=== PATIENT | male | born 1960 | race Caucasian/White ===

== ENCOUNTER 2016-10-30 10:12 | Inpatient (IN) | payer BC ==
[~2016-10-30] VITALS: Ht 182.9 cm; Wt 86.4 kg
[~2016-10-30 10:12] MED LIST: LVT/20 PO; OMEP20CA9 PO; ONDA4TAB10 SL; ONDA4TAB54 PO; OXYC-57 PO
[2016-10-30] MEDS ORDERED: DICY20TA10 PO (10:36)
[2016-10-30] MEDS ORDERED: ONDANSETRON 8 MG/54 ML D5W IV STA (10:50)
[2016-10-30] MEDS ORDERED: SODIUM CHLORIDE 0.9% 1000ML 1,000 ML IV STA ×2 (10:52)
[2016-10-30 10:59] LABS: ALT/SGPT 24 U/L (12-78); BLOOD UREA NITROGEN 25 mg/dl (7-18); BUN/CREATININE RATIO 16.5 (10-20); CALCIUM 9.6 mg/dl (8.5-10.1); CARBON DIOXIDE 23 mmol/L (21-32); CHLORIDE 103 mmol/L (98-107); GLUCOSE 126 mg/dl (70-99); POTASSIUM 4.4 mmol/L (3.5-5.1); SODIUM 138 mmol/L (136-145)
[2016-10-30] MEDS ORDERED: HYDROmorphone INJ 1 MG/ML SYR IV PRN (11:00)
[2016-10-30] MEDS ORDERED: OPTIRAY 320 IV PRN (11:00)
[2016-10-30 11:02] LABS: ALKALINE PHOSPHATASE 97 U/L (45-117); AST/SGOT 18 U/L (15-37)
[2016-10-30 11:03] LABS: BASO % 0.1 %; BASO ABS # 0.01 K/uL (0-0.2); COMPLETE YES; EOS % 0.2 %; HEMATOCRIT 50.9 % (42-52); IG% 0.2 %; LYMPH % 6.9 %; LYMPH ABS # 0.84 K/uL (1.2-3.4); MEAN CELL VOLUME 88.5 fL (80-100); MEAN CORPUSCULAR HGB CONC 36.1 g/dl (32-36); MEAN PLATELET VOLUME 10.9 fL (7.4-10.4); MONO % 8.9 %; NEUT % 83.7 %; PLATELET COUNT 287 K/uL (130-400); RED BLOOD COUNT 5.75 M/uL (4.7-6.1); WHITE BLOOD COUNT 12.12 K/uL (4.8-10.8)
[2016-10-30] MEDS ORDERED: METOCLOPRAMIDE HCL INJ 5 MG/ML 2 ML VIAL IV STA (12:12)
[2016-10-30] MEDS ORDERED: DiphenhydrAMINE HCL 50 MG/ML VIAL IV STA (12:12)
--- NOTE | 2016-10-30 14:17 | DIAGNOSTIC IMAGING REPORT ---
CT ABD/PELVIS IV AND ORAL CONT CLINICAL HISTORY: Upper abdominal pain. History of prior cholecystectomy. COMPARISON STUDY: 05/12/2016 TECHNIQUE: Following the IV administration of 93 mL of Optiray-320, CT scan of the abdomen and pelvis was performed from the lung bases to the proximal femurs. Images are reviewed in the axial, sagittal, and coronal planes. IV contrast was administered without complication. CT DOSE: 562.48 mGy.cm FINDINGS: Lower chest: There are increased bibasilar markings with areas of tree in bud opacities. The findings are likely inflammatory/postinflammatory. There is a moderate hiatal hernia Liver: The contrast-enhanced liver is normal in size, contour, and attenuation. There is no intrahepatic biliary ductal dilatation. The hepatic veins and portal veins are patent. Gallbladder: Surgically absent Spleen: Normal in size and attenuation. Pancreas: Unremarkable. Adrenal glands: Unremarkable. Kidneys: There is symmetric renal cortical enhancement. The kidneys are normal in size without hydronephrosis. Bowel: There are multiple dilated fluid-filled small bowel loops with multiple air-fluid levels. The distal ileum is of normal caliber. The findings are consistent with a distal small bowel obstruction. The transition is located within 5 cm of the ileocecal valve. Peritoneum: No free air is visualized. There is a small amount of free pelvic fluid present. Vasculature: The abdominal aorta is normal in course and caliber. Adenopathy: None. Pelvic viscera: The bladder, and pelvic viscera are unremarkable. Skeletal structures: No destructive osseous lesions are seen. IMPRESSION: 1. Interval development of a distal small bowel obstruction. There is a small amount of free pelvic fluid. There is no pneumatosis. There is no portal venous gas. 2. Hiatal hernia 3. No evidence of pathologic adenopathy 4. Tree-in-bud airspace opacities the lung bases. Electronically signed by: Adiel Jones M.D. 10/30/2016 2:15 PM Dictated Date/Time: 10/30/2016 2:08 PM
--- NOTE | 2016-10-30 15:43 | Medical Consult ---
Consultation Date of Consultation: Oct 30, 2016. Attending Physician: Reason for Consultation: SBO History of Present Illness to ER with 3 days of N/V, now some abd pain- h/o prior episodes- "not as bad" h/o lap donald and hiatal hernia repair CT shows distal sbo- sm bowel 4.4 cm Past Medical/Surgical History Medical Problems: (1) Abdominal pain Status: Acute (2) Abnormal abdominal CT scan Status: Acute (3) Hiatal hernia Status: Acute (4) Incarcerated hiatal hernia Status: Acute (5) Intractable abdominal pain Status: Acute (6) Nausea and vomiting Status: Acute (7) Postoperative complication Status: Acute Family History Patient reports no known family medical history. Social History Smoking Status: Never Smoker Drug Use: none Marital Status: Housing Status: lives with family Occupation Status: employed Allergies Coded Allergies: No Known Allergies (Unverified , 05/12/16) Current Inpatient Medications Current Inpatient Medications Medications (Trade) Dose Ordered Sig/Blayne Route Start Time Stop Time Status Last Admin Dose Admin Hydromorphone HCl 1 mg 1 mg Q15M PRN IV 10/30/16 11:00 11/13/16 10:59 10/30/16 11:03 1 MG Sodium Chloride (Nss 1000ml) 1,000 ml @ 125 mls/hr Q8H STAT IV 10/30/16 10:52 10/30/16 18:51 10/30/16 12:14 125 MLS/HR Ioversol (Optiray 320) 111 ml UD PRN IV 10/30/16 11:00 11/03/16 10:59 Review of Systems Constitutional: No chills, No fever Respiratory: No cough, No sputum, No wheezing Cardiovascular: No chest pain Abdomen: + nausea, + pain, + vomiting Musculoskeletal: No joint pain Genitourinary - Male: No dysuria Neurologic: + weakness Endocrine: No fatigue Integumentary: No rash Physical Exam Date Time Temp Pulse Resp B/P Pulse Ox O2 Delivery O2 Flow Rate FiO2 10/30/16 13:48 88 18 148/93 96 Room Air 10/30/16 12:15 93 16 135/89 95 Room Air 10/30/16 12:05 88 10/30/16 10:15 36.3 97 18 124/85 97 Room Air General Appearance: + mild distress (from nausea) Head: normocephalic Eyes: sclerae normal Neck: supple Respiratory/Chest: normal breath sounds Cardiovascular: regular rate, rhythm Abdomen/GI: + distended (mild tenderness, decreased bowel sounds) Extremities/Musculoskelatal: no pedal edema Neurologic/Psych: alert Skin: no rash Laboratory Results Last 24 Hours Test 10/30/16 10:30 10/30/16 10:50 10/30/16 15:14 Sodium Level 138 mmol/L Potassium Level 4.4 mmol/L Chloride Level 103 mmol/L Carbon Dioxide Level 23 mmol/L Anion Gap 12.0 mmol/L Blood Urea Nitrogen 25 mg/dl Creatinine 1.50 mg/dl Est Creatinine Clear Calc Drug Dose 60.4 ml/min Estimated GFR () 59.5 Estimated GFR (Non- 51.3 BUN/Creatinine Ratio 16.5 Random Glucose 126 mg/dl Calcium Level 9.6 mg/dl Total Bilirubin 1.5 mg/dl Direct Bilirubin 0.4 mg/dl Aspartate Amino Transf (AST/SGOT) 18 U/L Alanine Aminotransferase (ALT/SGPT) 24 U/L Alkaline Phosphatase 97 U/L Troponin I < 0.015 ng/ml Total Protein 8.6 gm/dl Albumin 4.4 gm/dl Lipase 82 U/L White Blood Count 12.12 K/uL Red Blood Count 5.75 M/uL Hemoglobin 18.4 g/dL Hematocrit 50.9 % Mean Corpuscular Volume 88.5 fL Mean Corpuscular Hemoglobin 32.0 pg Mean Corpuscular Hemoglobin Concent 36.1 g/dl Platelet Count 287 K/uL Mean Platelet Volume 10.9 fL Neutrophils (%) (Auto) 83.7 % Lymphocytes (%) (Auto) 6.9 % Monocytes (%) (Auto) 8.9 % Eosinophils (%) (Auto) 0.2 % Basophils (%) (Auto) 0.1 % Neutrophils # (Auto) 10.15 K/uL Lymphocytes # (Auto) 0.84 K/uL Monocytes # (Auto) 1.08 K/uL Eosinophils # (Auto) 0.02 K/uL Basophils # (Auto) 0.01 K/uL RDW Standard Deviation 42.2 fL RDW Coefficient of Variation 13.0 % Immature Granulocyte % (Auto) 0.2 % Immature Granulocyte # (Auto) 0.02 K/uL Assessment & Plan 10/30/16- adm with sbo, N/V, severe dehydration and likely abnl electrolytes NG to low/ intermittent suction, check Mg, Phos, IV fluids film in am- monitor progress- if worsens- OR
[2016-10-30] MEDS ORDERED: PROMETHAZINE HCL INJ 12.5 MG in SODIUM CHLORIDE 0.9% 50ML 50 ML IV PRN (16:00)
[2016-10-30] MEDS ORDERED: PROMETHAZINE HCL INJ 25 MG/ML 1 ML VIAL ONE (16:06)
[2016-10-30 16:13] LABS: MAGNESIUM 2.2 mg/dl (1.8-2.4); PHOSPHORUS 1.8 mg/dl (2.5-4.9)
[2016-10-30] MEDS ORDERED: MoRPHine SULFATE 4 MG/ML 1 ML CARP\\VIAL IV PRN (16:15)
[2016-10-30 16:45] VITALS: BP 140/90; PULSE 75; TEMP 36.6; O2SAT 92; Ht 182.9 cm; Wt 86.4 kg
--- NOTE | 2016-10-30 16:45 | EMERGENCY ROOM VISIT NOTE ---
History Report prepared by Bernarda: Shravan Barney Under the Supervision of: Dr. Lauri Martines M.D. First contact with patient: 10:45 Chief Complaint: ABDOMINAL PAIN Stated Complaint: ABD. PAIN Nursing Triage Summary: pt c/o bilat abd pain feels sob and has not eaten or drank in 3 days. sx started 3 days ago History of Present Illness The patient is a 55 year old male who presents to the Emergency Room with complaints of bilateral upper abdominal pain starting 3 days ago. The patient has a history of similar pain occurring prior to having hernia repair and cholecystectomy. He has been having similar pain intermittently for the past year. He also has a history of colonoscopy and endoscopy with normal results. 3 days ago, the patient's pain became constant. He describes it to be waxing and waning. He has intermittent pain radiation through the back. He currently rates a pain intensity of 5/10. He has worsening pain with eating and palpation. The patient also has a bloated abdomen. He also complains of nausea and vomiting. He notes diaphoresis after vomiting episodes. He also has some shortness of breath. He denies any worsening pain with breathing. Pt denies LOC, headache, fevers, chills, visual changes, neck pain, chest pain, melena, hematochezia, urinary symptoms, numbness, weakness, lymphadenopathy, rash, or other complaints. Source of History: patient Onset: 3 days ago Position: abdomen (bilateral upper) Timing: waxes/wanes Modifying Factors (Worsening): eating, other (palpation) Associated Symptoms: + SOB, + diaphoresis, + nausea, + vomiting Review of Systems See HPI for pertinent positives and negatives. A total of ten systems were reviewed and were otherwise negative. Past Medical & Surgical Medical Problems: (1) Hiatal hernia (2) SBO (small bowel obstruction) (3) Unilateral inguinal hernia Surgical Problems: (1) S/P cholecystectomy Family History Patient reports no known family medical history. Social History Smoking Status: Never Smoker Alcohol Use: none Drug Use: none Marital Status: Housing Status: lives with family Occupation Status: employed Current/Historical Medications Scheduled Vardenafil (Levitra), 20 MG PO DIRECTED Scheduled PRN Dicyclomine Hcl (Dicyclomine Hcl), 40 MG PO QID PRN for Pain Omeprazole (Prilosec), 20 MG PO DAILY PRN for pt Oxycodone/Acetaminophen 5MG/325MG (Percocet 5MG/325MG), 1-2 TABS PO Q6 PRN for Pain Allergies Coded Allergies: No Known Allergies (Unverified , 05/12/16) Physical Exam Vital Signs Date Time Temp Pulse Resp B/P Pulse Ox O2 Delivery O2 Flow Rate FiO2 10/30/16 16:32 83 16 137/88 95 Room Air 10/30/16 13:48 88 18 148/93 96 Room Air 10/30/16 12:15 93 16 135/89 95 Room Air 10/30/16 12:05 88 10/30/16 10:15 36.3 97 18 124/85 97 Room Air Physical Exam GENERAL: Awake, alert, uncomfortable-appearing, in mild distress HENT: Normocephalic, atraumatic. Oropharynx unremarkable. EYES: Normal conjunctiva. Sclera non-icteric. NECK: Supple. No nuchal rigidity. FROM. No JVD. RESPIRATORY: Clear to auscultation. CARDIAC: Regular rate, normal rhythm. Extremities warm and well perfused. Pulses equal. ABDOMEN: Soft, non-distended. Left upper quadrant and epigastric tenderness to palpation. No rebound or guarding. No masses. RECTAL: Deferred. MUSCULOSKELETAL: Chest examination reveals no tenderness. The back is symmetrical on inspection without obvious abnormality. There is no CVA tenderness to palpation. No joint edema. LOWER EXTREMITIES: Calves are equal size bilaterally and non-tender. No edema. No discoloration. NEURO: Normal sensorium. No sensory or motor deficits noted. SKIN: No rash or jaundice noted. Medical Decision & Procedures ER Provider Diagnostic Interpretation: CT: Radiology results as stated below per my review and radiologist interpretation CT ABD/PELVIS IV AND ORAL CONT CLINICAL HISTORY: Upper abdominal pain. History of prior cholecystectomy. COMPARISON STUDY: 05/12/2016 TECHNIQUE: Following the IV administration of 93 mL of Optiray-320, CT scan of the abdomen and pelvis was performed from the lung bases to the proximal femurs. Images are reviewed in the axial, sagittal, and coronal planes. IV contrast was administered without complication. CT DOSE: 562.48 mGy.cm FINDINGS: Lower chest: There are increased bibasilar markings with areas of tree in bud opacities. The findings are likely inflammatory/postinflammatory. There is a moderate hiatal hernia Liver: The contrast-enhanced liver is normal in size, contour, and attenuation. There is no intrahepatic biliary ductal dilatation. The hepatic veins and portal veins are patent. Gallbladder: Surgically absent Spleen: Normal in size and attenuation. Pancreas: Unremarkable. Adrenal glands: Unremarkable. Kidneys: There is symmetric renal cortical enhancement. The kidneys are normal in size without hydronephrosis. Bowel: There are multiple dilated fluid-filled small bowel loops with multiple air-fluid levels. The distal ileum is of normal caliber. The findings are consistent with a distal small bowel obstruction. The transition is located within 5 cm of the ileocecal valve. Peritoneum: No free air is visualized. There is a small amount of free pelvic fluid present. Vasculature: The abdominal aorta is normal in course and caliber. Adenopathy: None. Pelvic viscera: The bladder, and pelvic viscera are unremarkable. Skeletal structures: No destructive osseous lesions are seen. IMPRESSION: 1. Interval development of a distal small bowel obstruction. There is a small amount of free pelvic fluid. There is no pneumatosis. There is no portal venous gas. 2. Hiatal hernia 3. No evidence of pathologic adenopathy 4. Tree-in-bud airspace opacities the lung bases. Electronically signed by: Adiel Jones M.D. 10/30/2016 2:15 PM Dictated Date/Time: 10/30/2016 2:08 PM Laboratory Results 10/30/16 10:50 Red Blood Count 5.75, Mean Corpuscular Volume 88.5, Mean Corpuscular Hemoglobin 32.0, Mean Corpuscular Hemoglobin Concent 36.1, Mean Platelet Volume 10.9, Neutrophils (%) (Auto) 83.7, Lymphocytes (%) (Auto) 6.9, Monocytes (%) (Auto) 8.9, Eosinophils (%) (Auto) 0.2, Basophils (%) (Auto) 0.1, Neutrophils # (Auto) 10.15, Lymphocytes # (Auto) 0.84, Monocytes # (Auto) 1.08, Eosinophils # (Auto) 0.02, Basophils # (Auto) 0.01 10/30/16 10:30 Test 10/30/16 10:30 10/30/16 10:50 10/30/16 15:55 Anion Gap 12.0 mmol/L (3-11) Est Creatinine Clear Calc Drug Dose 60.4 ml/min Estimated GFR () 59.5 Estimated GFR (Non- 51.3 BUN/Creatinine Ratio 16.5 (10-20) Calcium Level 9.6 mg/dl (8.5-10.1) Phosphorus Level 1.8 mg/dl (2.5-4.9) Magnesium Level 2.2 mg/dl (1.8-2.4) Total Bilirubin 1.5 mg/dl (0.2-1) Direct Bilirubin 0.4 mg/dl (0-0.2) Aspartate Amino Transf (AST/SGOT) 18 U/L (15-37) Alanine Aminotransferase (ALT/SGPT) 24 U/L (12-78) Alkaline Phosphatase 97 U/L (45-117) Troponin I < 0.015 ng/ml (0-0.045) Total Protein 8.6 gm/dl (6.4-8.2) Albumin 4.4 gm/dl (3.4-5.0) Lipase 82 U/L (73-393) White Blood Count 12.12 K/uL (4.8-10.8) Red Blood Count 5.75 M/uL (4.7-6.1) Hemoglobin 18.4 g/dL (14.0-18.0) Hematocrit 50.9 % (42-52) Mean Corpuscular Volume 88.5 fL (80-100) Mean Corpuscular Hemoglobin 32.0 pg (25-34) Mean Corpuscular Hemoglobin Concent 36.1 g/dl (32-36) Platelet Count 287 K/uL (130-400) Mean Platelet Volume 10.9 fL (7.4-10.4) Neutrophils (%) (Auto) 83.7 % Lymphocytes (%) (Auto) 6.9 % Monocytes (%) (Auto) 8.9 % Eosinophils (%) (Auto) 0.2 % Basophils (%) (Auto) 0.1 % Neutrophils # (Auto) 10.15 K/uL (1.4-6.5) Lymphocytes # (Auto) 0.84 K/uL (1.2-3.4) Monocytes # (Auto) 1.08 K/uL (0.11-0.59) Eosinophils # (Auto) 0.02 K/uL (0-0.5) Basophils # (Auto) 0.01 K/uL (0-0.2) RDW Standard Deviation 42.2 fL (36.4-46.3) RDW Coefficient of Variation 13.0 % (11.5-14.5) Immature Granulocyte % (Auto) 0.2 % Immature Granulocyte # (Auto) 0.02 K/uL (0.00-0.02) Lactic Acid Level 1.3 mmol/L (0.4-2.0) Laboratory results reviewed by me Medications Administered Medications (Trade) Dose Ordered Sig/Blayne Route Start Time Stop Time Status Last Admin Dose Admin Hydromorphone HCl (Dilaudid Inj) 1 mg Q15M PRN IV 10/30/16 11:00 11/13/16 10:59 10/30/16 11:03 1 MG Ondansetron HCl 8 mg 8 mg NOW STAT IV 10/30/16 10:50 10/30/16 10:53 DC 10/30/16 11:02 8 MG Sodium Chloride 1,000 ml @ 125 mls/hr Q8H STAT IV 10/30/16 10:52 10/30/16 18:51 10/30/16 12:14 125 MLS/HR Sodium Chloride (Nss 1000ml) 1,000 ml @ 999 mls/hr Q1H1M STAT IV 10/30/16 10:52 10/30/16 11:52 DC 10/30/16 11:03 999 MLS/HR Metoclopramide HCl (Reglan Inj) 10 mg NOW STAT IV 10/30/16 12:12 10/30/16 12:13 DC 10/30/16 12:21 10 MG Diphenhydramine HCl (Benadryl Inj) 25 mg NOW STAT IV 10/30/16 12:12 10/30/16 12:13 DC 10/30/16 12:21 25 MG Promethazine HCl (Phenergan Inj) 25 mg STK-MED ONCE .ROUTE 10/30/16 16:06 10/30/16 16:08 DC 10/30/16 16:12 12.5 MG ECG Indication: abdominal pain Rate (beats per minute): 91 Rhythm: normal sinus Findings: nonspecific-ST abn (Lateral), no ectopy Comparison ECG Date: March 24, 2016 Change: Nonspecific ST abnormalities in the lateral leads are new when compared to March 24, 2016. ED Course 1045: The patient was evaluated in room A12B. A complete history and physical exam was performed. 1050: Ondansetron HCl 8 mg IV, Sodium Chloride 1000 ml @ 999 mls/hr IV, Sodium Chloride 1000 ml @ 125 mls/hr IV 1100: Dilaudid In 1 mg IV 1212: Benadryl Inj 25 mg IV, Reglan Inj 10 mg IV. The patient is complaining of nausea. 1409: I reevaluated the patient who is resting comfortably. 1600: Upon reexamination, the patient was resting comfortably. I discussed the test results and treatment plan with him. I spoke with EDDIE Novoa with [facility]. The patient will be evaluated for further management. Medical Decision Triage Nursing notes reviewed. The patient's presentation and history were concerning for abdominal pain. Etiologies such as appendicitis, diverticulitis, obstruction, inflammatory bowel disease, renal colic, PUD, biliary pathology, pancreatitis, mesenteric ischemia, aortic pathology, infections, genitourinary, UTI, perforated viscus, as well as others were entertained. Patient was evaluated. He was uncomfortable. He was treated with Zofran and Dilaudid. He was hydrated with normal saline. The patient was prepped for CT imaging. His blood count revealed a mild leukocytosis. Chemistry panel and LFTs were unremarkable. Patient had vomiting and was given Reglan and Benadryl. He was feeling better with this. He still had some abdominal discomfort. The patient had CT imaging and was found to have a small bowel obstruction. Consultation was made to internal medicine for further management in the hospital. Medicine did consult with general surgery. The chart was completed utilizing [employer] Speech voice recognition software. Grammatical errors, random word insertions, pronoun errors, and incomplete sentences are an occasional consequence of this system due to software limitations, ambient noise, and hardware issues. Any formal questions or concerns about the content, text, or information contained within the body of this dictation should be directly addressed to the physician for clarification. Consults Time Called: 1500 Consulting Physician: EDDIE Nvooa with [facility] Returned Call: [phone] I spoke with EDDIE Novoa with [facility]. Impression Primary Impression: SBO (small bowel obstruction) Scribe Attestation The scribe's documentation has been prepared under my direction and personally reviewed by me in its entirety. I confirm that the note above accurately reflects all work, treatment, procedures, and medical decision making performed by me. Departure Information Dispostion Being Evaluated By Hospitalist Referrals No Doctor, Assigned (PCP) Patient Instructions My [facility]
[2016-10-30] MEDS: PANTOprazole INJ 40 MG in SYRINGE 0 ML IV SCH (17:35)
[2016-10-30] MEDS: SODIUM CHLORIDE 0.9% 1000ML 1,000 ML IV SCH (17:35)
[2016-10-30] MEDS ORDERED: SODIUM PHOSPHATE 3 MMOL/1 ML INFUSION IV STA (18:24)
--- NOTE | 2016-10-30 18:32 | DIAGNOSTIC IMAGING REPORT ---
KUB CLINICAL HISTORY: Enteric tube placement. FINDINGS: An AP, portable, supine abdominal radiograph is correlated with abdominal CT performed the same day 10/30/16. An enteric tube is coiled above the diaphragm, likely contained within a hiatal hernia. Cholecystectomy clips are noted. Bowel obstruction persists. No evidence of intraperitoneal free air is seen on this supine examination. No abnormal abdominal calcifications are identified. The skeletal structures are osteopenic. Lumbosacral spondylosis is observed. IMPRESSION: 1. The enteric tube is coiled above the diaphragm, likely contained within a hiatal hernia. 2. Bowel obstruction persists. Electronically signed by: Brown Valerio M.D. 10/30/2016 6:31 PM Dictated Date/Time: 10/30/2016 6:29 PM
[2016-10-30] MEDS ORDERED: SODIUM PHOSPHATE INJ 15 MMOL in SODIUM CHLORIDE 0.9% 250ML 250 ML IV ONE (18:45)
--- NOTE | 2016-10-30 19:27 | DIAGNOSTIC IMAGING REPORT ---
KUB CLINICAL HISTORY: Enteric tube placement repositioning. FINDINGS: An AP, portable, supine abdominal radiograph is compared to KUB and abdominal CT performed the same day 10/30/16. There is unchanged position of the enteric tube, which is coiled above the diaphragm and likely contained within a hiatal hernia. Cholecystectomy clips are noted. Bowel obstruction persists. No evidence of intraperitoneal free air is seen on this supine examination. No abnormal abdominal calcifications are identified. The skeletal structures are osteopenic. Lumbosacral spondylosis is observed. IMPRESSION: 1. Unchanged position of the enteric tube which is coiled above the diaphragm, likely contained within a hiatal hernia. 2. Bowel obstruction persists. Electronically signed by: Brown Valerio M.D. 10/30/2016 7:26 PM Dictated Date/Time: 10/30/2016 7:25 PM
--- NOTE | 2016-10-30 19:43 | History and Physical ---
History & Physical Date & Time of Service: Oct 30, 2016 at 19:23 Chief Complaint: Abdominal Pain, Nausea, Vomiting Primary Care Physician: Dr. Kemp History of Present Illness 55 year old male who presents to the ER with abdominal pain, nausea, and vomiting. Patient reports he started getting sick 3 days ago. He has had persistent nausea and vomiting. He reports LLQ pain. He describes it as dull and persistent. For the past several months, he reports he has been getting episodes of LLQ pain that are sharp and will resolve after a couple of hours. He has been following with GI who started him on Bentyl. He reports he had a formed bowel movement yesterday however it was a small amount. He is unsure when his last normal bowel movement was. He reports increasing abdominal distention. He denies hematemesis or coffee ground emesis. He describes his emesis as bilious. He denies chest pain. He reports some shortness of breath when the pain is severe. No lightheadedness, dizziness, diaphoresis, or syncopal events. He denies fever and chills. No cough or sputum production. No urinary symptoms. In the ER, patient had a CT abd/pelvis that is showing SBO. WBC 12K, creat 1.5. Past Medical/Surgical History Surgical Problems: (1) H/O inguinal hernia repair Status: Chronic (2) History of repair of hiatal hernia Status: Chronic (3) S/P cholecystectomy Status: Chronic Family History Patient reports no known family medical history. Social History Smoking Status: Never Smoker Alcohol Use: none Immunizations History of Tetanus Vaccine?: Yes Tetanus Immunization Date: February 18, 2013 History of Hepatitis B Vaccine: Yes Hepatitis Immunization Date: Mar 02, 2000 Multi-Drug Resistant Organisms History of MDRO: No Allergies Coded Allergies: No Known Allergies (Unverified , 05/12/16) Home Medications Scheduled Vardenafil (Levitra), 20 MG PO DIRECTED Scheduled PRN Dicyclomine Hcl (Dicyclomine Hcl), 40 MG PO QID PRN for Pain Omeprazole (Prilosec), 20 MG PO DAILY PRN for pt Oxycodone/Acetaminophen 5MG/325MG (Percocet 5MG/325MG), 1-2 TABS PO Q6 PRN for Pain Review of Systems 10 point review of systems was completed with the pertinent positives and negatives noted per the HPI Physical Exam Vital Signs Date Time Temp Pulse Resp B/P Pulse Ox O2 Delivery O2 Flow Rate FiO2 10/30/16 16:45 36.6 75 16 140/90 92 Room Air 10/30/16 16:32 83 16 137/88 95 Room Air 10/30/16 13:48 88 18 148/93 96 Room Air 10/30/16 12:15 93 16 135/89 95 Room Air 10/30/16 12:05 88 10/30/16 10:15 36.3 97 18 124/85 97 Room Air General Appearance: + mild distress (due to nausea/pain) Head: normocephalic Eyes: normal inspection ENT: hearing grossly normal Neck: supple, no JVD Respiratory/Chest: lungs clear, normal breath sounds, no respiratory distress Cardiovascular: regular rate, rhythm, no edema Abdomen/GI: soft, + tenderness (LLQ), + abnormal bowel sounds (hyperactive RUQ , RLQ; hypoactive LLQ, LUQ) Extremities/Musculoskelatal: normal inspection, no calf tenderness Neurologic/Psych: no motor/sensory deficits, alert, normal mood/affect, oriented x 3 Skin: normal color, warm/dry Diagnostics Laboratory Results Results Past 24 Hours Test 10/30/16 10:30 10/30/16 10:50 10/30/16 15:55 Range/Units Sodium Level 138 136-145 mmol/L Potassium Level 4.4 3.5-5.1 mmol/L Chloride Level 103 98-107 mmol/L Carbon Dioxide Level 23 21-32 mmol/L Anion Gap 12.0 3-11 mmol/L Blood Urea Nitrogen 25 7-18 mg/dl Creatinine 1.50 0.60-1.40 mg/dl Est Creatinine Clear Calc Drug Dose 60.4 ml/min Estimated GFR () 59.5 Estimated GFR (Non- 51.3 BUN/Creatinine Ratio 16.5 10-20 Random Glucose 126 70-99 mg/dl Calcium Level 9.6 8.5-10.1 mg/dl Phosphorus Level 1.8 2.5-4.9 mg/dl Magnesium Level 2.2 1.8-2.4 mg/dl Total Bilirubin 1.5 0.2-1 mg/dl Direct Bilirubin 0.4 0-0.2 mg/dl Aspartate Amino Transf (AST/SGOT) 18 15-37 U/L Alanine Aminotransferase (ALT/SGPT) 24 12-78 U/L Alkaline Phosphatase 97 45-117 U/L Troponin I < 0.015 0-0.045 ng/ml Total Protein 8.6 6.4-8.2 gm/dl Albumin 4.4 3.4-5.0 gm/dl Lipase 82 73-393 U/L White Blood Count 12.12 4.8-10.8 K/uL Red Blood Count 5.75 4.7-6.1 M/uL Hemoglobin 18.4 14.0-18.0 g/dL Hematocrit 50.9 42-52 % Mean Corpuscular Volume 88.5 80-100 fL Mean Corpuscular Hemoglobin 32.0 25-34 pg Mean Corpuscular Hemoglobin Concent 36.1 32-36 g/dl Platelet Count 287 130-400 K/uL Mean Platelet Volume 10.9 7.4-10.4 fL Neutrophils (%) (Auto) 83.7 % Lymphocytes (%) (Auto) 6.9 % Monocytes (%) (Auto) 8.9 % Eosinophils (%) (Auto) 0.2 % Basophils (%) (Auto) 0.1 % Neutrophils # (Auto) 10.15 1.4-6.5 K/uL Lymphocytes # (Auto) 0.84 1.2-3.4 K/uL Monocytes # (Auto) 1.08 0.11-0.59 K/uL Eosinophils # (Auto) 0.02 0-0.5 K/uL Basophils # (Auto) 0.01 0-0.2 K/uL RDW Standard Deviation 42.2 36.4-46.3 fL RDW Coefficient of Variation 13.0 11.5-14.5 % Immature Granulocyte % (Auto) 0.2 % Immature Granulocyte # (Auto) 0.02 0.00-0.02 K/uL Lactic Acid Level 1.3 0.4-2.0 mmol/L Diagnostic Radiology CT ABD/PELVIS IMPRESSION: 1. Interval development of a distal small bowel obstruction. There is a small amount of free pelvic fluid. There is no pneumatosis. There is no portal venous gas. 2. Hiatal hernia 3. No evidence of pathologic adenopathy 4. Tree-in-bud airspace opacities the lung bases. Impression Assessment and Plan SBO - admit to med/surg - obstruction likely due to adhesions from previous abdominal surgeries - evaluated by Dr. Piña in the ED - will place NG, keep NPO, and follow up abdominal XR in AM - lactate noted to be WNL, vitals stable - IVF, pain and nausea control ALIS - pre renal due to vomiting - IVF, follow up labs in AM HYPOPHOSPHATEMIA - due to GI loss from vomiting - replace, follow up labs in AM LEUKOCYTOSIS - likely reactionary from pain/vomiting - no abdominal source noted on CT however opacities noted at the lung bases - ? aspiration from vomiting - check U/A, urine culture, and CXR DVT PROPHYLAXIS - SCDs DISPO - In my clinical judgment this beneficiary meets acute admission criteria, established by [facility], that includes being hospitalized through two midnights. I have seen and examined the patient above and have discussed the care plan with the provider above. On exam the patient had his NGT in place and he was resting comfortably stating his pain was under control. He was afebrile and hemodynamically stable with a normal heart and lung exam and abdomen that was soft and not distended without guarding and TTP in the LLQ. He recently had a KUB to verify placement of the NGT which revealed the tube end above the diaphragm possibly coiled within his hiatal hernia. It was pulled back and re- advanced, however, a repeat KUB showed it in the same place. I had a discussion with radiology who quoted this to me. I then notified Dr. Piña who agreed that despite the possible aspiration risk we should put the tube to low, intermittent suction to see what relief we can provide. The patient and his were apprised of all this. Cont with care plan as above. Appreciate General Surgery care of this patient-plan for OR if patient worsens. SCDs for DVT prophy in preparation for this possibility. Inge Olivas DO (Hospitalist ) Level of Care Med/Surg Advanced Directives Existing Living Will: No Existing Power of Android Ui Developer: No Resuscitation Status FULL RESUSCITATION VTE Prophylaxis VTE Risk Assessment Done? Y/N: Yes Risk Level: Low Given or contraindicated: SCD's (possible procedure upcoming)
--- NOTE | 2016-10-30 20:35 | DIAGNOSTIC IMAGING REPORT ---
SINGLE VIEW CHEST CLINICAL HISTORY: Leukocytosis. FINDINGS: An AP, portable, upright chest radiograph is compared to study dated 03/24/2016. Correlation is made with abdominal CT dated 10/30/16. The examination is degraded by portable technique and patient rotation. An enteric tube has likely been placed. The cardiomediastinal silhouette is unremarkable. A hiatal hernia is noted. There is atherosclerotic calcification of the thoracic aorta. There is mild elevation of the right hemidiaphragm with bibasilar airspace opacities. The upper lobes appear clear. No pleural effusion are pneumothorax is seen. The skeletal structures are osteopenic. The bony thorax is grossly intact. IMPRESSION: 1. There are nonspecific bibasilar airspace opacities. This could represent atelectasis, developing pneumonia, and/or aspiration pneumonitis. Clinical correlation will be required. 2. An enteric tube has likely been placed. The tip is not well visualized. Electronically signed by: Brown Valerio M.D. 10/30/2016 8:34 PM Dictated Date/Time: 10/30/2016 8:30 PM
[2016-10-30] MEDS ORDERED: INFLUENZA VIRUS QUAD VACCINE 0.5 ML SYR IM. ONE (21:00)
[2016-10-30] MEDS ORDERED: INFLUENZA ADMINISTRATION CHARGE ONE (21:00)
[2016-10-30] MEDS: CHLORASEPTIC 1.4% SOLN 180 ML BTL MT PRN (22:15)
[2016-10-30 23:27] VITALS: BP 146/82; PULSE 81; TEMP 36.9; O2SAT 96
[2016-10-31] VITALS (10 sets, daily range): BP systolic 111–138; BP diastolic 67–86; PULSE 71–92; TEMP 36.2–36.7; O2SAT 91–98
[2016-10-31] MEDS: SODIUM CHLORIDE 0.9% 1000ML 1,000 ML IV SCH ×3 (04:34→10:27)
[2016-10-31] MEDS ORDERED: CEFOXITIN IV 2,000 MG in DEXTROSE 5% 50ML 50 ML IV SCH (06:00)
--- NOTE | 2016-10-31 06:15 | Surgery Progress Note ---
Surgery Progress Note Date of Service Oct 31, 2016. Subjective Lt upper abd pain continues- rec MSO4- pt appears to have minimal improvement vitals stable Objective Vital Signs: Date Time Temp Pulse Resp B/P Pulse Ox O2 Delivery O2 Flow Rate FiO2 10/30/16 23:35 Room Air 10/30/16 23:27 36.9 81 16 146/82 96 Room Air 10/30/16 19:30 Room Air 10/30/16 16:45 36.6 75 16 140/90 92 Room Air 10/30/16 16:32 83 16 137/88 95 Room Air 10/30/16 13:48 88 18 148/93 96 Room Air 10/30/16 12:15 93 16 135/89 95 Room Air 10/30/16 12:05 88 10/30/16 10:15 36.3 97 18 124/85 97 Room Air General Appearance: + mild distress (from abd pain) Respiratory/Chest: no respiratory distress Abdomen: + distended, + tenderness (tender over Lt upper abd- site of distended bowel) Laboratory Results: Results Past 24 Hours Test 10/30/16 10:30 10/30/16 10:50 10/30/16 15:55 10/31/16 04:44 Range/Units Sodium Level 138 136-145 mmol/L Potassium Level 4.4 3.5-5.1 mmol/L Chloride Level 103 98-107 mmol/L Carbon Dioxide Level 23 21-32 mmol/L Anion Gap 12.0 3-11 mmol/L Blood Urea Nitrogen 25 7-18 mg/dl Creatinine 1.50 0.60-1.40 mg/dl Est Creatinine Clear Calc Drug Dose 60.4 ml/min Estimated GFR () 59.5 Estimated GFR (Non- 51.3 BUN/Creatinine Ratio 16.5 10-20 Random Glucose 126 70-99 mg/dl Calcium Level 9.6 8.5-10.1 mg/dl Phosphorus Level 1.8 2.5-4.9 mg/dl Magnesium Level 2.2 1.8-2.4 mg/dl Total Bilirubin 1.5 0.2-1 mg/dl Direct Bilirubin 0.4 0-0.2 mg/dl Aspartate Amino Transf (AST/SGOT) 18 15-37 U/L Alanine Aminotransferase (ALT/SGPT) 24 12-78 U/L Alkaline Phosphatase 97 45-117 U/L Troponin I < 0.015 0-0.045 ng/ml Total Protein 8.6 6.4-8.2 gm/dl Albumin 4.4 3.4-5.0 gm/dl Lipase 82 73-393 U/L White Blood Count 12.12 4.8-10.8 K/uL Red Blood Count 5.75 4.7-6.1 M/uL Hemoglobin 18.4 14.0-18.0 g/dL Hematocrit 50.9 42-52 % Mean Corpuscular Volume 88.5 80-100 fL Mean Corpuscular Hemoglobin 32.0 25-34 pg Mean Corpuscular Hemoglobin Concent 36.1 32-36 g/dl Platelet Count 287 130-400 K/uL Mean Platelet Volume 10.9 7.4-10.4 fL Neutrophils (%) (Auto) 83.7 % Lymphocytes (%) (Auto) 6.9 % Monocytes (%) (Auto) 8.9 % Eosinophils (%) (Auto) 0.2 % Basophils (%) (Auto) 0.1 % Neutrophils # (Auto) 10.15 1.4-6.5 K/uL Lymphocytes # (Auto) 0.84 1.2-3.4 K/uL Monocytes # (Auto) 1.08 0.11-0.59 K/uL Eosinophils # (Auto) 0.02 0-0.5 K/uL Basophils # (Auto) 0.01 0-0.2 K/uL RDW Standard Deviation 42.2 36.4-46.3 fL RDW Coefficient of Variation 13.0 11.5-14.5 % Immature Granulocyte % (Auto) 0.2 % Immature Granulocyte # (Auto) 0.02 0.00-0.02 K/uL Lactic Acid Level 1.3 0.4-2.0 mmol/L Assessment & Plan 10/31/16- I do not think he has improved much- I am concerned about his pain Will proceed to OR this am- laparotomy, lysis of adhesions possible bowel resection- discussed with pt and called - they agree
[2016-10-31] MEDS ORDERED: CEFOXITIN SOD 2 GM VIAL IV STA (06:25)
[2016-10-31] MEDS ORDERED: SUCCINYLCHOLINE CHLORIDE 20 MG/ML 10 ML VIAL IV ONE (06:29)
[2016-10-31] MEDS ORDERED: ONDANSETRON INJ 2 MG/ML 2 ML VIAL ONE (06:29)
[2016-10-31] MEDS ORDERED: FENTANYL CITRATE INJ 50 MCG/1 ML 2 ML VIAL ONE (06:29)
[2016-10-31] MEDS ORDERED: ROCURONIUM BROMIDE 10 MG/ML 5 ML VIAL ONE ×2 (06:29→07:47)
[2016-10-31] MEDS ORDERED: PROPOFOL IV EMULSION 10 MG/ML 20 ML VIAL IV ONE (06:29)
[2016-10-31] MEDS ORDERED: DEXAMETHASONE SOD INJ 4 MG/ML VIAL ONE (06:29)
[2016-10-31] MEDS ORDERED: MIDAZOLAM HCL 1 MG/ML 2ML VIAL ONE (06:29)
[2016-10-31] MEDS ORDERED: LIDOCAINE HCL 2% 2 ML VIAL (20MG/ML) ONE (06:29)
[2016-10-31 06:33] LABS: HEMATOCRIT 46.2 % (42-52); MEAN CELL VOLUME 91.3 fL (80-100); MEAN CORPUSCULAR HEMOGLOBIN 31.8 pg (25-34); MEAN CORPUSCULAR HGB CONC 34.8 g/dl (32-36); PLATELET COUNT 259 K/uL (130-400); RED BLOOD COUNT 5.06 M/uL (4.7-6.1); WHITE BLOOD COUNT 10.04 K/uL (4.8-10.8)
[2016-10-31 06:51] LABS: BUN/CREATININE RATIO 21.4 (10-20); CALCIUM 8.4 mg/dl (8.5-10.1); CREATININE 1.1 mg/dl (0.60-1.40); MAGNESIUM 2.2 mg/dl (1.8-2.4); POTASSIUM 3.9 mmol/L (3.5-5.1)
[2016-10-31 07:08] LABS: PHOSPHORUS 3.2 mg/dl (2.5-4.9)
[2016-10-31] MEDS ORDERED: CEFOXITIN SOD 2 GM VIAL ONE (07:09)
[2016-10-31] MEDS ORDERED: KETAMINE HCL INJ 50 MG/ML 10 ML VIAL ONE (07:32)
[2016-10-31] MEDS ORDERED: HYDROmorphone INJ 2 MG/ML SYR/VIAL ONE (07:43)
[2016-10-31] MEDS ORDERED: ATROPINE SULFATE 0.1 MG/ML 5ML SYR IV PRN (08:00)
[2016-10-31] MEDS ORDERED: MoRPHine SULFATE 10 MG/ML CARP/VIAL IV PRN (08:00)
[2016-10-31] MEDS ORDERED: FLUMAZENIL 0.1 MG/1 ML 10 ML VIAL IV PRN (08:00)
[2016-10-31] MEDS ORDERED: NALOXONE HCL 0.4 MG/1 ML VIAL/CARP IV PRN ×2 (08:00→08:30)
[2016-10-31] MEDS ORDERED: LABETALOL HCL IV 5 MG/ML 20ML IV PRN (08:00)
[2016-10-31] MEDS ORDERED: EpHEDrine SULFATE INJ 50 MG/ML AMP IV PRN (08:00)
[2016-10-31] MEDS ORDERED: ONDANSETRON INJ 2 MG/ML 2 ML VIAL IV PRN (08:00)
[2016-10-31] MEDS ORDERED: PHENYLEPHRINE 100MCG/ML 5ML SYR IV PRN (08:00)
[2016-10-31] MEDS ORDERED: MEPERIDINE HCL 25 MG/ML CARP IV PRN (08:00)
[2016-10-31] MEDS ORDERED: LABETALOL HCL IV 5 MG/ML 20ML ONE (08:17)
[2016-10-31] MEDS ORDERED: ONDANSETRON INJ 2 MG/ML 2 ML VIAL IV. PRN (08:30)
--- NOTE | 2016-10-31 08:30 | [facility] Operative Report ---
Operative Report Operative Date Oct 31, 2016. Pre-Operative Diagnosis Left Upper Abdominal Pain Post-Operative Diagnosis small bowel obstruction from adhesions Procedure(s) Performed laparotomy, lysis of adhesions Surgeon Dr. Narayan Piña [employer] Surgeon(s) Emmanuel Juares PA-C Estimated Blood Loss 20mL Findings omental band and small bowel adhesions Specimens None per surgeon Anesthesia gen Complication(s) None Disposition Recovery Room / PACU I attest to the content of the Intraoperative Record and any orders documented therein. Any exceptions are noted below.
[2016-10-31] MEDS: HYDROmorphone INJ 1 MG/ML SYR IV PRN ×4 (08:35→08:50)
--- NOTE | 2016-10-31 08:47 | OPERATIVE REPORT ---
DATE OF OPERATION: 10/31/2016 NAME OF OPERATION: Laparotomy, lysis of adhesions with enterolysis. PREOPERATIVE DIAGNOSIS: Small-bowel obstruction. POSTOPERATIVE DIAGNOSIS: Same with adhesions and small-bowel obstruction. STAFF SURGEON: Dr. Piña. MACHINE LOAD CLERK: John Juares PA-C. PROCEDURE: The patient was brought in the operating room and placed on the operating table in supine position. His abdomen was prepped and draped in usual fashion. Granado catheter and gastric tube were placed. Incision was made below the umbilicus, carrying dissection down into the abdomen encountering significant ascites from what we had suspected was small-bowel obstruction. I traced the bowel from the ileum proximally and found an area in the left upper quadrant with an omental band down over a loop of jejunum causing severe small-bowel obstruction and then once this was lysed there was also evidence of a small bowel adherent to the mesentery which was causing additional stenosis. These were all taken down, the bowel was completely viable. It was very well open with easy transit of material through the area of stenosis. At this point we irrigated the abdomen and then the posterior fascia and peritoneum were reapproximated using running #1 chromic catgut suture then the anterior fascia reapproximated using both running and interrupted #1 PDS suture. Subcutaneous tissue was irrigated and then partially reapproximated using 2-0 plain catgut suture then the skin reapproximated using sorin. The patient was transferred to recovery room in stable condition. I attest to the content of the Intraoperative Record and any orders documented therein. Any exceptio ns are noted below.
[2016-10-31] MEDS ORDERED: MoRPHine SULFATE 4 MG/ML 1 ML CARP\\VIAL ONE (08:53)
[2016-10-31] MEDS: HYDROmorphone HCL 0.5MG/ML 50 ML CASSETTE IV PRN ×4 (08:59→22:55)
--- NOTE | 2016-10-31 09:15 | Anesthesiology Progress Note ---
Anesthesia Post Op Note Date & Time Oct 31, 2016 at 09:16 Vital Signs Pain Intensity: 4 Vital Signs Past 12 Hours Date Time Temp Pulse Resp B/P Pulse Ox O2 Delivery O2 Flow Rate FiO2 10/31/16 09:10 76 16 111/79 95 Nasal Cannula 2 10/31/16 09:00 72 16 128/83 98 Nasal Cannula 2 10/31/16 08:50 74 16 125/88 98 Mask 10 10/31/16 08:40 70 16 138/90 98 Mask 10 10/31/16 08:30 72 16 147/94 99 Mask 10 10/31/16 08:29 36.8 70 16 150/96 99 Mask 10 10/31/16 06:32 36.2 71 20 138/86 92 Room Air 10/30/16 23:35 Room Air 10/30/16 23:27 36.9 81 16 146/82 96 Room Air Notes Mental Status: alert / awake / arousable, participated in evaluation Pt Amnestic to Procedure: Yes Nausea / Vomiting: adequately controlled Pain: adequately controlled, improving with treatment Airway Patency, RR, SpO2: stable & adequate BP & HR: stable & adequate Hydration State: stable & adequate Anesthetic Complications: no major complications apparent
[2016-10-31] MEDS: PANTOprazole INJ 40 MG in SYRINGE 0 ML IV SCH (10:30)
[2016-10-31 11:35] LABS: URINE APPEARANCE CLEAR (CLEAR); URINE BILIRUBIN NEG (NEG); URINE COLOR DK YELLOW; URINE EPITHELIAL CELL AUTO 20-30 /lpf (0-5); URINE NITRITE NEG (NEG); URINE SPECIFIC GRAVITY 1.045 (1.000-1.030); UROBILINOGEN NEG (NEG)
--- NOTE | 2016-10-31 11:36 | Progress Note ---
Internal Med Progress Note Date of Service: Oct 31, 2016. Provider Documentation: SUBJECTIVE: Patient was taken to OR today AM for SBO. Underwent Laparotomy with adhesiolysis and enterolysis. NG tube + Bit sedated due to anesthesia effect. OBJECTIVE: Vital Signs-as noted below Exam: General-Bit sedated, opens eyes on demand HEENT- NG tube + Neck-Supple, NO JVD Lungs-AEBE decreased, no wheezing, rales Heart-S1, S2 normal Abdomen-Dressing + S/P surgery Extremities-No edema Lab data as noted below. Diagnostic Radiology CT ABD/PELVIS IMPRESSION: 1. Interval development of a distal small bowel obstruction. There is a small amount of free pelvic fluid. There is no pneumatosis. There is no portal venous gas. 2. Hiatal hernia 3. No evidence of pathologic adenopathy 4. Tree-in-bud airspace opacities the lung bases. ASSESSMENT & PLAN: Assessment and Plan : SBO : S/P Laparotomy with adhesiolysis/Enterolysis today by Dr Piña, as persistent SOB with significant pain, no improvement post NG tube decompression -NG tube suctioning, NPO -IV Fluids -Work up- CT scan abd/pelvis- SBO, KUB X 2 - persistent SBO -Surgery on board. Appreciate inputs ALIS - Resolved - pre renal due to vomiting - IVF - Monitor HYPOPHOSPHATEMIA - due to GI loss from vomiting - replaced DVT PROPHYLAXIS - SCDs Post surgery DISPO - To be determined - Discussed with by bedside. Vital Signs: Date Time Temp Pulse Resp B/P Pulse Ox O2 Delivery O2 Flow Rate FiO2 10/31/16 11:00 Nasal Cannula 2.0 10/31/16 10:58 83 16 114/69 93 2.0 10/31/16 10:31 84 16 111/71 98 2.0 10/31/16 10:10 Nasal Cannula 2.0 10/31/16 10:00 36.7 85 16 116/72 94 Nasal Cannula 2.0 10/31/16 09:50 80 16 117/75 95 Nasal Cannula 2 10/31/16 09:40 74 16 127/80 95 Nasal Cannula 2 10/31/16 09:30 37.1 82 16 126/65 95 Nasal Cannula 2 10/31/16 09:20 37.1 82 16 131/81 95 Nasal Cannula 2 10/31/16 09:10 76 16 111/79 95 Nasal Cannula 2 10/31/16 09:00 72 16 128/83 98 Nasal Cannula 2 10/31/16 08:50 74 16 125/88 98 Mask 10 10/31/16 08:40 70 16 138/90 98 Mask 10 10/31/16 08:30 72 16 147/94 99 Mask 10 10/31/16 08:29 36.8 70 16 150/96 99 Mask 10 10/31/16 06:32 36.2 71 20 138/86 92 Room Air 10/30/16 23:35 Room Air 10/30/16 23:27 36.9 81 16 146/82 96 Room Air 10/30/16 19:30 Room Air 10/30/16 16:45 36.6 75 16 140/90 92 Room Air 10/30/16 16:32 83 16 137/88 95 Room Air 10/30/16 13:48 88 18 148/93 96 Room Air 10/30/16 12:15 93 16 135/89 95 Room Air 10/30/16 12:05 88 Lab Results: Results Past 24 Hours Test 10/30/16 15:55 10/31/16 05:50 10/31/16 10:40 Range/Units Lactic Acid Level 1.3 0.4-2.0 mmol/L White Blood Count 10.04 4.8-10.8 K/uL Red Blood Count 5.06 4.7-6.1 M/uL Hemoglobin 16.1 14.0-18.0 g/dL Hematocrit 46.2 42-52 % Mean Corpuscular Volume 91.3 80-100 fL Mean Corpuscular Hemoglobin 31.8 25-34 pg Mean Corpuscular Hemoglobin Concent 34.8 32-36 g/dl RDW Standard Deviation 43.9 36.4-46.3 fL RDW Coefficient of Variation 13.3 11.5-14.5 % Platelet Count 259 130-400 K/uL Mean Platelet Volume 11.0 7.4-10.4 fL Sodium Level 143 136-145 mmol/L Potassium Level 3.9 3.5-5.1 mmol/L Chloride Level 109 98-107 mmol/L Carbon Dioxide Level 26 21-32 mmol/L Anion Gap 8.0 3-11 mmol/L Blood Urea Nitrogen 24 7-18 mg/dl Creatinine 1.10 0.60-1.40 mg/dl Est Creatinine Clear Calc Drug Dose 82.3 ml/min Estimated GFR () 86.5 Estimated GFR (Non- 74.6 BUN/Creatinine Ratio 21.4 10-20 Random Glucose 114 70-99 mg/dl Calcium Level 8.4 8.5-10.1 mg/dl Phosphorus Level 3.2 2.5-4.9 mg/dl Magnesium Level 2.2 1.8-2.4 mg/dl Total Bilirubin 1.0 0.2-1 mg/dl Direct Bilirubin 0.3 0-0.2 mg/dl Aspartate Amino Transf (AST/SGOT) 11 15-37 U/L Alanine Aminotransferase (ALT/SGPT) 20 12-78 U/L Alkaline Phosphatase 74 45-117 U/L Total Protein 6.8 6.4-8.2 gm/dl Albumin 3.4 3.4-5.0 gm/dl Microbiology Results 10/31/16 Urine Culture, Received Pending
[2016-10-31 11:39] LABS: MANUAL MICROSCOPIC REQUIRED? NO; REVIEW REQ? NO
[2016-10-31] MEDS: NSS + 20MEQ KCL 1000ML 1,000 ML IV SCH ×3 (12:44→23:56)
--- NOTE | 2016-10-31 22:07 | DIAGNOSTIC IMAGING REPORT ---
ABDOMEN 2 VIEWS CLINICAL HISTORY: Small bowel obstruction status post laparotomy with lysis of adhesions on October 31, 2016. COMPARISON STUDY: CT of the abdomen and pelvis and KUB October 30, 2016. FINDINGS: There are cholecystectomy clips. The tip of the nasogastric tube projects over the proximal duodenum. Lucency under the hemidiaphragms may reflect pneumoperitoneum, an expected finding in early postoperative period. Moderate small bowel dilatation persists. IMPRESSION: 1. Persistent moderate small bowel dilatation, a nonspecific finding in the early postoperative period. 2. Possible pneumoperitoneum, an expected finding given recent laparotomy. 3. Tip of nasogastric tube projects of the proximal duodenum. Electronically signed by: Oliver Dai M.D. 10/31/2016 10:05 PM Dictated Date/Time: 10/31/2016 10:00 PM
[2016-10-31] MEDS ORDERED: HYDROmorphone INJ 2 MG/ML SYR/VIAL IV STA (22:08)
[2016-11-01] VITALS (7 sets, daily range): BP systolic 128–158; BP diastolic 76–90; PULSE 88–93; TEMP 36.4–37.1; O2SAT 92–96
[2016-11-01] MEDS: NSS + 20MEQ KCL 1000ML 1,000 ML IV SCH ×3 (06:39→19:52)
[2016-11-01] MEDS: HYDROmorphone HCL 0.5MG/ML 50 ML CASSETTE IV PRN ×3 (06:59→23:10)
--- NOTE | 2016-11-01 07:45 | Surgery Progress Note ---
Surgery Progress Note Date of Service Nov 01, 2016. Subjective Post OP Day: 1 + feeling well F/U S/P laparotomy, lysis of adhesion for SBO POD 1 pt is stable, good control the pain, no N/V, not pass gas yet. NG 500ml, Objective Vital Signs: Date Time Temp Pulse Resp B/P Pulse Ox O2 Delivery O2 Flow Rate FiO2 11/01/16 03:17 36.8 90 16 128/84 95 Nasal Cannula 2.0 10/31/16 23:45 Nasal Cannula 2.0 10/31/16 23:01 36.6 92 16 122/74 96 Nasal Cannula 2.0 10/31/16 21:56 94 Nasal Cannula 2.0 10/31/16 21:29 36.6 89 16 134/83 94 10/31/16 16:00 Nasal Cannula 2.0 10/31/16 15:10 77 16 121/74 95 Nasal Cannula 2.0 10/31/16 13:02 81 16 120/74 93 2.0 10/31/16 12:05 36.7 85 16 112/67 91 2.0 10/31/16 11:00 Nasal Cannula 2.0 10/31/16 10:58 83 16 114/69 93 2.0 10/31/16 10:31 84 16 111/71 98 2.0 10/31/16 10:10 Nasal Cannula 2.0 10/31/16 10:00 36.7 85 16 116/72 94 Nasal Cannula 2.0 10/31/16 09:50 80 16 117/75 95 Nasal Cannula 2 10/31/16 09:40 74 16 127/80 95 Nasal Cannula 2 10/31/16 09:30 37.1 82 16 126/65 95 Nasal Cannula 2 10/31/16 09:20 37.1 82 16 131/81 95 Nasal Cannula 2 10/31/16 09:10 76 16 111/79 95 Nasal Cannula 2 10/31/16 09:00 72 16 128/83 98 Nasal Cannula 2 10/31/16 08:50 74 16 125/88 98 Mask 10 10/31/16 08:40 70 16 138/90 98 Mask 10 10/31/16 08:30 72 16 147/94 99 Mask 10 10/31/16 08:29 36.8 70 16 150/96 99 Mask 10 General Appearance: WD/WN Head: normocephalic, atraumatic Neck: supple, no JVD Respiratory/Chest: chest non-tender, lungs clear Cardiovascular: regular rate, rhythm, no edema, no gallop, no JVD Abdomen: normal bowel sounds, non distended, soft, + tenderness Incision(s): clean, dry, intact Extremities: normal range of motion, non-tender, normal inspection Laboratory Results: Results Past 24 Hours Test 10/31/16 10:40 11/01/16 04:44 Range/Units Urine Color DK YELLOW Urine Appearance CLEAR CLEAR Urine pH 5.0 4.5-7.5 Urine Specific [place] 1.045 1.000-1.030 Urine Protein 1+ NEG Urine Glucose (UA) NEG NEG Urine Ketones TRACE NEG Urine Occult Blood TRACE NEG Urine Nitrite NEG NEG Urine Bilirubin NEG NEG Urine Urobilinogen NEG NEG Urine Leukocyte Esterase NEG NEG Urine WBC (Auto) 1-5 0-5 /hpf Urine RBC (Auto) 5-10 0-4 /hpf Urine Hyaline Casts (Auto) 5-10 0-5 /lpf Urine Epithelial Cells (Auto) 20-30 0-5 /lpf Urine Bacteria (Auto) NEG NEG Microbiology Results 10/31/16 Urine Culture, Received Pending Assessment & Plan IMP S/P laparotomy, lysis of adhesion for SBO POD 1 pt is stable continue treament OOB will F/U
[2016-11-01 08:15] LABS: BASO % 0.6 %; BASO ABS # 0.03 K/uL (0-0.2); COMPLETE YES; EOS % 0.6 %; HEMATOCRIT 41.2 % (42-52); IG% 0.2 %; LYMPH % 10.5 %; LYMPH ABS # 0.51 K/uL (1.2-3.4); MEAN CELL VOLUME 92.6 fL (80-100); MEAN CORPUSCULAR HEMOGLOBIN 31.2 pg (25-34); MEAN CORPUSCULAR HGB CONC 33.7 g/dl (32-36); MEAN PLATELET VOLUME 10.5 fL (7.4-10.4); MONO % 23.8 %; NEUT % 64.3 %; PLATELET COUNT 218 K/uL (130-400); RED BLOOD COUNT 4.45 M/uL (4.7-6.1); WHITE BLOOD COUNT 4.87 K/uL (4.8-10.8)
[2016-11-01] MEDS: SODIUM CHLORIDE 0.9% 1000ML 1,000 ML IV SCH (08:25)
[2016-11-01 08:35] LABS: BUN/CREATININE RATIO 16.7 (10-20); CALCIUM 8.2 mg/dl (8.5-10.1); CREATININE 1.1 mg/dl (0.60-1.40); POTASSIUM 4.1 mmol/L (3.5-5.1)
--- NOTE | 2016-11-01 10:58 | Progress Note ---
Internal Med Progress Note Date of Service: Nov 01, 2016. Provider Documentation: SUBJECTIVE: Patient is status post Laparotomy with adhesiolysis and enterolysis. Awake, oriented x 3, mild distress as a bit SOB after having a good walk in hallway. NG tube + Pain is under control, no fever, chills, chest pain, cough. OBJECTIVE: Vital Signs-as noted below Exam: General-AAOX3, no distress HEENT- NG tube + continuous suction Neck-Supple, NO JVD Lungs-AEBE decreased, no wheezing, rales Heart-S1, S2 normal Abdomen-Dressing + S/P surgery, No BS Extremities-No edema Lab data as noted below. Diagnostic Radiology CT ABD/PELVIS IMPRESSION: 1. Interval development of a distal small bowel obstruction. There is a small amount of free pelvic fluid. There is no pneumatosis. There is no portal venous gas. 2. Hiatal hernia 3. No evidence of pathologic adenopathy 4. Tree-in-bud airspace opacities the lung bases. ASSESSMENT & PLAN: Assessment and Plan : SBO : S/P Laparotomy with adhesiolysis/Enterolysis on 10/31/[address] Piña, as persistent SOB with significant pain, no improvement post NG tube decompression. -NG tube suctioning, NPO -IV Fluids, Pain management- per surgery -Work up- CT scan abd/pelvis- SBO, KUB X 2 - persistent SBO -Surgery on board. Appreciate inputs ALIS - Resolved - pre renal due to vomiting - IVF - Monitor HYPOPHOSPHATEMIA- Resolved - due to GI loss from vomiting - replaced DVT PROPHYLAXIS - SCDs Post surgery DISPO - Expected discharge home once stable. - Discussed with by bedside. Vital Signs: Date Time Temp Pulse Resp B/P Pulse Ox O2 Delivery O2 Flow Rate FiO2 11/01/16 09:22 93 Room Air 11/01/16 07:40 36.4 88 14 138/90 93 Room Air 11/01/16 03:17 36.8 90 16 128/84 95 Nasal Cannula 2.0 10/31/16 23:45 Nasal Cannula 2.0 10/31/16 23:01 36.6 92 16 122/74 96 Nasal Cannula 2.0 10/31/16 21:56 94 Nasal Cannula 2.0 10/31/16 21:29 36.6 89 16 134/83 94 10/31/16 16:00 Nasal Cannula 2.0 10/31/16 15:10 77 16 121/74 95 Nasal Cannula 2.0 10/31/16 13:02 81 16 120/74 93 2.0 10/31/16 12:05 36.7 85 16 112/67 91 2.0 10/31/16 11:00 Nasal Cannula 2.0 10/31/16 10:58 83 16 114/69 93 2.0 Lab Results: Results Past 24 Hours Test 11/01/16 07:47 Range/Units White Blood Count 4.87 4.8-10.8 K/uL Red Blood Count 4.45 4.7-6.1 M/uL Hemoglobin 13.9 14.0-18.0 g/dL Hematocrit 41.2 42-52 % Mean Corpuscular Volume 92.6 80-100 fL Mean Corpuscular Hemoglobin 31.2 25-34 pg Mean Corpuscular Hemoglobin Concent 33.7 32-36 g/dl Platelet Count 218 130-400 K/uL Mean Platelet Volume 10.5 7.4-10.4 fL Neutrophils (%) (Auto) 64.3 % Lymphocytes (%) (Auto) 10.5 % Monocytes (%) (Auto) 23.8 % Eosinophils (%) (Auto) 0.6 % Basophils (%) (Auto) 0.6 % Neutrophils # (Auto) 3.13 1.4-6.5 K/uL Lymphocytes # (Auto) 0.51 1.2-3.4 K/uL Monocytes # (Auto) 1.16 0.11-0.59 K/uL Eosinophils # (Auto) 0.03 0-0.5 K/uL Basophils # (Auto) 0.03 0-0.2 K/uL RDW Standard Deviation 45.3 36.4-46.3 fL RDW Coefficient of Variation 13.4 11.5-14.5 % Immature Granulocyte % (Auto) 0.2 % Immature Granulocyte # (Auto) 0.01 0.00-0.02 K/uL Sodium Level 145 136-145 mmol/L Potassium Level 4.1 3.5-5.1 mmol/L Chloride Level 110 98-107 mmol/L Carbon Dioxide Level 28 21-32 mmol/L Anion Gap 7.0 3-11 mmol/L Blood Urea Nitrogen 18 7-18 mg/dl Creatinine 1.10 0.60-1.40 mg/dl Est Creatinine Clear Calc Drug Dose 81.3 ml/min Estimated GFR () 85.9 Estimated GFR (Non- 74.1 BUN/Creatinine Ratio 16.7 10-20 Random Glucose 112 70-99 mg/dl Calcium Level 8.2 8.5-10.1 mg/dl
[2016-11-01] MEDS: PANTOprazole INJ 40 MG in SYRINGE 0 ML IV SCH (11:00)
[2016-11-02] MEDS: NSS + 20MEQ KCL 1000ML 1,000 ML IV SCH ×2 (02:23→08:54)
[2016-11-02] MEDS: HYDROmorphone HCL 0.5MG/ML 50 ML CASSETTE IV PRN ×3 (06:54→23:09)
[2016-11-02 07:09] VITALS: BP 145/80; PULSE 84; TEMP 36.8; O2SAT 94
[2016-11-02] MEDS: SODIUM CHLORIDE 0.9% 1000ML 1,000 ML IV SCH (08:25)
--- NOTE | 2016-11-02 09:41 | Surgery Progress Note ---
Surgery Progress Note Date of Service Nov 02, 2016. Subjective Post OP Day: 2 + feeling well pt is doing better, no N/V, NGT 100ml. not pass gas yet. Objective Vital Signs: Date Time Temp Pulse Resp B/P Pulse Ox O2 Delivery O2 Flow Rate FiO2 11/02/16 08:17 Room Air 11/02/16 07:09 36.8 84 20 145/80 94 Room Air 11/01/16 23:45 Room Air 11/01/16 23:09 36.7 93 16 158/83 96 Room Air 11/01/16 20:12 37.1 89 16 133/76 93 Room Air 11/01/16 19:10 Room Air 11/01/16 15:30 36.8 90 14 150/90 93 Room Air 11/01/16 12:00 36.9 91 16 142/80 92 Room Air General Appearance: WD/WN Head: normocephalic Neck: supple Respiratory/Chest: chest non-tender, lungs clear Cardiovascular: regular rate, rhythm, no edema, no JVD Abdomen: normal bowel sounds, non tender, non distended, soft Incision(s): clean, dry, intact Extremities: normal range of motion, non-tender, normal inspection Assessment & Plan IMP S/P laparotomy, lysis of adhesion for SBO POD 2 change IV fluid to D5+ 1/2 NS + 20 MEQ KCL/1000ml iv at 100 ml/h pt is stable continue treament OOB will F/U IMP S/P laparotomy, lysis of adhesion for SBO POD 1 pt is stable continue treament OOB will F/U
[2016-11-02] MEDS: PANTOprazole INJ 40 MG in SYRINGE 0 ML IV SCH (11:21)
[2016-11-02] MEDS: D5W AND 1/2NSS + 20MEQ KCL 1,000 ML IV SCH ×2 (11:38→19:43)
[2016-11-02 11:41] VITALS: BP 127/72; PULSE 75; TEMP 36.9; O2SAT 94
--- NOTE | 2016-11-02 12:58 | Progress Note ---
Internal Med Progress Note Date of Service: Nov 02, 2016. Provider Documentation: SUBJECTIVE: Patient is status post Laparotomy with adhesiolysis and enterolysis. Awake, oriented x 3. NG tube + Pain is under control, no fever, chills, chest pain, cough. OBJECTIVE: Vital Signs-as noted below Exam: General-AAOX3, no distress HEENT- NG tube + Neck-Supple, NO JVD Lungs-AEBE decreased, no wheezing, rales Heart-S1, S2 normal Abdomen-Dressing + S/P surgery, sluggish BS Extremities-No edema Lab data as noted below. Diagnostic Radiology CT ABD/PELVIS IMPRESSION: 1. Interval development of a distal small bowel obstruction. There is a small amount of free pelvic fluid. There is no pneumatosis. There is no portal venous gas. 2. Hiatal hernia 3. No evidence of pathologic adenopathy 4. Tree-in-bud airspace opacities the lung bases. ASSESSMENT & PLAN: Assessment and Plan : SBO : S/P Laparotomy with adhesiolysis/Enterolysis on 10/31/[address] Piña, as persistent SOB with significant pain, no improvement post NG tube decompression. -NG tube , NPO -IV Fluids, Pain management- per surgery -Work up- CT scan abd/pelvis- SBO, KUB X 2 - persistent SBO -Surgery on board. Appreciate inputs ALIS - Resolved - pre renal due to vomiting - IVF - Monitor HYPOPHOSPHATEMIA- Resolved - due to GI loss from vomiting - replaced DVT PROPHYLAXIS - SCDs Post surgery DISPO - Expected discharge home once stable. - Discussed with by bedside. Vital Signs: Date Time Temp Pulse Resp B/P Pulse Ox O2 Delivery O2 Flow Rate FiO2 11/02/16 11:41 36.9 75 18 127/72 94 Room Air 11/02/16 08:17 Room Air 11/02/16 07:09 36.8 84 20 145/80 94 Room Air 11/01/16 23:45 Room Air 11/01/16 23:09 36.7 93 16 158/83 96 Room Air 11/01/16 20:12 37.1 89 16 133/76 93 Room Air 11/01/16 19:10 Room Air 11/01/16 15:30 36.8 90 14 150/90 93 Room Air
[2016-11-02 15:18] VITALS: BP 149/85; PULSE 80; TEMP 37; O2SAT 96
[2016-11-02 15:50] VITALS: O2SAT 96
[2016-11-02 19:23] VITALS: BP 143/88; PULSE 80; TEMP 36.5; O2SAT 95
[2016-11-02 23:03] VITALS: BP 153/90; PULSE 79; TEMP 36.8; O2SAT 98
[2016-11-03] VITALS (8 sets, daily range): BP systolic 133–147; BP diastolic 81–93; PULSE 68–82; TEMP 36.6–37.4; O2SAT 94–97
[2016-11-03] MEDS ORDERED: ACETAMINOPHEN IV 650 MG in EMPTY BAG 0 ML IV PRN (01:00)
[2016-11-03] MEDS: D5W AND 1/2NSS + 20MEQ KCL 1,000 ML IV SCH (05:19)
[2016-11-03] MEDS: CHLORASEPTIC 1.4% SOLN 180 ML BTL MT PRN (06:27)
[2016-11-03] MEDS ORDERED: DEXTROSE 10% 1,000 ML IV PRN (06:34)
--- NOTE | 2016-11-03 06:40 | Surgery Progress Note ---
Surgery Progress Note Date of Service Nov 03, 2016. Subjective Post OP Day: 3 No bowel movement, No flatus, No nausea, No vomiting has NG in place- normal bilious output- good ur output Objective Vital Signs: Date Time Temp Pulse Resp B/P Pulse Ox O2 Delivery O2 Flow Rate FiO2 11/03/16 03:55 36.7 76 16 143/81 95 Room Air 11/03/16 00:10 Room Air 11/02/16 23:03 36.8 79 16 153/90 98 Room Air 11/02/16 19:23 36.5 80 16 143/88 95 Room Air 11/02/16 15:50 96 Room Air 11/02/16 15:18 37.0 80 16 149/85 96 Room Air 11/02/16 11:41 36.9 75 18 127/72 94 Room Air 11/02/16 08:17 Room Air 11/02/16 07:09 36.8 84 20 145/80 94 Room Air General Appearance: no apparent distress Respiratory/Chest: no respiratory distress Abdomen: + distended (decreased bowel sounds) Laboratory Results: Results Past 24 Hours Test 11/03/16 04:44 Range/Units Assessment & Plan 11/03/16- s/p laparotomy w/ lysis of adhesions- ileus persists- will add reglan and order ppn- may need picc line depending on progress- leave NG for now- check Mg/ phos 10/31/16- I do not think he has improved much- I am concerned about his pain Will proceed to OR this am- laparotomy, lysis of adhesions possible bowel resection- discussed with pt and called - they agree 10/31/16- I do not think he has improved much- I am concerned about his pain Will proceed to OR this am- laparotomy, lysis of adhesions possible bowel resection- discussed with pt and called - they agree
[2016-11-03] MEDS ORDERED: CUSTOM PERIPHERAL PN 1 BAG IV SCH ×2 (06:45→16:00)
[2016-11-03] MEDS ORDERED: TPN/PPN CONSULT PHARMACY PRN (06:45)
[2016-11-03] MEDS: HYDROmorphone HCL 0.5MG/ML 50 ML CASSETTE IV PRN ×3 (07:07→22:54)
[2016-11-03 07:28] LABS: HEMATOCRIT 37.4 % (42-52); MEAN CELL VOLUME 89.7 fL (80-100); MEAN CORPUSCULAR HEMOGLOBIN 32.1 pg (25-34); MEAN CORPUSCULAR HGB CONC 35.8 g/dl (32-36); MEAN PLATELET VOLUME 10.7 fL (7.4-10.4); PLATELET COUNT 225 K/uL (130-400); RED BLOOD COUNT 4.17 M/uL (4.7-6.1); WHITE BLOOD COUNT 6.89 K/uL (4.8-10.8)
[2016-11-03 07:37] LABS: PARTIAL THROMBOPLASTIN RATIO 1.1; PROTHROMBIN TIME (PATIENT) 10.2 SECONDS (9.0-12.0)
[2016-11-03 07:48] LABS: CREATININE 0.86 mg/dl (0.60-1.40)
[2016-11-03 07:49] LABS: BUN/CREATININE RATIO 11.2 (10-20); CALCIUM 8.2 mg/dl (8.5-10.1); POTASSIUM 3.4 mmol/L (3.5-5.1)
[2016-11-03 07:52] LABS: MAGNESIUM 2.2 mg/dl (1.8-2.4); PHOSPHORUS 2.1 mg/dl (2.5-4.9)
--- NOTE | 2016-11-03 07:59 | Anesthesiology Progress Note ---
Anesthesia Post Op Note Date & Time Nov 03, 2016 at 07:58 Vital Signs Pain Intensity: 0.0 Vital Signs Past 12 Hours Date Time Temp Pulse Resp B/P Pulse Ox O2 Delivery O2 Flow Rate FiO2 11/03/16 07:49 Room Air 11/03/16 03:55 36.7 76 16 143/81 95 Room Air 11/03/16 00:10 Room Air 11/02/16 23:03 36.8 79 16 153/90 98 Room Air Notes Mental Status: alert / awake / arousable, participated in evaluation Pt Amnestic to Procedure: Yes Nausea / Vomiting: adequately controlled Pain: adequately controlled Airway Patency, RR, SpO2: stable & adequate BP & HR: stable & adequate Hydration State: stable & adequate Anesthetic Complications: no major complications apparent
[2016-11-03] MEDS: SODIUM CHLORIDE 0.9% 1000ML 1,000 ML IV SCH ×2 (09:09→16:04)
[2016-11-03] MEDS ORDERED: POTASSIUM PHOS 3 MMOL/1 ML INFUSION IV STA (09:22)
[2016-11-03] MEDS ORDERED: POTASSIUM PHOSPHATE INJ 15 MMOL in SODIUM CHLORIDE 0.9% 250ML 250 ML IV ONE (10:00)
[2016-11-03] MEDS: ENOXAPARIN 40 MG/0.4 ML SYR SQ SCH (10:06)
[2016-11-03] MEDS: METOCLOPRAMIDE HCL INJ 5 MG/ML 2 ML VIAL IV SCH ×3 (10:07→22:26)
[2016-11-03] MEDS: PANTOprazole INJ 40 MG in SYRINGE 0 ML IV SCH (10:07)
--- NOTE | 2016-11-03 11:38 | Progress Note ---
Internal Med Progress Note Date of Service: Nov 03, 2016. Provider Documentation: SUBJECTIVE: Patient is status post Laparotomy with adhesiolysis and enterolysis. Awake, oriented x 3. NG tube + No flatus, BM, nausea, vomiting. Pain is under control, no fever, chills, chest pain, cough. OBJECTIVE: Vital Signs-as noted below Exam: General-AAOX3, no distress HEENT- NG tube + Neck-Supple, NO JVD Lungs-AEBE decreased, no wheezing, rales Heart-S1, S2 normal Abdomen-Dressing + S/P surgery, Abd distension + Extremities-No edema Lab data as noted below. Diagnostic Radiology CT ABD/PELVIS IMPRESSION: 1. Interval development of a distal small bowel obstruction. There is a small amount of free pelvic fluid. There is no pneumatosis. There is no portal venous gas. 2. Hiatal hernia 3. No evidence of pathologic adenopathy 4. Tree-in-bud airspace opacities the lung bases. ASSESSMENT & PLAN: Assessment and Plan : SBO : S/P Laparotomy with adhesiolysis/Enterolysis on 10/31/[address] Piña, as persistent SOB with significant pain, no improvement post NG tube decompression. -NG tube , NPO as no flatus, BM yet -IV Fluids, Pain management- per surgery. Started on IV Reglan scheduled per Dr Piña -IV PPN started today per Surgery -Work up- CT scan abd/pelvis- SBO, KUB X 2 - persistent SBO -Surgery on board. Appreciate inputs HYPOPHOSPHATEMIA/HYPOKALEMIA- - replaced - Monitor ALIS - Resolved - pre renal due to vomiting - IVF - Monitor DVT PROPHYLAXIS - SCDs Post surgery DISPO - Expected discharge home once stable and per surgery. Medical mx in progress - Discussed with by bedside. Vital Signs: Date Time Temp Pulse Resp B/P Pulse Ox O2 Delivery O2 Flow Rate FiO2 11/03/16 11:20 36.6 72 17 144/89 96 Room Air 11/03/16 10:44 96 11/03/16 08:17 36.6 68 19 135/82 96 Room Air 11/03/16 07:49 Room Air 11/03/16 03:55 36.7 76 16 143/81 95 Room Air 11/03/16 00:10 Room Air 11/02/16 23:03 36.8 79 16 153/90 98 Room Air 11/02/16 19:23 36.5 80 16 143/88 95 Room Air 11/02/16 15:50 96 Room Air 11/02/16 15:18 37.0 80 16 149/85 96 Room Air 11/02/16 11:41 36.9 75 18 127/72 94 Room Air Lab Results: Results Past 24 Hours Test 11/03/16 06:27 11/03/16 07:14 Range/Units White Blood Count 6.89 4.8-10.8 K/uL Red Blood Count 4.17 4.7-6.1 M/uL Hemoglobin 13.4 14.0-18.0 g/dL Hematocrit 37.4 42-52 % Mean Corpuscular Volume 89.7 80-100 fL Mean Corpuscular Hemoglobin 32.1 25-34 pg Mean Corpuscular Hemoglobin Concent 35.8 32-36 g/dl RDW Standard Deviation 41.9 36.4-46.3 fL RDW Coefficient of Variation 12.9 11.5-14.5 % Platelet Count 225 130-400 K/uL Mean Platelet Volume 10.7 7.4-10.4 fL Sodium Level 141 136-145 mmol/L Potassium Level 3.4 3.5-5.1 mmol/L Chloride Level 106 98-107 mmol/L Carbon Dioxide Level 27 21-32 mmol/L Anion Gap 8.0 3-11 mmol/L Blood Urea Nitrogen 10 7-18 mg/dl Creatinine 0.86 0.60-1.40 mg/dl Est Creatinine Clear Calc Drug Dose 104.0 ml/min Estimated GFR () 111.6 Estimated GFR (Non- 96.3 BUN/Creatinine Ratio 11.2 10-20 Random Glucose 104 70-99 mg/dl Calcium Level 8.2 8.5-10.1 mg/dl Prothrombin Time 10.2 9.0-12.0 SECONDS Prothromb Time International Ratio 1.0 0.9-1.1 Activated Partial Thromboplast Time 29.1 21.0-31.0 SECONDS Partial Thromboplastin Ratio 1.1 Phosphorus Level 2.1 2.5-4.9 mg/dl Magnesium Level 2.2 1.8-2.4 mg/dl
[2016-11-04] VITALS (7 sets, daily range): BP systolic 108–148; BP diastolic 54–92; PULSE 68–79; TEMP 36.3–37.3; O2SAT 92–97
[2016-11-04] MEDS: METOCLOPRAMIDE HCL INJ 5 MG/ML 2 ML VIAL IV SCH ×3 (04:14→15:44)
--- NOTE | 2016-11-04 06:40 | Surgery Progress Note ---
Surgery Progress Note Date of Service Nov 04, 2016. Subjective Post OP Day: 4 + flatus, No bowel movement, No nausea, No vomiting minimal output from NG- passed some flatus Objective Vital Signs: Date Time Temp Pulse Resp B/P Pulse Ox O2 Delivery O2 Flow Rate FiO2 11/04/16 03:09 37.3 74 18 148/91 97 Room Air 11/04/16 00:00 Room Air 11/03/16 23:08 37.2 78 14 147/89 94 Room Air 11/03/16 21:05 94 Room Air 11/03/16 19:07 37.4 76 18 143/93 94 Room Air 11/03/16 14:59 37.1 82 16 133/83 97 Room Air 11/03/16 11:20 36.6 72 17 144/89 96 Room Air 11/03/16 10:44 96 11/03/16 08:17 36.6 68 19 135/82 96 Room Air 11/03/16 07:49 Room Air General Appearance: + mild distress (NG bothering him) Respiratory/Chest: no respiratory distress (mild abd distention, positive bowel sounds) Laboratory Results: Results Past 24 Hours Test 11/03/16 07:14 11/04/16 00:02 11/04/16 04:44 11/04/16 06:12 Range/Units Prothrombin Time 10.2 9.0-12.0 SECONDS Prothromb Time International Ratio 1.0 0.9-1.1 Activated Partial Thromboplast Time 29.1 21.0-31.0 SECONDS Partial Thromboplastin Ratio 1.1 Phosphorus Level 2.1 2.5-4.9 mg/dl Magnesium Level 2.2 1.8-2.4 mg/dl Bedside Glucose 102 97 70-99 mg/dl Assessment & Plan 11/04/16- will d/c NG and cont ice only for now- cont reglan and add senna syrup. cont ppn, ambulate as tolerated 11/03/16- s/p laparotomy w/ lysis of adhesions- ileus persists- will add reglan and order ppn- may need picc line depending on progress- leave NG for now- check Mg/ phos 10/31/16- I do not think he has improved much- I am concerned about his pain Will proceed to OR this am- laparotomy, lysis of adhesions possible bowel resection- discussed with pt and called - they agree 11/03/16- s/p laparotomy w/ lysis of adhesions- ileus persists- will add reglan and order ppn- may need picc line depending on progress- leave NG for now- check Mg/ phos 10/31/16- I do not think he has improved much- I am concerned about his pain Will proceed to OR this am- laparotomy, lysis of adhesions possible bowel resection- discussed with pt and called - they agree
[2016-11-04] MEDS: HYDROmorphone HCL 0.5MG/ML 50 ML CASSETTE IV PRN ×3 (06:53→23:18)
[2016-11-04 08:15] LABS: BUN/CREATININE RATIO 10.7 (10-20); CALCIUM 8.8 mg/dl (8.5-10.1); CREATININE 0.87 mg/dl (0.60-1.40); MAGNESIUM 2.4 mg/dl (1.8-2.4); POTASSIUM 3.4 mmol/L (3.5-5.1)
[2016-11-04 08:16] LABS: PHOSPHORUS 3.3 mg/dl (2.5-4.9)
[2016-11-04] MEDS: ENOXAPARIN 40 MG/0.4 ML SYR SQ SCH (09:34)
[2016-11-04] MEDS: SENNA 8.8 MG/5 ML UDP PO SCH ×2 (09:34→20:52)
[2016-11-04] MEDS: PANTOprazole INJ 40 MG in SYRINGE 0 ML IV SCH (11:26)
--- NOTE | 2016-11-04 12:14 | Pharmacy Progress Note ---
Parenteral Nutrition Consult Date of Service Nov 04, 2016. Scope Pharmacy was consulted on 11/03/16 to manage parenteral nutrition orders for this patient. Subjective The patient is currently on day # 2 of peripheral parenteral nutrition for SBO 2 /2 adhesions from previous abdominal procedures (expected prolonged NPO status). Objective Height (Feet): 6 Height (Inches): 0.00 Weight (Kilograms): 95.000 Diet: NPO Vascular Access: Peripheral Intake & Output (Last 72 Hr): 11/02/16 11/03/16 11/04/16 07:59 07:59 07:59 Intake Total 3514 ml 2899 ml 2437 ml Output Total 1300 ml 3245 ml 3280 ml Balance 2214 ml -346 ml -843 ml Additional Fluid Losses/Gains: 385mL GI suction yesterday Laboratory Data (Last 24 Hr): Test 11/04/16 07:18 Blood Urea Nitrogen 9 mg/dl (7-18) Calcium Level 8.8 mg/dl (8.5-10.1) Carbon Dioxide Level 27 mmol/L (21-32) Chloride Level 105 mmol/L (98-107) Creatinine 0.87 mg/dl (0.60-1.40) Magnesium Level 2.4 mg/dl (1.8-2.4) Phosphorus Level 3.3 mg/dl (2.5-4.9) Potassium Level 3.4 mmol/L (3.5-5.1) Random Glucose 94 mg/dl (70-99) Sodium Level 141 mmol/L (136-145) Triglycerides Level 70 mg/dl (0-150) Recent Pertinent Medications: Protonix 40mg IV daily Nutrition Assessment Please refer to the Notes section of the EMR for the most recent resident programs assistant note. Plan For day # 2 of PN administration, the following will be ordered: Macronutrients -- limited d/t osmolarity restrictions with peripheral access Amino acids 60 grams/day Dextrose 60 grams/day Lipids 30 grams/day Micronutrients Combined electrolytes 20 mL - contains 35 mEq Na, 20 meq K, 4.5 mEq Ca, 5 mEq Mg , 35 mEq Cl, 29.5 mEq acetate per 20 mL Potassium phosphate 30 mMol Potassium chloride 60 mEq Multivitamins 10 mL Trace Elements 1 mL Additional additives: Folic Acid 1 mg Thiamine 100 mg Total volume 2000 mL to be infused over 24 hrs will provide 744 kcal/day Final osmolarity 591 mOsm/L (maximum for PPN is 600 mOsm/L) Labs, as indicated, will be ordered per protocol Pharmacy will continue to follow and adjust parenteral nutrition orders on a daily basis. Thank you for allowing us to participate in the care of this patient.
--- NOTE | 2016-11-04 14:48 | Progress Note ---
Progress Note passing flatus, small BMs, no nausea after NG removed this AM will start on clears, cont PPN
[2016-11-04] MEDS ORDERED: CUSTOM PERIPHERAL PN 1 BAG IV SCH (16:00)
--- NOTE | 2016-11-04 16:33 | Progress Note ---
Internal Med Progress Note Date of Service: Nov 04, 2016. Provider Documentation: SUBJECTIVE: Seen and examined at bedside. Had 2 small BMs today. NG tube discontinued. Tolerating liquid diet. Denies and nausea, abd pain, chest pain, SOB. OBJECTIVE: Vital Signs-as noted below Physical Exam: General Appearance:Moderately built and nourished, no apparent distress Head: normocephalic, Atraumatic Eyes: normal inspection, EOMI, PERRLA Neck: supple, no JVD, Trachea midline Respiratory/Chest: Normal breath sounds, CTA, No accessory muscle use Cardiovascular: S1, S2, No murmur Abdomen/GI:Soft, Non tender, Bowel sounds diminished, Surgical site in bandage Extremities/Musculoskelatal:normal inspection, no edema Neurologic/Psych:AAOX3, grossly no focal neurological deficits Skin: normal color, warm Lab data as noted below. ASSESSMENT & PLAN: SBO : S/P Laparotomy with adhesiolysis/Enterolysis on 10/31/[address] Piña Improving, 2 small BMs today NG tube discontinued Tolerating liquid diet IV Fluids, Pain management- per surgery Continue IV Reglan- started by Dr Piña Continue IV PPN On PPI, Senna Surgery on board Ambulate as tolerated HYPOPHOSPHATEMIA/HYPOKALEMIA replace and monitor ALIS - Resolved pre renal due to vomiting IVF Monitor DVT PROPHYLAXIS SCDs Post surgery DISPO Plan to DC home once stable and cleared by surgery Vital Signs: Date Time Temp Pulse Resp B/P Pulse Ox O2 Delivery O2 Flow Rate FiO2 11/04/16 15:10 36.8 72 18 142/92 97 Room Air 11/04/16 11:14 36.7 68 16 136/90 96 Room Air 11/04/16 07:39 Room Air 11/04/16 07:14 36.3 75 20 135/85 97 Room Air 11/04/16 03:09 37.3 74 18 148/91 97 Room Air 11/04/16 00:00 Room Air 11/03/16 23:08 37.2 78 14 147/89 94 Room Air 11/03/16 21:05 94 Room Air 11/03/16 19:07 37.4 76 18 143/93 94 Room Air Lab Results: Results Past 24 Hours Test 11/04/16 00:02 11/04/16 06:12 11/04/16 07:11/04/16 12:03 Range/Units Bedside Glucose 102 97 92 70-99 mg/dl Sodium Level 141 136-145 mmol/L Potassium Level 3.4 3.5-5.1 mmol/L Chloride Level 105 98-107 mmol/L Carbon Dioxide Level 27 21-32 mmol/L Anion Gap 9.0 3-11 mmol/L Blood Urea Nitrogen 9 7-18 mg/dl Creatinine 0.87 0.60-1.40 mg/dl Est Creatinine Clear Calc Drug Dose 112.0 ml/min Estimated GFR () 111.0 Estimated GFR (Non- 95.8 BUN/Creatinine Ratio 10.7 10-20 Random Glucose 94 70-99 mg/dl Calcium Level 8.8 8.5-10.1 mg/dl Phosphorus Level 3.3 2.5-4.9 mg/dl Magnesium Level 2.4 1.8-2.4 mg/dl Triglycerides Level 70 0-150 mg/dl
[2016-11-04] MEDS ORDERED: POTASSIUM CHLORIDE 20 MEQ/15 ML UDC PO ONE (17:45)
[2016-11-04] MEDS: METOCLOPRAMIDE HCL INJ 5 MG/ML 2 ML VIAL IV. SCH (22:31)
[2016-11-05 03:11] VITALS: BP 127/85; PULSE 71; TEMP 36.8; O2SAT 94
[2016-11-05] MEDS: METOCLOPRAMIDE HCL INJ 5 MG/ML 2 ML VIAL IV. SCH ×4 (04:02→21:01)
[2016-11-05] MEDS ORDERED: HYDROmorphone INJ 1 MG/ML SYR IV PRN (06:15)
[2016-11-05] MEDS ORDERED: HYDROCODONE/ACETAMOPHEN 5/325MG TAB PO PRN ×2 (06:15)
[2016-11-05] MEDS ORDERED: HYDROmorphone INJ 0.5 MG/0.5 ML SYR IV PRN (06:15)
--- NOTE | 2016-11-05 06:25 | Surgery Progress Note ---
Surgery Progress Note Date of Service Nov 05, 2016. Subjective Post OP Day: 5 + bowel movement, + flatus, No nausea, No vomiting tolerating clear liquids Objective Vital Signs: Date Time Temp Pulse Resp B/P Pulse Ox O2 Delivery O2 Flow Rate FiO2 11/05/16 03:11 36.8 71 14 127/85 94 Room Air 11/04/16 23:30 Room Air 11/04/16 23:21 36.7 73 16 129/82 94 Room Air 11/04/16 22:00 Room Air 11/04/16 20:03 36.7 79 18 138/84 92 Room Air 11/04/16 15:10 36.8 72 18 142/92 97 Room Air 11/04/16 11:14 36.7 68 16 136/90 96 Room Air 11/04/16 07:39 Room Air 11/04/16 07:14 36.3 75 20 135/85 97 Room Air General Appearance: no apparent distress Respiratory/Chest: no respiratory distress Abdomen: + distended (mild) Incision(s): intact Laboratory Results: Results Past 24 Hours Test 11/04/16 07:18 11/04/16 12:03 11/05/16 00:02 11/05/16 04:44 Range/Units Sodium Level 141 136-145 mmol/L Potassium Level 3.4 3.5-5.1 mmol/L Chloride Level 105 98-107 mmol/L Carbon Dioxide Level 27 21-32 mmol/L Anion Gap 9.0 3-11 mmol/L Blood Urea Nitrogen 9 7-18 mg/dl Creatinine 0.87 0.60-1.40 mg/dl Est Creatinine Clear Calc Drug Dose 112.0 ml/min Estimated GFR () 111.0 Estimated GFR (Non- 95.8 BUN/Creatinine Ratio 10.7 10-20 Random Glucose 94 70-99 mg/dl Calcium Level 8.8 8.5-10.1 mg/dl Phosphorus Level 3.3 2.5-4.9 mg/dl Magnesium Level 2.4 1.8-2.4 mg/dl Triglycerides Level 70 0-150 mg/dl Bedside Glucose 92 91 70-99 mg/dl Test 11/05/16 06:03 Range/Units Bedside Glucose 93 70-99 mg/dl Assessment & Plan 11/05/16- adv to full liquids, cont ppn, if cont to progress would consider d/c tomorrow, stop workforce management manager- add po pain med 11/04/16- will d/c NG and cont ice only for now- cont reglan and add senna syrup. cont ppn, ambulate as tolerated 11/03/16- s/p laparotomy w/ lysis of adhesions- ileus persists- will add reglan and order ppn- may need picc line depending on progress- leave NG for now- check Mg/ phos 10/31/16- I do not think he has improved much- I am concerned about his pain Will proceed to OR this am- laparotomy, lysis of adhesions possible bowel resection- discussed with pt and called - they agree 11/04/16- will d/c NG and cont ice only for now- cont reglan and add senna syrup. cont ppn, ambulate as tolerated 11/03/16- s/p laparotomy w/ lysis of adhesions- ileus persists- will add reglan and order ppn- may need picc line depending on progress- leave NG for now- check Mg/ phos 10/31/16- I do not think he has improved much- I am concerned about his pain Will proceed to OR this am- laparotomy, lysis of adhesions possible bowel resection- discussed with pt and called - they agree
[2016-11-05] MEDS: SODIUM CHLORIDE 0.9% 1000ML 1,000 ML IV SCH (07:16)
[2016-11-05 07:30] VITALS: BP 136/84; PULSE 70; TEMP 36.6; O2SAT 95
[2016-11-05 08:43] LABS: BUN/CREATININE RATIO 12.6 (10-20); CREATININE 0.93 mg/dl (0.60-1.40); MAGNESIUM 2.4 mg/dl (1.8-2.4); PHOSPHORUS 3.4 mg/dl (2.5-4.9); POTASSIUM 4.1 mmol/L (3.5-5.1)
[2016-11-05 08:55] VITALS: O2SAT 95
[2016-11-05] MEDS: SENNA 8.8 MG/5 ML UDP PO SCH ×2 (09:39→21:00)
[2016-11-05] MEDS: ENOXAPARIN 40 MG/0.4 ML SYR SQ SCH (09:40)
[2016-11-05] MEDS: PANTOprazole INJ 40 MG in SYRINGE 0 ML IV SCH (09:41)
--- NOTE | 2016-11-05 12:02 | Discharge Instructions ---
Discharge Instructions Admission Reason for Admission: Sbo (Small Bowel Obstruction) Discharge Discharge Diagnosis / Problem: small bowel obstruction from adhesions Discharge Goals Goal(s): Decrease discomfort, Improve function, Improve disease control Activity Recommendations Activity Limitations: as noted below Lifting Limitations: no more than 10 pounds Exercise/Sports Limitations: until after follow-up appointment May Resume Sexual Activity: when tolerated Shower/Bathe: tomorrow Driving or Machine Use: may drive in 1 week SPECIAL CARE INSTRUCTIONS: * Cover incisions and change daily for comfort/drainage. * May use ibuprofen for pain as tolerated. * Expect some swelling and bruising. Call your doctor if: * Temperature above 101 degrees * Pain not relieved by pain medicine ordered * There is increased drainage or redness from any incision * You have any unanswered questions or concerns [phone]. FOLLOW UP VISIT: If not already scheduled, please call the office for a follow-up visit. for next week- sorin and check up OFFICE PHONE NUMBER: Dr. Piña Office . Current Hospital Diet Patient's current hospital diet: Full Liquid Diet Discharge Diet Recommended Diet: Regular Diet Procedures Procedures Performed: Laparotomy, Abdominal Exploration, Lysis of Adhesions Pending Studies Studies pending at discharge: no Laboratory Results Lipid Panel Test 11/04/16 07:18 Range/Units Triglycerides Level 70 0-150 mg/dl Medical Emergencies . Who to Call and When: Medical Emergencies: If at any time you feel your situation is an emergency, please call 911 immediately. . Non-Emergent Contact Non-Emergency issues call your: Surgeon . "Provider Documentation" section prepared by Narayan Piña. VTE Core Measure Inpt VTE Proph given/why not?: Enoxaparin (Lovenox)SQ, SCD's (possible procedure upcoming)
[2016-11-05] MEDS ORDERED: HYDR-5688 PO (12:03)
[2016-11-05] MEDS ORDERED: CUSTOM PERIPHERAL PN 1 BAG IV SCH (16:00)
[2016-11-05 16:06] VITALS: BP 129/83; PULSE 72; TEMP 37.1; O2SAT 94
[2016-11-05 16:30] VITALS: O2SAT 94
--- NOTE | 2016-11-05 19:15 | Progress Note ---
Internal Med Progress Note Date of Service: Nov 05, 2016. Provider Documentation: SUBJECTIVE: Seen and examined at bedside. Patient continues to improve clinically. Had BMs today. Tolerating diet. Denies and nausea, abd pain, chest pain, SOB. OBJECTIVE: Vital Signs-as noted below Physical Exam: General Appearance:Moderately built and nourished, no apparent distress Head: normocephalic, Atraumatic Eyes: normal inspection, EOMI, PERRLA Neck: supple, no JVD, Trachea midline Respiratory/Chest: Normal breath sounds, CTA, No accessory muscle use Cardiovascular: S1, S2, No murmur Abdomen/GI:Soft, Non tender, Bowel sounds diminished, Surgical site in bandage Extremities/Musculoskelatal:normal inspection, no edema Neurologic/Psych:AAOX3, grossly no focal neurological deficits Skin: normal color, warm Lab data as noted below. ASSESSMENT & PLAN: SBO : S/P Laparotomy with adhesiolysis/Enterolysis on 10/31/[address] Piña Much improved. Had BMs today NG tube discontinued yesterday Tolerating full liquid diet IV Fluids, Pain management- per surgery Continue IV Reglan- started by Dr Piña Continue IV PPN On PPI, Senna Surgery on board Ambulate as tolerated Likely plan to be discharged tomorrow once cleared by surgery HYPOPHOSPHATEMIA/HYPOKALEMIA Resolved ALIS - Resolved pre renal due to vomiting S/P IVF Monitor DVT PROPHYLAXIS Lovenox SQ DISPO Plan to DC home once stable and cleared by surgery Needs follow up with PCP and Surgery Vital Signs: Date Time Temp Pulse Resp B/P Pulse Ox O2 Delivery O2 Flow Rate FiO2 11/05/16 16:06 37.1 72 18 129/83 94 Room Air 11/05/16 08:55 95 Room Air 11/05/16 08:39 Room Air 11/05/16 07:30 36.6 70 22 136/84 95 Room Air 11/05/16 03:11 36.8 71 14 127/85 94 Room Air 11/04/16 23:30 Room Air 11/04/16 23:21 36.7 73 16 129/82 94 Room Air 11/04/16 22:00 Room Air 11/04/16 20:03 36.7 79 18 138/84 92 Room Air Lab Results: Results Past 24 Hours Test 11/05/16 00:02 11/05/16 06:03 11/05/16 07:14 11/05/16 11:36 Range/Units Bedside Glucose 91 93 91 70-99 mg/dl Sodium Level 140 136-145 mmol/L Potassium Level 4.1 3.5-5.1 mmol/L Chloride Level 104 98-107 mmol/L Carbon Dioxide Level 27 21-32 mmol/L Anion Gap 9.0 3-11 mmol/L Blood Urea Nitrogen 12 7-18 mg/dl Creatinine 0.93 0.60-1.40 mg/dl Est Creatinine Clear Calc Drug Dose 104.8 ml/min Estimated GFR () 105.2 Estimated GFR (Non- 90.8 BUN/Creatinine Ratio 12.6 10-20 Random Glucose 89 70-99 mg/dl Calcium Level 9.0 8.5-10.1 mg/dl Phosphorus Level 3.4 2.5-4.9 mg/dl Magnesium Level 2.4 1.8-2.4 mg/dl
[2016-11-05 23:27] VITALS: BP 121/80; PULSE 69; TEMP 37; O2SAT 96
[2016-11-06] MEDS: METOCLOPRAMIDE HCL INJ 5 MG/ML 2 ML VIAL IV. SCH (04:08)
[2016-11-06] MEDS: SENNA 8.8 MG/5 ML UDP PO SCH (07:12)
[2016-11-06 07:59] VITALS: BP 119/80; PULSE 75; TEMP 36.4; O2SAT 92
[2016-11-06 08:17] LABS: HEMATOCRIT 41.4 % (42-52); MEAN CELL VOLUME 87.3 fL (80-100); MEAN CORPUSCULAR HEMOGLOBIN 31.6 pg (25-34); MEAN CORPUSCULAR HGB CONC 36.2 g/dl (32-36); MEAN PLATELET VOLUME 9.6 fL (7.4-10.4); PLATELET COUNT 340 K/uL (130-400); RED BLOOD COUNT 4.74 M/uL (4.7-6.1); WHITE BLOOD COUNT 8.97 K/uL (4.8-10.8)
[2016-11-06] MEDS: ENOXAPARIN 40 MG/0.4 ML SYR SQ SCH (08:53)
[2016-11-06 10:16] VITALS: BP 119/80; PULSE 75; TEMP 36.4; O2SAT 92
--- NOTE | 2016-11-06 13:23 | Progress Note ---
Progress Note Unable to see patient. Patient was discharged by
--- NOTE | 2016-11-06 20:17 | Discharge Summary ---
Discharge Summary Admission Date: Oct 30, 2016 at 16:50 Discharge Date: Nov 06, 2016 Principal Diagnosis: small bowel obstruction from adhesions Procedures: S/P Laparotomy with adhesiolysis/Enterolysis on 10/31/[address] Piña Consultations: Surgery Pending Studies/Follow-Up: Follow up with Medication Reconciliation New Medications: Hydrocodone/Acetaminophen 5MG/325MG (Jacobson 5MG/325MG) Tab 1-2 TABLET PO q 6 hrs PRN for Pain, #30 TAB PRN PAIN Continued Medications: Dicyclomine Hcl (Dicyclomine Hcl) 20 Mg Tab 40 MG PO QID PRN for Pain for 30 Days, #240 TAB 11 Refills Omeprazole (Prilosec) 20 Mg Cap 20 MG PO DAILY PRN for pt, CAP Oxycodone/Acetaminophen 5MG/325MG (Percocet 5MG/325MG) Tab 1-2 TABS PO Q6 PRN for Pain, #20 TAB Vardenafil (Levitra) 20 Mg Tab 20 MG PO DIRECTED, TAB Admission Information HPI (per Admitting provider): 55 year old male who presents to the ER with abdominal pain, nausea, and vomiting. Patient reports he started getting sick 3 days ago. He has had persistent nausea and vomiting. He reports LLQ pain. He describes it as dull and persistent. For the past several months, he reports he has been getting episodes of LLQ pain that are sharp and will resolve after a couple of hours. He has been following with GI who started him on Bentyl. He reports he had a formed bowel movement yesterday however it was a small amount. He is unsure when his last normal bowel movement was. He reports increasing abdominal distention. He denies hematemesis or coffee ground emesis. He describes his emesis as bilious. He denies chest pain. He reports some shortness of breath when the pain is severe. No lightheadedness, dizziness, diaphoresis, or syncopal events. He denies fever and chills. No cough or sputum production. No urinary symptoms. In the ER, patient had a CT abd/pelvis that is showing SBO. WBC 12K, creat 1.5. Physical Exam (per Admitting): General Appearance: + mild distress (due to nausea/pain) Head: normocephalic Eyes: normal inspection ENT: hearing grossly normal Neck: supple, no JVD Respiratory/Chest: lungs clear, normal breath sounds, no respiratory distress Cardiovascular: regular rate, rhythm, no edema Abdomen/GI: soft, + tenderness (LLQ), + abnormal bowel sounds (hyperactive RUQ, RLQ; hypoactive LLQ, LUQ) Extremities/Musculoskelatal: normal inspection, no calf tenderness Neurologic/Psych: no motor/sensory deficits, alert, normal mood/affect, oriented x 3 Skin: normal color, warm/dry Hospital Course SBO : S/P Laparotomy with adhesiolysis/Enterolysis on 10/31/[address] Piña Much improved. Had BMs today NG tube discontinued yesterday Tolerating full liquid diet IV Fluids, Pain management- per surgery Continue IV Reglan- started by Dr Piña Continue IV PPN On PPI, Senna Surgery on board Ambulate as tolerated Likely plan to be discharged tomorrow once cleared by surgery HYPOPHOSPHATEMIA/HYPOKALEMIA Resolved ALIS - Resolved pre renal due to vomiting S/P IVF Monitor DVT PROPHYLAXIS Lovenox SQ DISPO Patient was discharged home today by surgery No able to see the patient. Total time spent on discharge = This includes examination of the patient, discharge planning, medication reconciliation, and communication with other providers. Discharge Instructions Patient was discharged by Surgery, was not able to see patient Surgery Instructions: Discharge Instructions Admission Reason for Admission: Sbo (Small Bowel Obstruction) Discharge Discharge Diagnosis / Problem: small bowel obstruction from adhesions Discharge Goals Goal(s): Decrease discomfort, Improve function, Improve disease control Activity Recommendations Activity Limitations: as noted below Lifting Limitations: no more than 10 pounds Exercise/Sports Limitations: until after follow-up appointment May Resume Sexual Activity: when tolerated Shower/Bathe: tomorrow Driving or Machine Use: may drive in 1 week SPECIAL CARE INSTRUCTIONS: * Cover incisions and change daily for comfort/drainage. * May use ibuprofen for pain as tolerated. * Expect some swelling and bruising. Call your doctor if: * Temperature above 101 degrees * Pain not relieved by pain medicine ordered * There is increased drainage or redness from any incision * You have any unanswered questions or concerns [phone]. FOLLOW UP VISIT: If not already scheduled, please call the office for a follow-up visit. for next week- sorin and check up OFFICE PHONE NUMBER: Dr. Piña Office . Current Hospital Diet Patient's current hospital diet: Full Liquid Diet Discharge Diet Recommended Diet: Regular Diet Procedures Procedures Performed: Laparotomy, Abdominal Exploration, Lysis of Adhesions Pending Studies Studies pending at discharge: no Laboratory Results Lipid Panel Test 11/04/16 07:18 Range/Units Triglycerides Level 70 0-150 mg/dl Medical Emergencies . Who to Call and When: Medical Emergencies: If at any time you feel your situation is an emergency, please call 911 immediately. . Non-Emergent Contact Non-Emergency issues call your: Surgeon . "Provider Documentation" section prepared by Narayan Piña. VTE Core Measure Inpt VTE Proph given/why not?: Enoxaparin (Lovenox)SQ, SCD's (possible procedure upcoming) <Electronically signed by Narayan Piña M.D.> Signed: 11/05/16 1203 Signed: The status of this report is Signed * If report status is Draft, the document has not been finalized by the responsible provider.
== END 2016-11-06 11:00 | disposition home or self-care (01) | DRG 336 ==
LOC: ENRESERVTM → ENRESERVDT → C.EDB 10:13 → C.MSN 16:50
PROVIDERS: ADMIT Hospitalist; ATTEND Internal Medicine
PROC: 0DNW0ZZ Release Peritoneum, Open Approach (ICD-10-PCS; principal; 2016-10-31 07:00)
DX: K56.5 Intestinal adhesions [bands] with obstruction (postinfection) (principal); N17.9 Acute kidney failure, unspecified; Z90.49 Acquired absence of other specified parts of digestive tract; Z79.899 Other long term (current) drug therapy; D72.829 Elevated white blood cell count, unspecified; E86.0 Dehydration; E83.39 Other disorders of phosphorus metabolism; E87.6 Hypokalemia

== ENCOUNTER 2018-01-18 18:43 | Inpatient (IN) | payer BC ==
[~2018-01-18] VITALS: Ht 182.9 cm; Wt 86.2 kg
[~2018-01-18 18:43] MED LIST changes: +DICY20TA10 PO; -ONDA4TAB10 SL; -ONDA4TAB54 PO; -OXYC-57 PO
[2018-01-18] MEDS ORDERED: PANTOprazole INJ 80 MG in DEXTROSE 5% 100ML 100 ML IV STA (19:02)
[2018-01-18] MEDS ORDERED: ONDANSETRON INJ 2 MG/ML 2 ML VIAL IV STA ×2 (19:02→22:26)
[2018-01-18] MEDS ORDERED: SODIUM CHLORIDE 0.9% 1000ML 1,000 ML IV STA (19:02)
[2018-01-18] MEDS: MoRPHine SULFATE 4 MG/ML 1 ML CARP\\VIAL IV PRN ×2 (19:12→22:30)
[2018-01-18] MEDS ORDERED: OPTIRAY 320 IV PRN (19:15)
[2018-01-18 19:24] LABS: BASO % 0.3 %; BASO ABS # 0.03 K/uL (0-0.2); EOS % 0.5 %; EOS ABS # 0.05 K/uL (0-0.5); HEMOGLOBIN 16.3 g/dL (14.0-18.0); IG# 0.01 K/uL (0.00-0.02); LYMPH ABS # 1.55 K/uL (1.2-3.4); MEAN CELL VOLUME 91.3 fL (80-100); MEAN CORPUSCULAR HEMOGLOBIN 31.7 pg (25-34); MEAN CORPUSCULAR HGB CONC 34.7 g/dl (32-36); MEAN PLATELET VOLUME 10.2 fL (7.4-10.4); MONO % 6.4 %; MONO ABS # 0.58 K/uL (0.11-0.59); NEUT % 75.7 %; NEUT ABS # 6.88 K/uL (1.4-6.5); PLATELET COUNT 242 K/uL (130-400); RED CELL DISTRIBUTION WIDTH CV 13.6 % (11.5-14.5); RED CELL DISTRIBUTION WIDTH SD 44.5 fL (36.4-46.3)
--- NOTE | 2018-01-18 19:30 | EMERGENCY ROOM VISIT NOTE ---
History Report prepared by Bernarda: Sissy Del Valle Under the Supervision of: Dr. Brown Rodriguez M.D. First contact with patient: 18:54 Chief Complaint: ABDOMINAL PAIN Stated Complaint: STOMACH PAIN History of Present Illness The patient is a 57 year old male who presents to the Emergency Room with complaints of worsening abdominal pain starting this morning. The patient has been having intermittent abdominal pain for a few months. He mostly notices it in the morning with nausea. Last week he started vomiting during the day which seemed to relieve the abdominal pain. Today, the pain has been worsening and not resolving with vomiting. He has vomited several times now. The pain is in his mid-abdomen. He currently rates his discomfort as a 6/10 in severity. The pain does not go into his back. He denies any diarrhea or fever. He has had a cholecystectomy. He had hiatal hernia surgery around 1 year ago. He had trouble with narrowing of his bowel in the past. He is not on blood thinners. He had an X-ray at [facility] earlier today. Source of History: patient, spouse/significant other Onset: this morning Position: abdomen Symptom Intensity: 6/10 Timing: worsening Associated Symptoms: + nausea, + vomiting, No fevers, No back pain, No diarrhea Review of Systems See HPI for pertinent positives & negatives. A total of 10 systems reviewed and were otherwise negative. Past Medical & Surgical Surgical Problems: (1) H/O inguinal hernia repair (2) History of repair of hiatal hernia (3) S/P cholecystectomy Family History Hypertension Social History Smoking Status: Never Smoker Alcohol Use: none Marital Status: Housing Status: lives with family Occupation Status: employed Current/Historical Medications Scheduled Coenzyme Q10 (Ubidecarenone) (Co Q-10), 1 CAP PO DAILY Garlic (Garlic), 1 CAP PO BID Magnesium Oxide (Mag-Ox), 400 MG PO DAILY Misc Natural Products (Saw Duarte), 1 CAP PO DAILY Multivitamin (Multivitamin), 1 TAB PO DAILY [place]-3 Fatty Acids (Fish Oil), 1 CAP PO BID Turmeric (Curcuma Longa) (Turmeric), Unknown Dose PO DAILY Vitamin D & K (D3 + K2 Dots), 1 TAB PO DAILY [[place] 7], 1 CAP PO DAILY Scheduled PRN Omeprazole (Prilosec), 20 MG PO DAILY PRN for GI Upset Allergies Coded Allergies: No Known Allergies (Unverified , 05/12/16) Physical Exam Vital Signs Date Time Temp Pulse Resp B/P (MAP) Pulse Ox O2 Delivery O2 Flow Rate FiO2 01/18/18 22:30 67 18 120/86 97 Room Air 01/18/18 21:31 69 18 151/87 98 Nasal Cannula 2.0 01/18/18 20:51 72 01/18/18 20:30 67 18 126/76 97 Nasal Cannula 2.0 01/18/18 20:10 75 18 128/85 99 Nasal Cannula 2.0 01/18/18 19:30 63 18 142/89 96 Room Air 01/18/18 19:20 70 18 124/74 96 Room Air 01/18/18 18:51 36.7 77 16 131/74 98 Room Air Physical Exam GENERAL: Patient is in moderate distress, vomiting maroon-colored/bloody- appearing secretions. HEENT: No acute trauma, normocephalic atraumatic, mucous membranes moist, no nasal congestion, no scleral icterus. NECK: No stridor, no adenopathy, no meningismus, trachea is midline. LUNGS: Clear to auscultation bilaterally, no wheeze, no rhonchi, breath sounds equal. HEART: Without murmurs gallops or rubs, regular rate and rhythm. ABDOMEN: Soft, mildly diffusely tender, moderately tender in the epigastrium, bowel sounds positive, no hernias, no peritonitis. EXTREMITIES: No cyanosis or edema, full range of motion of all the joints without pain or difficulty, no signs for acute trauma. NEUROLOGIC: Oriented x 3, no acute motor or sensory deficits, no focal weakness. SKIN: No rash, no jaundice, no diaphoresis. Medical Decision & Procedures ER Provider Diagnostic Interpretation: X-ray results as stated below per interpretation by me and the radiologist. Radiology results as stated below per my review and radiologist interpretation: CHEST ONE VIEW PORTABLE CLINICAL HISTORY: ABDOMINAL PAIN/GI pain COMPARISON STUDY: 10/30/2016 FINDINGS: Fixed hiatal hernia. Lungs otherwise are clear.-The diaphragms are smooth. No significant cardiac enlargement. IMPRESSION: Hiatal hernia. Otherwise negative study. The above report was generated using voice recognition software. It may contain grammatical, syntax or spelling errors. Electronically signed by: Negrito Haile M.D. 01/18/2018 7:33 PM Dictated Date/Time: 01/18/2018 7:32 PM ABD/PELVIS IV CONTRAST ONLY CT DOSE: 709.32 mGy.cm HISTORY: Pain. Obstruction. ABD PAIN, POSS OBSTRUCTION, IV CONTRAST ONLY TECHNIQUE: Multiaxial CT images of the abdomen and pelvis were performed following the use of intravenous contrast. A dose lowering technique was utilized adhering to the principles of ALARA. COMPARISON STUDY: 10/30/2016 FINDINGS: Mildly progressive interstitial change left base possibly inflammatory. Right base is clear. Fixed hiatal hernia increased in volume from the prior study. The bulk of the stomach is now superior to the diaphragmatic hiatus. The liver spleen and pancreas enhance uniformly. The kidneys enhance uniformly. Prior cholecystectomy. Bowel pattern is suggestive of a mild nonobstructive ileus. Scattered colonic diverticuli with no evidence for diverticulitis. Several repaired anterior abdominal wall hernias. No evidence for hernia recurrence. Colonic pattern is nonobstructive. No evidence for acute diverticulitis. IMPRESSION: 1. Considerable increase in size of a hiatal hernia with the bulk of the stomach now superior to the diaphragm. 2. Prior cholecystectomy. 3. Mild small bowel ileus with no evidence for an obstructive pattern. 4. Scattered colonic diverticuli with no evidence for diverticulitis. 5. Interstitial infiltrate left base The above report was generated using voice recognition software. It may contain grammatical, syntax or spelling errors. Electronically signed by: Negrito Haile M.D. 01/18/2018 8:31 PM Dictated Date/Time: 01/18/2018 8:22 PM Laboratory Results 01/18/18 19:09 Red Blood Count 5.15, Mean Corpuscular Volume 91.3, Mean Corpuscular Hemoglobin 31.7, Mean Corpuscular Hemoglobin Concent 34.7, Mean Platelet Volume 10.2, Neutrophils (%) (Auto) 75.7, Lymphocytes (%) (Auto) 17.0, Monocytes (%) (Auto) 6.4, Eosinophils (%) (Auto) 0.5, Basophils (%) (Auto) 0.3, Neutrophils # (Auto) 6.88, Lymphocytes # (Auto) 1.55, Monocytes # (Auto) 0.58, Eosinophils # (Auto) 0.05, Basophils # (Auto) 0.03 01/18/18 19:09 Test 01/18/18 19:09 01/18/18 19:15 White Blood Count 9.10 K/uL (4.8-10.8) Red Blood Count 5.15 M/uL (4.7-6.1) Hemoglobin 16.3 g/dL (14.0-18.0) Hematocrit 47.0 % (42-52) Mean Corpuscular Volume 91.3 fL (80-100) Mean Corpuscular Hemoglobin 31.7 pg (25-34) Mean Corpuscular Hemoglobin Concent 34.7 g/dl (32-36) Platelet Count 242 K/uL (130-400) Mean Platelet Volume 10.2 fL (7.4-10.4) Neutrophils (%) (Auto) 75.7 % Lymphocytes (%) (Auto) 17.0 % Monocytes (%) (Auto) 6.4 % Eosinophils (%) (Auto) 0.5 % Basophils (%) (Auto) 0.3 % Neutrophils # (Auto) 6.88 K/uL (1.4-6.5) Lymphocytes # (Auto) 1.55 K/uL (1.2-3.4) Monocytes # (Auto) 0.58 K/uL (0.11-0.59) Eosinophils # (Auto) 0.05 K/uL (0-0.5) Basophils # (Auto) 0.03 K/uL (0-0.2) RDW Standard Deviation 44.5 fL (36.4-46.3) RDW Coefficient of Variation 13.6 % (11.5-14.5) Immature Granulocyte % (Auto) 0.1 % Immature Granulocyte # (Auto) 0.01 K/uL (0.00-0.02) Prothrombin Time 10.0 SECONDS (9.0-12.0) Prothromb Time International Ratio 1.0 (0.9-1.1) Activated Partial Thromboplast Time 28.2 SECONDS (21.0-31.0) Partial Thromboplastin Ratio 1.1 Anion Gap 7.0 mmol/L (3-11) Est Creatinine Clear Calc Drug Dose 70.7 ml/min Estimated GFR () 73.1 Estimated GFR (Non- 63.1 BUN/Creatinine Ratio 12.7 (10-20) Calcium Level 9.8 mg/dl (8.5-10.1) Total Bilirubin 0.8 mg/dl (0.2-1) Aspartate Amino Transf (AST/SGOT) 20 U/L (15-37) Alanine Aminotransferase (ALT/SGPT) 29 U/L (12-78) Alkaline Phosphatase 117 U/L (45-117) Troponin I < 0.015 ng/ml (0-0.045) Total Protein 8.6 gm/dl (6.4-8.2) Albumin 4.5 gm/dl (3.4-5.0) Globulin 4.1 gm/dl (2.5-4.0) Albumin/Globulin Ratio 1.1 (0.9-2) Lipase 701 U/L (73-393) Gastric Fluid pH 2 Gastric Fluid Occult Blood POS (NEG) Laboratory results reviewed by me. Medications Administered Medications (Trade) Dose Ordered Sig/Blayne Route Start Time Stop Time Status Last Admin Dose Admin Ondansetron HCl (Zofran Inj) 4 mg NOW STAT IV 01/18/18 19:02 01/18/18 19:05 DC 01/18/18 19:09 4 MG Sodium Chloride 1,000 ml @ 999 mls/hr Q1H1M STAT IV 01/18/18 19:02 01/18/18 20:02 DC 01/18/18 19:11 999 MLS/HR Morphine Sulfate (MoRPHine SULFATE INJ) 4 mg Q30M PRN IV 01/18/18 19:15 02/01/18 19:14 01/18/18 22:30 4 MG Pantoprazole Sodium 80 mg/ Dextrose 120 ml @ 400 mls/hr NOW STAT IV 01/18/18 19:02 01/18/18 19:19 DC 01/18/18 19:36 400 MLS/HR Pantoprazole Sodium 40 mg/ Dextrose 100 ml @ 20 mls/hr Q5H IV 01/18/18 22:30 01/19/18 03:29 01/18/18 22:31 20 MLS/HR Ondansetron HCl (Zofran Inj) 4 mg NOW STAT IV 01/18/18 22:26 01/18/18 22:27 DC 01/18/18 22:27 4 MG Prochlorperazine Edisylate (Compazine Inj) 10 mg STK-MED ONCE .ROUTE 4/30/18 23:02 01/18/18 23:03 DC 01/18/18 23:06 10 MG ECG Per My Interpretation Indication: abdominal pain Rate (beats per minute): 64 Rhythm: normal sinus Findings: no ectopy, other (no ST elevation, no PVC) ED Course 1855: The patient was evaluated in room B12B. A complete history and physical exam was performed. 1901: Pantoprazole Sodium 80 mg/Dextrose 120 ml @ 400 mls/hr IV, Sodium Chloride 1000 ml @ 999 mls/hr IV, Zofran Inj 4 mg IV. 1914: Morphine Sulfate 4 mg IV. 2036: I reevaluated the patient. I updated him on the results. 2053: I discussed the patient's case with [facility]. He states that from a GI standpoint there is nothing to do for the bleeding tonight. He recommends considering transfer because the recurrence of hiatal hernia. 2104: I discussed the patient's case with Carlos Manuel Olvera PA-C [facility] general surgery. The patient will be evaluated for further management. 2123: Surgery has evaluated the patient and will consult cardiothoracic surgery. 2147: Surgery has spoke with cardiothoracic surgery who will see the patient in the morning. 2152: Upon reexamination the patient is stable. I discussed results and treatment plan with the patient. He verbalizes agreement and understanding. The patient will be evaluated for further management. 2204: I discussed the patient's case with Dr. Abreu, [facility] hospitalist. The patient will be evaluated for further management. 8: Pantoprazole Sodium 40 mg/Dextrose 100 ml @ 20 mls/hr IV. 6: Zofran Inj 4 mg IV. Medical Decision Differential diagnoses considered include bowel obstruction, GI bleeding, gastritis, ulcer, bowel perforation, pancreatitis, biliary colic, diverticulitis , appendicitis, food borne or viral illness. There is no leukocytosis or concerning anemia. No significant electrolyte abnormality or kidney failure. No evidence for liver enzyme elevation. The patient does have an elevated lipase, this could be the start of pancreatitis or the value may be elevated just from the vomiting alone. Chest film shows recurrence of his hiatal hernia, no pneumonia or pneumothorax, no free air. EKG shows a sinus rhythm, no acute ischemia. Cardiac enzyme testing 1 is not consistent with acute cardiac injury. Chest CT shows a large hiatal hernia, no bowel obstruction or free air. The patient was actively vomiting in the room, it was coffee-ground in appearance, a Gastroccult was done and it was heme positive. The patient was aggressively managed. He received IV saline, IV Zofran and IV morphine. He received a second dose of IV Zofran for persistent nausea. Patient was given a bolus of IV Protonix and was placed on an IV Protonix drip. I talked with GI, the patient does not need any type of emergent endoscopy. I spoke with general surgery and the patient was seen by general surgery here in the ED. After general surgery discussed the case with cardiothoracic surgery, it was felt the patient could not stay in our hospital. Patient's abdominal pain and issues may all be from the recurrence of his hiatal hernia. The patient was updated on his results and findings, case management has been involved. Hospitalization is required. Medication Reconcilliation Current Medication List: was personally reviewed by me Blood Pressure Screening Patient's blood pressure: Elevated blood pressure Referred to hospitalist. Consults Time Called: 2035 Consulting Physician: Dr. Carmona [facility] gastroenterology Returned Call: 2053 I discussed the patient's case with him. He states that from a GI standpoint there is nothing to do for the bleeding tonight. He recommends considering transfer because the recurrence of hiatal hernia. Additional Consults: Time Called: 2058 Consulted Physician: [facility] Returned Call: 2104 Additional Comments: I discussed the patient's case with him. The patient will be evaluated for further management. Time Called: 2202 Consulted Physician: Dr. Abreu, [facility] hospitalist Returned Call: 2204 Additional Comments: Discussed the patient's case. The patient will be evaluated for further management. Impression Primary Impression: Hematemesis Additional Impressions: Epigastric abdominal pain Hiatal hernia Pancreatitis Critical Care I have personally spent greater than 30 minutes of critical care time in the direct management of this patient. This includes bedside care, interpretation of diagnostic studies and testing, discussion with consultants, the patient, and family members, and other required patient management activities. This 30 minutes is in excess of all separately billable procedures. Scribe Attestation The scribe's documentation has been prepared under my direction and personally reviewed by me in its entirety. I confirm that the note above accurately reflects all work, treatment, procedures, and medical decision making performed by me. Departure Information Dispostion Being Evaluated By Hospitalist Referrals No Doctor, Assigned (PCP) Patient Instructions My [facility] Problem Qualifiers
--- NOTE | 2018-01-18 19:34 | DIAGNOSTIC IMAGING REPORT ---
CHEST ONE VIEW PORTABLE CLINICAL HISTORY: ABDOMINAL PAIN/GI pain COMPARISON STUDY: 10/30/2016 FINDINGS: Fixed hiatal hernia. Lungs otherwise are clear.-The diaphragms are smooth. No significant cardiac enlargement. IMPRESSION: Hiatal hernia. Otherwise negative study. The above report was generated using voice recognition software. It may contain grammatical, syntax or spelling errors. Electronically signed by: Negrito Haile M.D. 01/18/2018 7:33 PM Dictated Date/Time: 01/18/2018 7:32 PM
[2018-01-18 19:35] LABS: PTT PATIENT 28.2 SECONDS (21.0-31.0)
[2018-01-18 19:42] LABS: ALBUMIN 4.5 gm/dl (3.4-5.0); ALT/SGPT 29 U/L (12-78); AST/SGOT 20 U/L (15-37); BLOOD UREA NITROGEN 16 mg/dl (7-18); CALCIUM 9.8 mg/dl (8.5-10.1); CARBON DIOXIDE 30 mmol/L (21-32); CREATININE 1.25 mg/dl (0.60-1.40); GLUCOSE 95 mg/dl (70-99); LIPASE 701 U/L (73-393); POTASSIUM 3.8 mmol/L (3.5-5.1); SODIUM 141 mmol/L (136-145)
[2018-01-18 19:47] LABS: ALKALINE PHOSPHATASE 117 U/L (45-117); TOTAL PROTEIN 8.6 gm/dl (6.4-8.2)
--- NOTE | 2018-01-18 20:32 | DIAGNOSTIC IMAGING REPORT ---
ABD/PELVIS IV CONTRAST ONLY CT DOSE: 709.32 mGy.cm HISTORY: Pain. Obstruction. ABD PAIN, POSS OBSTRUCTION, IV CONTRAST ONLY TECHNIQUE: Multiaxial CT images of the abdomen and pelvis were performed following the use of intravenous contrast. A dose lowering technique was utilized adhering to the principles of ALARA. COMPARISON STUDY: 10/30/2016 FINDINGS: Mildly progressive interstitial change left base possibly inflammatory. Right base is clear. Fixed hiatal hernia increased in volume from the prior study. The bulk of the stomach is now superior to the diaphragmatic hiatus. The liver spleen and pancreas enhance uniformly. The kidneys enhance uniformly. Prior cholecystectomy. Bowel pattern is suggestive of a mild nonobstructive ileus. Scattered colonic diverticuli with no evidence for diverticulitis. Several repaired anterior abdominal wall hernias. No evidence for hernia recurrence. Colonic pattern is nonobstructive. No evidence for acute diverticulitis. IMPRESSION: 1. Considerable increase in size of a hiatal hernia with the bulk of the stomach now superior to the diaphragm. 2. Prior cholecystectomy. 3. Mild small bowel ileus with no evidence for an obstructive pattern. 4. Scattered colonic diverticuli with no evidence for diverticulitis. 5. Interstitial infiltrate left base The above report was generated using voice recognition software. It may contain grammatical, syntax or spelling errors. Electronically signed by: Negrito Haile M.D. 01/18/2018 8:31 PM Dictated Date/Time: 01/18/2018 8:22 PM
--- NOTE | 2018-01-18 22:17 | Surgery Consultation ---
Consultation Date of Consultation: Jan 18, 2018. Attending Physician: Reason for Consultation: hiatal hernia History of Present Illness Patient is a 57[address] Lehman for a hiatal hernia repair in February 2016. He presents to the ED this evening due to abdominal pain starting this morning. He has had intermittent abdominal pain the past few months. Reports he feels nauseated in the morning. Sometimes he will vomit to relieve his pain. Currently his pain is in his epigastric area without radiation. Denies fever/ chills. Last BM yesterday which was normal for him. He is urinating without trouble. PSHx significant for cholecystectomy, right inguinal hernia repair and laparotomy w/ extensive lysis of adhesions. Denies use of blood thinning or anticoagulant medications. labs wnl. CT shows a significant increase in size of a hiatal hernia with bulk of stomach above the diaphragm. Also shows mild non- obstructive ileus. Past Medical/Surgical History Medical Problems: (1) Abdominal pain Status: Acute (2) Abnormal abdominal CT scan Status: Acute (3) Hiatal hernia Status: Acute (4) Incarcerated hiatal hernia Status: Acute (5) Intractable abdominal pain Status: Acute (6) Nausea and vomiting Status: Acute (7) Postoperative complication Status: Acute Family History Hypertension Social History Smoking Status: Never Smoker Marital Status: Housing Status: lives with family Occupation Status: employed Allergies Coded Allergies: No Known Allergies (Unverified , 05/12/16) Home Medications Scheduled Vardenafil (Levitra), 20 MG PO DIRECTED Scheduled PRN Dicyclomine Hcl (Dicyclomine Hcl), 40 MG PO QID PRN for Pain Omeprazole (Prilosec), 20 MG PO DAILY PRN for pt Current Inpatient Medications Current Inpatient Medications Medications (Trade) Dose Ordered Sig/Blayne Route Start Time Stop Time Status Last Admin Dose Admin Morphine Sulfate (MoRPHine SULFATE INJ) 4 mg Q30M PRN IV 01/18/18 19:15 02/01/18 19:14 01/18/18 19:12 4 MG Ioversol (Optiray 320) 100 ml UD PRN IV 01/18/18 19:15 01/22/18 19:14 Review of Systems Constitutional: No fever, No chills Respiratory: + cough, No shortness of breath Cardiovascular: No chest pain Abdomen: + pain (Epigastric), + nausea, + vomiting, No diarrhea, No constipation Genitourinary - Male: No dysuria Physical Exam Date Time Temp Pulse Resp B/P (MAP) Pulse Ox O2 Delivery O2 Flow Rate FiO2 01/18/18 21:31 69 18 151/87 98 Nasal Cannula 2.0 01/18/18 20:51 72 01/18/18 20:30 67 18 126/76 97 Nasal Cannula 2.0 01/18/18 20:10 75 18 128/85 99 Nasal Cannula 2.0 01/18/18 19:30 63 18 142/89 96 Room Air 01/18/18 19:20 70 18 124/74 96 Room Air 01/18/18 18:51 36.7 77 16 131/74 98 Room Air General Appearance: WD/WN, no apparent distress Head: normocephalic, atraumatic ENT: hearing grossly normal Respiratory/Chest: no respiratory distress, no accessory muscle use Abdomen/GI: soft, no organomegaly, no pulsatile mass, + tenderness (Epigastic mild TTP (patient did receive pain medication in ED)) Neurologic/Psych: alert, normal mood/affect, oriented x 3 Skin: normal color, warm/dry Laboratory Results Last 24 Hours Test 01/18/18 19:09 01/18/18 19:15 White Blood Count 9.10 K/uL Red Blood Count 5.15 M/uL Hemoglobin 16.3 g/dL Hematocrit 47.0 % Mean Corpuscular Volume 91.3 fL Mean Corpuscular Hemoglobin 31.7 pg Mean Corpuscular Hemoglobin Concent 34.7 g/dl Platelet Count 242 K/uL Mean Platelet Volume 10.2 fL Neutrophils (%) (Auto) 75.7 % Lymphocytes (%) (Auto) 17.0 % Monocytes (%) (Auto) 6.4 % Eosinophils (%) (Auto) 0.5 % Basophils (%) (Auto) 0.3 % Neutrophils # (Auto) 6.88 K/uL Lymphocytes # (Auto) 1.55 K/uL Monocytes # (Auto) 0.58 K/uL Eosinophils # (Auto) 0.05 K/uL Basophils # (Auto) 0.03 K/uL RDW Standard Deviation 44.5 fL RDW Coefficient of Variation 13.6 % Immature Granulocyte % (Auto) 0.1 % Immature Granulocyte # (Auto) 0.01 K/uL Prothrombin Time 10.0 SECONDS Prothromb Time International Ratio 1.0 Activated Partial Thromboplast Time 28.2 SECONDS Partial Thromboplastin Ratio 1.1 Sodium Level 141 mmol/L Potassium Level 3.8 mmol/L Chloride Level 104 mmol/L Carbon Dioxide Level 30 mmol/L Anion Gap 7.0 mmol/L Blood Urea Nitrogen 16 mg/dl Creatinine 1.25 mg/dl Est Creatinine Clear Calc Drug Dose 70.7 ml/min Estimated GFR () 73.1 Estimated GFR (Non- 63.1 BUN/Creatinine Ratio 12.7 Random Glucose 95 mg/dl Calcium Level 9.8 mg/dl Total Bilirubin 0.8 mg/dl Aspartate Amino Transf (AST/SGOT) 20 U/L Alanine Aminotransferase (ALT/SGPT) 29 U/L Alkaline Phosphatase 117 U/L Troponin I < 0.015 ng/ml Total Protein 8.6 gm/dl Albumin 4.5 gm/dl Globulin 4.1 gm/dl Albumin/Globulin Ratio 1.1 Lipase 701 U/L Gastric Fluid pH 2 Gastric Fluid Occult Blood POS Assessment & Plan Recurrence of Hiatal Hernia Findings discussed with Dr. Lehman. Due to recurrence it may be beneficial to repair the hiatal hernia from above the diaphragm. Spoke with Dr. Montano. He is willing to see the patient tomorrow and recommends a barium swallow in AM. Admit per medicine service, consult thoracic surgery. NPO after midnight, D5W /NSS at 125 mls/hr. Please contact with questions or concerns.
[2018-01-18] MEDS ORDERED: ONDANSETRON INJ 2 MG/ML 2 ML VIAL ONE (22:26)
[2018-01-18] MEDS ORDERED: OMEGCAP2 PO ×2 (22:28)
[2018-01-18] MEDS ORDERED: MULT-506 PO ×2 (22:28)
[2018-01-18] MEDS ORDERED: PANTOprazole INJ 40 MG in DEXTROSE 5% 100ML IV SCH (22:30)
[2018-01-18] MEDS ORDERED: GARL1CAP6 PO ×2 (22:30)
[2018-01-18] MEDS ORDERED: OMEGA 7 PO ×2 (22:30)
[2018-01-18] MEDS ORDERED: MAGN400T6 PO ×2 (22:32)
[2018-01-18] MEDS ORDERED: TURM1CAP4 PO ×2 (22:34)
[2018-01-18] MEDS ORDERED: COEN100C3 PO ×2 (22:35)
[2018-01-18] MEDS ORDERED: MISC1CAP60 PO ×2 (22:37)
[2018-01-18] MEDS ORDERED: VITATAB8 PO ×2 (22:38)
--- NOTE | 2018-01-18 22:53 | History and Physical ---
History & Physical Date & Time of Service: Jan 18, 2018 at 22:53 Chief Complaint: Stomach Pain Primary Care Physician: No Doctor, Assigned History of Present Illness Source: patient, family, hospital records The patient is a 57-year-old male who presents to the emergency department with complaint of worsening epigastric and substernal chest discomfort with nausea and vomiting that began early in the morning and has persisted in the afternoon. His symptoms initially began a few months ago, and were self- limited. He reports that he began having more frequent abdominal pain last week , that was relieved by vomiting. He began to have persistent abdominal pain today that was not relieved by vomiting, presented to [facility] outpatient clinic, and then came to the emergency department for assessment. Past Medical/Surgical History Medical Problems: (1) Abdominal pain (2) Abnormal abdominal CT scan (3) Hiatal hernia (4) Incarcerated hiatal hernia (5) Intractable abdominal pain (6) Nausea and vomiting (7) Postoperative complication Surgical Problems: (1) H/O inguinal hernia repair (2) History of repair of hiatal hernia (3) S/P cholecystectomy Family History Hypertension Social History Smoking Status: Never Smoker Smokeless Tobacco Use: No Alcohol Use: none Drug Use: none Marital Status: Housing status: lives with family Occupational Status: employed Immunizations History of Influenza Vaccine: Unknown History of Tetanus Vaccine?: Yes Tetanus Immunization Date: February 18, 2013 History of Pneumococcal: Unknown History of Hepatitis B Vaccine: Yes Hepatitis Immunization Date: Mar 02, 2000 Allergies Coded Allergies: No Known Allergies (Unverified , 05/12/16) Home Medications Scheduled Coenzyme Q10 (Ubidecarenone) (Co Q-10), 1 CAP PO DAILY Garlic (Garlic), 1 CAP PO BID Magnesium Oxide (Mag-Ox), 400 MG PO DAILY Misc Natural Products ([place]), 1 CAP PO DAILY Multivitamin (Multivitamin), 1 TAB PO DAILY [place]-3 Fatty Acids (Fish Oil), 1 CAP PO BID Turmeric (Curcuma [place]) (Turmeric), Unknown Dose PO DAILY Vitamin D & K (D3 + K2 Dots), 1 TAB PO DAILY [[place] 7], 1 CAP PO DAILY Scheduled PRN Omeprazole (Prilosec), 20 MG PO DAILY PRN for GI Upset Review of Systems The patient denies chest pain, palpitations, shortness of breath, dyspnea on exertion, lower extremity swelling, sore throat, fevers, chills, sweats, diarrhea , constipation, pelvic pain, blood in urine or stool, dysuria, urinary frequency or urgency, lightheadedness , dizziness, headache, memory loss, loss of consciousness, rash, abnormal bruising or bleeding, imbalance, focal or generalized weakness, numbness or tingling in arms or legs, generalized arthralgias or myalgias, back or neck pain, or night sweats. The review of systems is otherwise negative other than for that already noted above, and at least 10 systems have been reviewed. Physical Exam Vital Signs Date Time Temp Pulse Resp B/P (MAP) Pulse Ox O2 Delivery O2 Flow Rate FiO2 01/18/18 22:30 67 18 120/86 97 Room Air 01/18/18 21:31 69 18 151/87 98 Nasal Cannula 2.0 01/18/18 20:51 72 01/18/18 20:30 67 18 126/76 97 Nasal Cannula 2.0 01/18/18 20:10 75 18 128/85 99 Nasal Cannula 2.0 01/18/18 19:30 63 18 142/89 96 Room Air 01/18/18 19:20 70 18 124/74 96 Room Air 01/18/18 18:51 36.7 77 16 131/74 98 Room Air The patient is awake, alert and oriented 3, normocephalic and atraumatic, lying in bed and in intermittent moderate distress secondary to abdominal pain. HEENT--PERRL, EOMI, mucous membranes and oropharynx dry. Neck--supple. No JVD. No bruits. Thyroid normal, trachea midline, no adenopathy. Heart--normal S1 and S2. No murmurs, rubs or gallops. Lungs--decreased breath sounds at the bases bilaterally, no respiratory distress , no accessory muscle use. Abdomen--normal bowel sounds and soft. Moderately severe epigastric tenderness. Nondistended, no hernias or masses, no organomegaly. Extremities--no cyanosis or clubbing. No edema. There are good distal pulses b/ l. Dermatologic--normal skin turgor, normal color, no abnormal lymph nodes, no rash. Neurologic--cranial nerves II through XII grossly intact. Rheumatologic--normal range of motion. Psychiatric--normal affect. Diagnostics Laboratory Results Results Past 24 Hours Test 01/18/18 19:09 01/18/18 19:15 Range/Units White Blood Count 9.10 4.8-10.8 K/uL Red Blood Count 5.15 4.7-6.1 M/uL Hemoglobin 16.3 14.0-18.0 g/dL Hematocrit 47.0 42-52 % Mean Corpuscular Volume 91.3 80-100 fL Mean Corpuscular Hemoglobin 31.7 25-34 pg Mean Corpuscular Hemoglobin Concent 34.7 32-36 g/dl Platelet Count 242 130-400 K/uL Mean Platelet Volume 10.2 7.4-10.4 fL Neutrophils (%) (Auto) 75.7 % Lymphocytes (%) (Auto) 17.0 % Monocytes (%) (Auto) 6.4 % Eosinophils (%) (Auto) 0.5 % Basophils (%) (Auto) 0.3 % Neutrophils # (Auto) 6.88 1.4-6.5 K/uL Lymphocytes # (Auto) 1.55 1.2-3.4 K/uL Monocytes # (Auto) 0.58 0.11-0.59 K/uL Eosinophils # (Auto) 0.05 0-0.5 K/uL Basophils # (Auto) 0.03 0-0.2 K/uL RDW Standard Deviation 44.5 36.4-46.3 fL RDW Coefficient of Variation 13.6 11.5-14.5 % Immature Granulocyte % (Auto) 0.1 % Immature Granulocyte # (Auto) 0.01 0.00-0.02 K/uL Prothrombin Time 10.0 9.0-12.0 SECONDS Prothromb Time International Ratio 1.0 0.9-1.1 Activated Partial Thromboplast Time 28.2 21.0-31.0 SECONDS Partial Thromboplastin Ratio 1.1 Sodium Level 141 136-145 mmol/L Potassium Level 3.8 3.5-5.1 mmol/L Chloride Level 104 98-107 mmol/L Carbon Dioxide Level 30 21-32 mmol/L Anion Gap 7.0 3-11 mmol/L Blood Urea Nitrogen 16 7-18 mg/dl Creatinine 1.25 0.60-1.40 mg/dl Est Creatinine Clear Calc Drug Dose 70.7 ml/min Estimated GFR () 73.1 Estimated GFR (Non- 63.1 BUN/Creatinine Ratio 12.7 10-20 Random Glucose 95 70-99 mg/dl Calcium Level 9.8 8.5-10.1 mg/dl Total Bilirubin 0.8 0.2-1 mg/dl Aspartate Amino Transf (AST/SGOT) 20 15-37 U/L Alanine Aminotransferase (ALT/SGPT) 29 12-78 U/L Alkaline Phosphatase 117 45-117 U/L Troponin I < 0.015 0-0.045 ng/ml Total Protein 8.6 6.4-8.2 gm/dl Albumin 4.5 3.4-5.0 gm/dl Globulin 4.1 2.5-4.0 gm/dl Albumin/Globulin Ratio 1.1 0.9-2 Lipase 701 73-393 U/L Gastric Fluid pH 2 Gastric Fluid Occult Blood POS NEG Diagnostic Radiology Patient Name: JULIA AKHTAR Unit Number: [id number] Dictated: 01/18/181931 Transcribed: 01/18/181931 MS Printed Date/Time: [~ rep prt dt]/[~ rep prt tm] [~ rep ct labl] - [~ rep ct ivnm] [facility] Radiology Department [place] [id number] Dictated: 01/18/181931 Transcribed: 01/18/181931 MS Printed Date/Time: [~ rep prt dt]/[~ rep prt tm] [~ rep ct labl] - [~ rep ct ivnm] CHEST ONE VIEW PORTABLE CLINICAL HISTORY: ABDOMINAL PAIN/GI pain COMPARISON STUDY: 10/30/2016 FINDINGS: Fixed hiatal hernia. Lungs otherwise are clear.-The diaphragms are smooth. No significant cardiac enlargement. IMPRESSION: Hiatal hernia. Otherwise negative study. The above report was generated using voice recognition software. It may contain grammatical, syntax or spelling errors. Electronically signed by: Negrito Haile M.D. 01/18/2018 7:33 PM Dictated Date/Time: 01/18/2018 7:32 PM The status of this report is Signed. Draft = Not yet reviewed or approved by Radiologist. Signed = Reviewed and approved by Radiologist. <AttendingPhy></AttendingPhy> <FamilyPhy>No Doctor, Assigned</FamilyPhy> < PrimaryPhy>No Doctor, Assigned</PrimaryPhy> <UnitNumber>[id number]</UnitNumber> <VisitNumber>[id number]</VisitNumber> <PatientName>JULIA AKHTAR</ PatientName> <DateOfBirth>1960</DateOfBirth> <Location>[facility]</Location> < ServiceDate>01/18/18</ServiceDate> <MNE>ESINDI</MNE> <OrderingPhy>Brown Rodriguez M.D.</OrderingPhy> <OrderingPhyMNE>f rep ord dr suarez</OrderingPhyMNE> < DictatingPhyMNE>f rep dict dr suarez</DictatingPhyMNE> <CCListMNE>f rep ct mne</ CCListMNE> <AdmittingPhyMNE>f pt admit dr suarez</AdmittingPhyMNE> <AttendingPhyMNE >f pt attend dr suarez</AttendingPhyMNE> <ConsultingPhyMNE>f pt consult dr suarez</ConsultingPhyMNE> <FamilyPhyMNE>f pt fam dr suarez</FamilyPhyMNE> <OtherPhyMNE>f pt other dr suarez</OtherPhyMNE> < PrimaryPhyMNE>f pt prim care dr suarez</PrimaryPhyMNE> <ReferringPhyMNE>f pt referring dr suarez</ReferringPhyMNE> Patient Name: JULIA AKHTAR Unit Number: [id number] Dictated: 01/18/182021 Transcribed: 01/18/182021 MS Printed Date/Time: [~ rep prt dt]/[~ rep prt tm] [~ rep ct labl] - [~ rep ct ivnm] [facility] [place] [address] Dictated: 01/18/182021 Transcribed: 01/18/182021 MS Printed Date/Time: [~ rep prt dt]/[~ rep prt tm] [~ rep ct labl] - [~ rep ct ivnm] [~ rep ct add3]] ABD/PELVIS IV CONTRAST ONLY CT DOSE: 709.32 mGy.cm HISTORY: Pain. Obstruction. ABD PAIN, POSS OBSTRUCTION, IV CONTRAST ONLY TECHNIQUE: Multiaxial CT images of the abdomen and pelvis were performed following the use of intravenous contrast. A dose lowering technique was utilized adhering to the principles of ALARA. COMPARISON STUDY: 10/30/2016 FINDINGS: Mildly progressive interstitial change left base possibly inflammatory. Right base is clear. Fixed hiatal hernia increased in volume from the prior study. The bulk of the stomach is now superior to the diaphragmatic hiatus. The liver spleen and pancreas enhance uniformly. The kidneys enhance uniformly. Prior cholecystectomy. Bowel pattern is suggestive of a mild nonobstructive ileus. Scattered colonic diverticuli with no evidence for diverticulitis. Several repaired anterior abdominal wall hernias. No evidence for hernia recurrence. Colonic pattern is nonobstructive. No evidence for acute diverticulitis. IMPRESSION: 1. Considerable increase in size of a hiatal hernia with the bulk of the stomach now superior to the diaphragm. 2. Prior cholecystectomy. 3. Mild small bowel ileus with no evidence for an obstructive pattern. 4. Scattered colonic diverticuli with no evidence for diverticulitis. 5. Interstitial infiltrate left base The above report was generated using voice recognition software. It may contain grammatical, syntax or spelling errors. Electronically signed by: Negrito Haile M.D. 01/18/2018 8:31 PM Dictated Date/Time: 01/18/2018 8:22 PM The status of this report is Signed. Draft = Not yet reviewed or approved by Radiologist. Signed = Reviewed and approved by Radiologist. <AttendingPhy></AttendingPhy> <FamilyPhy>No Doctor, Assigned</FamilyPhy> < PrimaryPhy>No Doctor, Assigned</PrimaryPhy> <UnitNumber>[id number]</UnitNumber> <VisitNumber>[id number]</VisitNumber> <PatientName>KRUPAJULIA VIRAMONTES</ PatientName> <DateOfBirth>1960</DateOfBirth> <Location>[facility]</Location> < ServiceDate>01/18/18</ServiceDate> <MNE>ESINDI</MNE> <OrderingPhy>Brown Rodriguez M.D.</OrderingPhy> <OrderingPhyMNE>f rep ord dr suarez</OrderingPhyMNE> < DictatingPhyMNE>f rep dict dr suarez</DictatingPhyMNE> <CCListMNE>f rep ct daniela</ CCListMNE> <AdmittingPhyMNE>f pt admit dr suarez</AdmittingPhyMNE> <AttendingPhyMNE >f pt attend dr suarez</AttendingPhyMNE> <ConsultingPhyMNE>f pt consult dr suarez</ConsultingPhyMNE> <FamilyPhyMNE>f pt fam dr suarez</FamilyPhyMNE> <OtherPhyMNE>f pt other dr suarez</OtherPhyMNE> < PrimaryPhyMNE>f pt prim care dr suarez</PrimaryPhyMNE> <ReferringPhyMNE>f pt referring dr suarez</ReferringPhyMNE> EKG EKG shows normal sinus rhythm at 64 bpm, there are no acute ST-T changes. Impression Assessment and Plan 57 yo M hx of Hiatal hernia, cholecystectomy, SBO s/p laparotomy and lysis of adhesions (11/07) presenting w/ Intermittent abdominal pain, N/V Abdominal pain, N/V, History of Hiatal Hernia - Admit to Med/Surg - Hx Hiatal hernia s/p repair - likely secondary to recurrence of Hiatal Hernia - CT Abdomen (01/18): -Considerable increase in size of a hiatal hernia with the bulk of the stomach now superior to the diaphragm. -Mild small bowel ileus with no evidence for an obstructive pattern. -Interstitial infiltrate left base - NPO, Started Protonix - Seen by General Surgery, decided that case more appropriate for Thoracic Surgery - Consulted Thoracic Surgery (Charmaine), Barium swallow ordered as recommended Possible Pneumonia - afebrile, no leukocytosis - CT showing Interstitial infiltrate left base - ddx aspiration given n/v vs CAP - Start Zosyn IV DVT PPX: SCD's Code status: Full Resuscitation Intractable abdominal pain, nausea and vomiting/worsening hiatal hernia/ hematemesis/ileus-- Admit to medical surgical floor. Continue Protonix drip begun in the emergency department. Patient initially underwent surgical repair by Dr. Lehman last year. Dr. Lehman suggested that patient would need a cardiothoracic approach, and thus Dr. Montano has been consulted, and will see the patient in the morning. Zofran 4 mg IV every 6 hours as needed. N.p.o. status. Left lower lobe pneumonia/presumptive aspiration-- Was placed on Zosyn IV, to cover pneumonia and abdominal process above. Hold all nutraceuticals: Co-Q10, garlic, Mag-Ox, multivitamin, fish oil, turmeric, vitamin D and K and omega 7. Advanced Directives Existing Advance Directive: No Existing Living Will: No Existing Power of [employer]: No Resuscitation Status VTE Prophylaxis Will order VTE Prophylaxis: Yes Social Service Consult None Apply Note Total Time: Critical Care 30 - 74 minutes Resident Tracking Resident Involvement: Resident Care Provided Care Provided: Adult Hospital Medicine
[2018-01-18] MEDS ORDERED: MoRPHine SULFATE 4 MG/ML 1 ML CARP\\VIAL IM PRN (23:00)
[2018-01-18] MEDS ORDERED: POLYETHYLENE (MIRALAX) 17 GM PACK PO PRN (23:00)
[2018-01-18] MEDS ORDERED: ACETAMINOPHEN 325 MG TAB PO PRN (23:00)
[2018-01-18] MEDS ORDERED: ONDANSETRON INJ 2 MG/ML 2 ML VIAL IV PRN (23:00)
[2018-01-18] MEDS ORDERED: MAGNESIUM HYDROXIDE SUSP 30 ML UDC PO PRN (23:00)
[2018-01-18] MEDS ORDERED: ALUMINUM/MAGNESIUM/SIMETH (MAALOX MAX) 30 ML UDC PO PRN (23:00)
[2018-01-18] MEDS ORDERED: PROCHLORPERAZINE INJ 10 MG in SYRINGE 8 ML IV PRN (23:00)
[2018-01-18] MEDS ORDERED: PROCHLORPERAZINE 5 MG/ML 2 ML VIAL ONE (23:02)
[2018-01-19] MEDS ORDERED: PIPERACILL/TAZOBAC CONSULT ACTIVE PRN (01:00)
[2018-01-19 01:25] VITALS: BP 139/73; PULSE 71; TEMP 36.6; O2SAT 94
[2018-01-19 01:36] VITALS: BMI 25.8
[2018-01-19] MEDS ORDERED: PIPERACILL/TAZOBAC IV 3.375 GM in DEXTROSE 5% 100ML 100 ML IV SCH (02:00)
[2018-01-19] MEDS: PANTOprazole INJ 40 MG in DEXTROSE 5% 100ML 100 ML IV SCH ×5 (03:15→23:20)
[2018-01-19] MEDS: D5W AND NSS 1,000 ML IV SCH ×3 (06:21→22:28)
[2018-01-19 06:45] LABS: BASO % 0.3 %; BASO ABS # 0.03 K/uL (0-0.2); EOS % 0.2 %; EOS ABS # 0.02 K/uL (0-0.5); HEMATOCRIT 43.8 % (42-52); HEMOGLOBIN 14.9 g/dL (14.0-18.0); IG# 0.01 K/uL (0.00-0.02); MEAN CELL VOLUME 92.8 fL (80-100); MEAN CORPUSCULAR HEMOGLOBIN 31.6 pg (25-34); MEAN PLATELET VOLUME 10.1 fL (7.4-10.4); MONO ABS # 0.69 K/uL (0.11-0.59); NEUT % 76.4 %; PLATELET COUNT 230 K/uL (130-400); RED CELL DISTRIBUTION WIDTH CV 13.7 % (11.5-14.5); WHITE BLOOD COUNT 8.65 K/uL (4.8-10.8)
[2018-01-19 06:50] VITALS: BP 149/81; PULSE 87; TEMP 36.5; O2SAT 95
[2018-01-19 07:29] LABS: CREATININE 1.26 mg/dl (0.60-1.40); POTASSIUM 4.3 mmol/L (3.5-5.1)
[2018-01-19] MEDS: PIPERACILL/TAZOBAC IV 3.375 GM in NSS 100ML IV SCH ×3 (08:35→23:20)
--- NOTE | 2018-01-19 10:06 | DIAGNOSTIC IMAGING REPORT ---
(BARIUM SWALLOW) ESOPHAGUS CLINICAL HISTORY: 57 years-old Male presenting with hiatal hernia, history of repair, epigastric pain and hematemesis. TECHNIQUE: A standard air contrast barium esophagram is performed. Multiple spot images of the esophagus are acquired both upright and prone. COMPARISON: Chest CT from 01/19/2018. FINDINGS: The patient was able to ingest barium though experiencing significant nausea. Normal mucosal pattern. No evidence of intrinsic or extrinsic mass lesion. No aspiration observed. The gastroesophageal junction was located normally at the level of the diaphragm. The gastroesophageal junction distended normally. Filling of the proximal stomach was located below the diaphragm, the remaining stomach to the level of the antrum was located above the diaphragm. No contrast was observed transiting through the pylorus. Mild gastric distention evident. Fluoroscopy dosage (mGy): Not available. Fluoroscopy time: 1.9 minutes. Number of fluoroscopic spot images: 26. IMPRESSION: Findings consistent with large paraesophageal hernia. Obstruction is difficult to exclude given the absence of contrast transiting through the pylorus. No gross evidence of volvulus. The report will be called/faxed according to standard departmental protocol. Electronically signed by: Pranay Singh M.D. 01/19/2018 10:04 AM Dictated Date/Time: 01/19/2018 10:02 AM
--- NOTE | 2018-01-19 10:24 | DIAGNOSTIC IMAGING REPORT ---
CT SCAN OF THE CHEST WITHOUT IV CONTRAST CLINICAL HISTORY: Hiatal hernia. Hematemesis. COMPARISON STUDY: Chest x-ray dated 01/18/2018. TECHNIQUE: CT scan of the thorax was performed from the thoracic inlet to the upper abdomen. Images are reviewed in the axial, sagittal, and coronal planes. IV contrast was not administered for this examination as per the referring clinician. A dose lowering technique was utilized adhering to the principles of ALARA. CT DOSE: 487.33 mGy.cm FINDINGS: Thyroid: Imaged portions of the thyroid gland are normal in size and attenuation. Thoracic aorta: There is mild atherosclerotic calcification of the thoracic aorta, which is normal in caliber and demonstrates standard 3-vessel arch anatomy. Heart: The heart is normal in size and without pericardial effusion. There are scattered coronary artery calcifications. Lungs and pleural spaces: There are numerous foci of tree-in-bud nodularity present throughout the lower lobes, left greater than right. Minimal tree-in-bud changes seen in the right upper lobe. Trace pleural effusions are identified, left larger than right scattered calcified granulomas are observed. Atelectasis is at the left lung base related to the large hiatal hernia. The trachea and central airways are patent. There is a 7 mm right upper lobe pulmonary nodule seen on image #114. Mediastinum: There is no mediastinal lymphadenopathy. [place]: Not well assessed without IV contrast. There are small calcified left hilar nodes. Axillae: There is no axillary lymphadenopathy. Upper abdomen: There is a large paraesophageal hiatal hernia, with the majority the stomach located in the thoracic cavity. Both of the intrathoracic and intra-abdominal components of the stomach large air-fluid levels. There is nonspecific stranding and fluid identified in the fat around the intrathoracic component of the hiatal hernia. Cholecystectomy clips are noted. Skeletal structures: No lytic or blastic bony lesions are seen. IMPRESSION: 1. There is a large paraesophageal hiatal hernia, with the majority of the stomach located in the thoracic cavity. Note that this may place the patient at risk for gastric volvulus. 2. There is mild nonspecific stranding and trace fluid identified in the fat around the intrathoracic component of the hiatal hernia. 3. There are trace pleural effusions, left larger than right. 4. Extensive tree-in-bud nodularity the seen throughout the lower lobes, and there is minimal tree-in-bud change identified in the right upper lobe. The appearance suggests a nonspecific infectious/inflammatory pneumonitis. This could potentially be related to aspiration given the lower hiatal hernia. Clinical correlation will be required. 5. A 7 mm noncalcified pulmonary nodule is seen in the right upper lobe. Follow-up is recommended as per the Fleischner criteria. See below. 6. Additional findings as above. Please refer to below summary of Fleischner criteria recommendations for follow-up of incidental CT nodules (Shiv Barrios, Guidelines for management of small pulmonary nodules detected on CT scans: A statement from the Fleischner Society, Radiology 237: [id number].) SOLID NODULES Solitary nodule size: <6 mm * low risk patients: no follow-up needed * high risk patients: optional CT at 12 months Solitary nodule size: 6-8 mm * low risk patients: follow-up at 6-12 months, then consider further follow-up at 18-24 months * high risk patients: initial follow-up CT at 6-12 months and then at 18-24 months if no change Solitary nodule size: >8 mm * either low or high risk patients - consider follow-up CT at 3 months, and/or CT-PET, and/or biopsy Multiple nodules size: <6 mm * low risk patients: no routine follow-up * high risk patients: optional CT at 12 months Multiple nodules size: 6-8 mm * low risk patients: follow-up at 3-6 months, then consider further follow-up at 18-24 months * high risk patients: follow-up at 3-6 months, then at 18-24 months if no change Multiple nodules size: >8 mm * low risk patients: follow-up at 3-6 months, then consider further follow-up at 18-24 months * high risk patients: follow-up at 3-6 months, then at 18-24 months if no change Note: newly detected indeterminate nodule in persons 35 years of age or older. * low risk patients: minimal or absent history of smoking and/or other known risk factors * high risk patients: history of smoking or of other known risk factors (e.g. first degree relative with lung cancer, or exposure to asbestos, radon, uranium) * if a nodule up to 8 mm is partly solid or is ground glass further follow-up is required after 24 months to exclude possible slow growing adenocarcinoma (JESSENIA) SUBSOLID NODULES Solitary pure ground-glass nodule * nodule size <6 mm - no CT follow-up required * nodule size >=6 mm - follow-up CT at 6-12 months, then every 2 years until 5 years Solitary part-solid nodule * nodule size <6 mm - no CT follow-up required * nodule size >=6 mm - follow-up CT at 3-6 months. If unchanged, and solid component remains <6 mm, then annual follow-up for 5 years Multiple subsolid nodules * nodule size <6 mm - follow-up CT at 3-6 months, consider further follow-up at 2 and 4 years if stable * nodule size >=6 mm - follow-up CT at 3-6 months, subsequent management based on the most suspicious nodule(s) Electronically signed by: Brown Valerio M.D. 01/19/2018 10:23 AM Dictated Date/Time: 01/19/2018 10:15 AM
--- NOTE | 2018-01-19 12:26 | Family Medicine Progress Note ---
Progress Note Date of Service January 19, 2018. Subjective Pt evaluation today including: conversation w/ patient, physical exam, chart review, lab review Pain: 6-7/10 abdominal pain PO Intake: clear diet Voiding: no voiding problems This AM pt reported 6-7/10 abdominal pain associated with nausea. No vomiting since last night. Reports symptoms x 1 year that gradually worsened 1 month ago. Constitutional: No fever Respiratory: No shortness of breath Cardiovascular: No chest pain Abdomen: + pain, + nausea, + vomiting Male : No dysuria Medications Current Inpatient Medications Medications (Trade) Dose Ordered Sig/Blayne Route Start Time Stop Time Status Last Admin Dose Admin Ioversol (Optiray 320) 100 ml UD PRN IV 01/18/18 19:15 01/22/18 19:14 Acetaminophen (Tylenol Tab) 650 mg Q4H PRN PO 01/18/18 23:00 02/17/18 22:59 Al Hydrox/Mg Hydrox/Simethicone (Maalox Max Susp) 15 ml Q4H PRN PO 01/18/18 23:00 02/17/18 22:59 Magnesium Hydroxide (Milk Of Magnesia Susp) 30 ml Q6H PRN PO 01/18/18 23:00 02/17/18 22:59 Polyethylene (Miralax Powder Packet) 17 gm DAILY PRN PO 01/18/18 23:00 02/17/18 22:59 Prochlorperazine Edisylate 10 mg/ Syringe 10 ml @ 5 mls/min Q6H PRN IV 01/18/18 23:00 02/17/18 22:59 Morphine Sulfate (MoRPHine SULFATE INJ) 4 mg Q4H PRN IM 01/18/18 23:00 02/01/18 22:59 Miscellaneous Information (Consult) 1 ea UD PRN N/A 01/19/18 01:00 02/18/18 00:59 Piperacillin Sod/ Tazobactam Sod 3.375 gm/Sodium Chloride 115 ml @ 28.75 mls/ hr Q8H IV 01/19/18 08:00 01/26/18 07:59 01/19/18 08:35 28.75 MLS/HR Pantoprazole Sodium 40 mg/ Dextrose 110 ml @ 20 mls/hr Q5H IV 01/19/18 03:45 02/18/18 03:44 01/19/18 13:45 20 MLS/HR Dextrose/Sodium Chloride 1,000 ml @ 125 mls/hr Q8H IV 01/19/18 06:15 02/18/18 06:14 01/19/18 13:45 125 MLS/HR Ondansetron HCl (Zofran Inj) 4 mg Q6H IV 01/19/18 17:00 02/17/18 22:59 Objective Vital Signs Date Time Temp Pulse Resp B/P (MAP) Pulse Ox O2 Delivery O2 Flow Rate FiO2 01/19/18 14:51 37.3 78 18 137/71 (93) 95 Room Air 01/19/18 07:10 Room Air 01/19/18 06:50 36.5 87 19 149/81 (103) 95 Room Air 01/19/18 01:48 Room Air 01/19/18 01:36 Room Air 01/19/18 01:25 36.6 71 16 139/73 (95) 94 Room Air 01/19/18 00:19 98 18 144/87 96 01/18/18 22:30 67 18 120/86 97 Room Air 01/18/18 21:31 69 18 151/87 98 Nasal Cannula 2.0 01/18/18 20:51 72 01/18/18 20:30 67 18 126/76 97 Nasal Cannula 2.0 01/18/18 20:10 75 18 128/85 99 Nasal Cannula 2.0 01/18/18 19:30 63 18 142/89 96 Room Air 01/18/18 19:20 70 18 124/74 96 Room Air 01/18/18 18:51 36.7 77 16 131/74 98 Room Air Physical Exam General Appearance: + moderate distress (appeared uncomfortable changing position due to pain and nausea) Eyes: normal inspection Neck: supple Respiratory/Chest: lungs clear, normal breath sounds Cardiovascular: regular rate, rhythm, no murmur Abdomen: normal bowel sounds, soft, + tenderness (epigastric) Extremities: non-tender, no pedal edema Neurologic/Psychiatric: alert Skin: warm/dry Laboratory Results 01/19/18 06:22 Red Blood Count 4.72, Mean Corpuscular Volume 92.8, Mean Corpuscular Hemoglobin 31.6, Mean Corpuscular Hemoglobin Concent 34.0, Mean Platelet Volume 10.1, Neutrophils (%) (Auto) 76.4, Lymphocytes (%) (Auto) 15.0, Monocytes (%) (Auto) 8.0, Eosinophils (%) (Auto) 0.2, Basophils (%) (Auto) 0.3, Neutrophils # (Auto) 6.60, Lymphocytes # (Auto) 1.30, Monocytes # (Auto) 0.69, Eosinophils # (Auto) 0.02, Basophils # (Auto) 0.03 01/19/18 06:22 Test 01/18/18 19:09 01/18/18 19:15 01/19/18 06:22 Prothrombin Time 10.0 SECONDS (9.0-12.0) Prothromb Time International Ratio 1.0 (0.9-1.1) Activated Partial Thromboplast Time 28.2 SECONDS (21.0-31.0) Partial Thromboplastin Ratio 1.1 Total Bilirubin 0.8 mg/dl (0.2-1) Aspartate Amino Transf (AST/SGOT) 20 U/L (15-37) Alanine Aminotransferase (ALT/SGPT) 29 U/L (12-78) Alkaline Phosphatase 117 U/L (45-117) Troponin I < 0.015 ng/ml (0-0.045) Total Protein 8.6 gm/dl (6.4-8.2) Albumin 4.5 gm/dl (3.4-5.0) Globulin 4.1 gm/dl (2.5-4.0) Albumin/Globulin Ratio 1.1 (0.9-2) Lipase 701 U/L (73-393) Gastric Fluid pH 2 Gastric Fluid Occult Blood POS (NEG) White Blood Count 8.65 K/uL (4.8-10.8) Red Blood Count 4.72 M/uL (4.7-6.1) Hemoglobin 14.9 g/dL (14.0-18.0) Hematocrit 43.8 % (42-52) Mean Corpuscular Volume 92.8 fL (80-100) Mean Corpuscular Hemoglobin 31.6 pg (25-34) Mean Corpuscular Hemoglobin Concent 34.0 g/dl (32-36) Platelet Count 230 K/uL (130-400) Mean Platelet Volume 10.1 fL (7.4-10.4) Neutrophils (%) (Auto) 76.4 % Lymphocytes (%) (Auto) 15.0 % Monocytes (%) (Auto) 8.0 % Eosinophils (%) (Auto) 0.2 % Basophils (%) (Auto) 0.3 % Neutrophils # (Auto) 6.60 K/uL (1.4-6.5) Lymphocytes # (Auto) 1.30 K/uL (1.2-3.4) Monocytes # (Auto) 0.69 K/uL (0.11-0.59) Eosinophils # (Auto) 0.02 K/uL (0-0.5) Basophils # (Auto) 0.03 K/uL (0-0.2) RDW Standard Deviation 47.0 fL (36.4-46.3) RDW Coefficient of Variation 13.7 % (11.5-14.5) Immature Granulocyte % (Auto) 0.1 % Immature Granulocyte # (Auto) 0.01 K/uL (0.00-0.02) Anion Gap 5.0 mmol/L (3-11) Est Creatinine Clear Calc Drug Dose 70.2 ml/min Estimated GFR () 72.4 Estimated GFR (Non- 62.5 BUN/Creatinine Ratio 12.7 (10-20) Calcium Level 9.0 mg/dl (8.5-10.1) Assessment and Plan 57 yoM with hx of hiatal hernia w/t repair, cholecystectomy, SBO s/p laparotomy and lysis of adhesions (11/07) admitted for worsening Intermittent abdominal pain , nausea and vomiting. Abdominal pain, N/V: History of Hiatal Hernia - Hx of Hiatal hernia s/p repair - CT Abdomen (01/18): -Considerable increase in size of hiatal hernia with the bulk of the stomach now superior to the diaphragm. -Mild small bowel ileus with no obstructive pattern. - CT chest: large paraesophageal hiatal hernia, majority of stomach located in the thoracic cavity - Continue Protonix 40mg IV Q5H - Continue Zofran 4mg IV Q6H - Started on Clear liquid diet - Consulted General Surgery - more appropriate for Thoracic Surgery - Consulted Thoracic Surgery (Charmaine): - Barium swallow: large paraesophageal hernia; obstruction cannot be excluded. No evidence of volvulus. - Surgery on Possible Pneumonia - afebrile, no leukocytosis, no focal lung findings - Abdominal CT showing Interstitial infiltrate left base - CT chest: lower lobes - like aspiration induced pneumonitis; trace pleural effusion L > R; 7mm noncalcified nodule RUL - ddx aspiration given n/v vs CAP - Continue Zosyn IV (provides abdominal and pulmonary coverage) DVT PPX: SCD's Code: Full Dispo: pending diet advancement and tolerance and improvement in abdominal pain , n/v s/p surgery Resident Physician Supervision Note: I interviewed and examined the patient. Discussed with Dr. Benavides and agree with findings and plan as documented in the note. Any exceptions or clarifications are listed here: None Documented By: Lion Madrigal feeling ok but hasn't had anything PO d/w thoracic multiple times today viatls noted nad breathing unlabored no pallor or icterus intractable nausea/vomiting related to hiatal hernia - for surgical repair, symptomatic care for now Resident Involvement: Resident Care Provided Care Provided: Adult Hospital Medicine
[2018-01-19 14:51] VITALS: BP 137/71; PULSE 78; TEMP 37.3; O2SAT 95
[2018-01-19] MEDS: ONDANSETRON INJ 2 MG/ML 2 ML VIAL IV SCH ×2 (16:35→22:26)
[2018-01-19] MEDS ORDERED: MoRPHine SULFATE 4 MG/ML 1 ML CARP\\VIAL IV PRN ×3 (17:45→20:30)
[2018-01-19] MEDS: MoRPHine SULFATE 4 MG/ML 1 ML CARP\\VIAL IV PRN (20:27)
--- NOTE | 2018-01-19 22:05 | SURGICAL CONSULTATION ---
DATE OF CONSULTATION: 01/19/2018 REASON FOR CONSULTATION: Recurrent paraesophageal hernia. HISTORY OF PRESENT ILLNESS: This is a 57-year-old relatively healthy male who has a history of a large diaphragmatic hernia repaired about [address] Dave Lehman laparoscopically. Dr. Lehman performed a hiatal hernia repair and did a gastropexy. Unfortunately, this recurred. I looked at films for quite a bit of time after that, did not see evidence of this. At any rate, the patient came back about 8 months later with a small-bowel obstruction which was repaired with a small laparotomy by Dr. Trevon Piña. The patient has noted increasing abdominal pain in his epigastric area which he states has been present for a few months. It is intermittent. He had some abdominal pain starting in the morning of 02/17/2018 and was nauseated. He states that vomiting does relieve his pain. He had no fever, no chills. He had been moving his bowels. He has lost no weight. I was asked to evaluate him when his CT scan showed he had much of his stomach in his chest. I ordered a barium swallow as well as a formal CT of his chest and it could be seen that his gastroesophageal junction is actually at the diaphragmatic hiatus. Patient does have much of his stomach without evidence of torsion. I have been asked to evaluate this and comment on it from a thoracic surgery standpoint. PAST MEDICAL HISTORY: 1. Paraesophageal hernia. 2. Inguinal hernia in the past. 3. Small-bowel obstruction in the past. PAST SURGICAL HISTORY: 1. Right inguinal herniorrhaphy. 2. Laparotomy with lysis of adhesions for small-bowel obstruction. 3. Laparoscopic repair of incarcerated hiatal hernia. MEDICATIONS: Levitra. ALLERGIES: No known drug allergies. SOCIAL HISTORY: Patient has never smoked cigarettes. He is and lives with his . He is employed. FAMILY HISTORY: His children are healthy as are his grandchildren. REVIEW OF SYSTEMS: Patient has had no weight loss surprisingly enough. He has had no fever, no chills. He does have some coughing, but no shortness of breath. He denies chest pain per se, but does have epigastric pain with some nausea and vomiting. He denies diarrhea, constipation, hematochezia. His stated she felt there was some blood in his initial vomitus in the ER. He denies any peripheral edema. He has had no joint effusions. He has had no skin breakdown. He denies any visual or auditory symptoms. He has had no palpitations. He denies productive cough. Neurologically, he has had no symptoms. PHYSICAL EXAMINATION: GENERAL: This is a well-developed, well-nourished male who stands 6 feet tall and weighs 190 pounds. HEENT: His extraocular movements are intact. Pupils are equal, round, and reactive. Sclerae are anicteric. His oral mucosa is moist. His tongue is midline. He has no nasolabial flattening. He has no oropharyngeal lesions. NECK: Supple. He has no supraclavicular or cervical lymphadenopathy, neck vein distention, or thyromegaly. He has no carotid bruits. LUNGS: Clear. HEART: He has a regular rate and rhythm of his heart. ABDOMEN: Soft, nontender with well-healed laparoscopic port sites. He has a well-healed lower infraumbilical incision. EXTREMITIES: He has no peripheral edema. He has excellent peripheral pulses. He has no joint effusions. NEUROLOGIC: Completely intact. ASSESSMENT AND PLAN: Recurrent paraesophageal hernia. I had a long discussion with the patient and his . I also discussed this with Dr. Lehman. One approach would be to do a left thoracotomy and offer him a Belsey Negrito IV repair, but he is really not complaining of reflux and his GE junction is in the correct position. As he has not had a fundoplication, I believe that a re-repair transabdominally would be a better approach. I am going to do this with a robot-assisted laparoscopic approach. We will place a patch on his hiatal repair.
[2018-01-19 23:45] VITALS: BP 132/74; PULSE 79; TEMP 36.5; O2SAT 95
[2018-01-20] MEDS: MoRPHine SULFATE 4 MG/ML 1 ML CARP\\VIAL IV PRN ×4 (01:10→20:22)
[2018-01-20] MEDS: ONDANSETRON INJ 2 MG/ML 2 ML VIAL IV SCH ×4 (04:24→22:27)
[2018-01-20] MEDS: PANTOprazole INJ 40 MG in DEXTROSE 5% 100ML 100 ML IV SCH ×4 (04:24→19:28)
--- NOTE | 2018-01-20 07:07 | SURGERY PROGRESS NOTE ---
DATE: 01/20/2018 Mr. Colvin is seen this morning on 01/20/2018. Mr. 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 He has no evidence of any ischemia. I am going to repair this with a robotic laparoscopic assisted approach tomorrow and we will patch him. We had a long talk about this. His GE junction is at the esophageal hiatus. He does not really give symptoms of reflux. At this point, I think that simply repairing this and reinforcing the repair with a patch would be helpful. In addition, Mr. Colvin is a work out enthusiast. He has been lifting weights quite heavily in the last several months. At any rate, we will do a repair tomorrow. He appears to be quite stable now with no fevers and although he is still having some vomiting. White count and a chemistry panel was pending, but his white count from yesterday was only 8650. His vital signs were stable. [facility]
[2018-01-20 07:32] VITALS: BP 132/77; PULSE 69; TEMP 36.5; O2SAT 94
[2018-01-20] MEDS: PIPERACILL/TAZOBAC IV 3.375 GM in NSS 100ML IV SCH ×2 (07:39→15:56)
[2018-01-20 07:41] LABS: BASO % 0.2 %; BASO ABS # 0.02 K/uL (0-0.2); EOS % 0.3 %; EOS ABS # 0.03 K/uL (0-0.5); HEMOGLOBIN 14.6 g/dL (14.0-18.0); IG# 0.02 K/uL (0.00-0.02); MEAN CELL VOLUME 92.5 fL (80-100); MEAN CORPUSCULAR HEMOGLOBIN 31.4 pg (25-34); MEAN PLATELET VOLUME 10.2 fL (7.4-10.4); MONO % 7.9 %; MONO ABS # 0.87 K/uL (0.11-0.59); NEUT % 81.4 %; NEUT ABS # 8.91 K/uL (1.4-6.5); PLATELET COUNT 219 K/uL (130-400); RED CELL DISTRIBUTION WIDTH CV 13.7 % (11.5-14.5); RED CELL DISTRIBUTION WIDTH SD 46.6 fL (36.4-46.3); WHITE BLOOD COUNT 10.95 K/uL (4.8-10.8)
[2018-01-20 08:18] LABS: CALCIUM 8.4 mg/dl (8.5-10.1); CREATININE 1.14 mg/dl (0.60-1.40); POTASSIUM 3.8 mmol/L (3.5-5.1)
[2018-01-20] MEDS: D5W AND NSS 1,000 ML IV SCH ×2 (08:59→16:33)
[2018-01-20] MEDS: LACTOBACILLUS ACIDOPHILUS (FLORANEX) TAB PO SCH ×2 (12:10→17:45)
--- NOTE | 2018-01-20 12:36 | Family Medicine Progress Note ---
Progress Note Date of Service January 20, 2018. Subjective Pt evaluation today including: conversation w/ patient, physical exam, chart review, lab review Pain: reports 3/6 abdominal pain this AM PO Intake: clear diet - persistent n/v with eating Voiding: no voiding problems This AM pt reported abdominal pain 3/6. Not tolerating clear diet due to nausea/ vomiting. Last vomited at 04:30 today. Otherwise asymptomatic. Constitutional: No fever Respiratory: No shortness of breath Cardiovascular: No chest pain Abdomen: + pain, + nausea, + vomiting Male : No dysuria Medications Current Inpatient Medications Medications (Trade) Dose Ordered Sig/Blayne Route Start Time Stop Time Status Last Admin Dose Admin Ioversol (Optiray 320) 100 ml UD PRN IV 01/18/18 19:15 01/22/18 19:14 Acetaminophen (Tylenol Tab) 650 mg Q4H PRN PO 01/18/18 23:00 02/17/18 22:59 Al Hydrox/Mg Hydrox/Simethicone (Maalox Max Susp) 15 ml Q4H PRN PO 01/18/18 23:00 02/17/18 22:59 Magnesium Hydroxide (Milk Of Magnesia Susp) 30 ml Q6H PRN PO 01/18/18 23:00 02/17/18 22:59 Polyethylene (Miralax Powder Packet) 17 gm DAILY PRN PO 01/18/18 23:00 02/17/18 22:59 Prochlorperazine Edisylate 10 mg/ Syringe 10 ml @ 5 mls/min Q6H PRN IV 01/18/18 23:00 02/17/18 22:59 Miscellaneous Information (Consult) 1 ea UD PRN N/A 01/19/18 01:00 02/18/18 00:59 Piperacillin Sod/ Tazobactam Sod 3.375 gm/Sodium Chloride 115 ml @ 28.75 mls/ hr Q8H IV 01/19/18 08:00 01/26/18 07:59 01/20/18 07:39 28.75 MLS/HR Pantoprazole Sodium 40 mg/ Dextrose 110 ml @ 20 mls/hr Q5H IV 01/19/18 03:45 02/18/18 03:44 01/20/18 14:45 20 MLS/HR Dextrose/Sodium Chloride 1,000 ml @ 125 mls/hr Q8H IV 01/19/18 06:15 02/18/18 06:14 01/20/18 08:59 125 MLS/HR Ondansetron HCl (Zofran Inj) 4 mg Q6H IV 01/19/18 17:00 02/17/18 22:59 01/20/18 10:25 4 MG Morphine Sulfate (MoRPHine SULFATE INJ) 4 mg Q2H PRN IV 01/19/18 20:15 02/01/18 22:59 01/20/18 10:22 4 MG Morphine Sulfate (MoRPHine SULFATE INJ) 3 mg Q2H PRN IV 01/19/18 20:30 02/02/18 20:29 Morphine Sulfate (MoRPHine SULFATE INJ) 2 mg Q2H PRN IV 01/19/18 20:30 02/02/18 20:29 Lactobacillus Acidophilus (Floranex Tab) 4 tab TIDM PO 01/20/18 12:30 02/19/18 12:29 Objective Vital Signs Date Time Temp Pulse Resp B/P (MAP) Pulse Ox O2 Delivery O2 Flow Rate FiO2 01/20/18 15:10 36.7 67 18 136/70 (92) 93 Room Air 01/20/18 07:32 36.5 69 18 132/77 (95) 94 Room Air 01/20/18 07:15 Room Air 01/19/18 23:45 36.5 79 15 132/74 (93) 95 Room Air 01/19/18 23:33 Room Air 01/19/18 21:32 Room Air Physical Exam General Appearance: + mild distress Eyes: normal inspection Neck: supple Respiratory/Chest: lungs clear, normal breath sounds Cardiovascular: regular rate, rhythm, no murmur Abdomen: normal bowel sounds, soft, + tenderness (epigastric and LUQ) Extremities: non-tender, no pedal edema Neurologic/Psychiatric: alert, oriented x 3 Skin: warm/dry Laboratory Results 01/20/18 07:25 Red Blood Count 4.65, Mean Corpuscular Volume 92.5, Mean Corpuscular Hemoglobin 31.4, Mean Corpuscular Hemoglobin Concent 34.0, Mean Platelet Volume 10.2, Neutrophils (%) (Auto) 81.4, Lymphocytes (%) (Auto) 10.0, Monocytes (%) (Auto) 7.9, Eosinophils (%) (Auto) 0.3, Basophils (%) (Auto) 0.2, Neutrophils # (Auto) 8.91, Lymphocytes # (Auto) 1.10, Monocytes # (Auto) 0.87, Eosinophils # (Auto) 0.03, Basophils # (Auto) 0.02 01/20/18 07:25 Test 01/20/18 07:25 White Blood Count 10.95 K/uL (4.8-10.8) Red Blood Count 4.65 M/uL (4.7-6.1) Hemoglobin 14.6 g/dL (14.0-18.0) Hematocrit 43.0 % (42-52) Mean Corpuscular Volume 92.5 fL (80-100) Mean Corpuscular Hemoglobin 31.4 pg (25-34) Mean Corpuscular Hemoglobin Concent 34.0 g/dl (32-36) Platelet Count 219 K/uL (130-400) Mean Platelet Volume 10.2 fL (7.4-10.4) Neutrophils (%) (Auto) 81.4 % Lymphocytes (%) (Auto) 10.0 % Monocytes (%) (Auto) 7.9 % Eosinophils (%) (Auto) 0.3 % Basophils (%) (Auto) 0.2 % Neutrophils # (Auto) 8.91 K/uL (1.4-6.5) Lymphocytes # (Auto) 1.10 K/uL (1.2-3.4) Monocytes # (Auto) 0.87 K/uL (0.11-0.59) Eosinophils # (Auto) 0.03 K/uL (0-0.5) Basophils # (Auto) 0.02 K/uL (0-0.2) RDW Standard Deviation 46.6 fL (36.4-46.3) RDW Coefficient of Variation 13.7 % (11.5-14.5) Immature Granulocyte % (Auto) 0.2 % Immature Granulocyte # (Auto) 0.02 K/uL (0.00-0.02) Anion Gap 3.0 mmol/L (3-11) Est Creatinine Clear Calc Drug Dose 77.5 ml/min Estimated GFR () 81.7 Estimated GFR (Non- 70.5 BUN/Creatinine Ratio 8.9 (10-20) Calcium Level 8.4 mg/dl (8.5-10.1) Assessment and Plan 57 yoM with hx of hiatal hernia w/t repair, cholecystectomy, SBO s/p laparotomy and lysis of adhesions (11/07) admitted for worsening Intermittent abdominal pain , nausea and vomiting. Mildly improved abdominal pain and n/v given pt on morphine, scheduled zofran and protonix IV. Concern for incarcerated stomach with no evidence of ischemia. Plan for robotic laparoscopic assisted surgery with Dr. Montano tomorrow. Abdominal pain, N/V: History of Hiatal Hernia - controlled - Hx of Hiatal hernia s/p repair - CT Abdomen (01/18): -Considerable increase in size of hiatal hernia with the bulk of the stomach now superior to the diaphragm. -Mild small bowel ileus with no obstructive pattern. - CT chest: large paraesophageal hiatal hernia, majority of stomach located in the thoracic cavity - Continue Protonix 40mg IV Q5H - Continue Zofran 4mg IV Q6H - Continue Clear liquid diet - Consulted General Surgery - more appropriate for Thoracic Surgery - Consulted Thoracic Surgery (Charmaine): - Barium swallow: large paraesophageal hernia; obstruction cannot be excluded. No evidence of volvulus. - Surgery tomorrow for concern of incarcerated stomach with no evidence of ischemia: robotic assisted laparoscopic approach Possible Pneumonia - afebrile, no leukocytosis, no focal lung findings - Abdominal CT showing Interstitial infiltrate left base - CT chest: lower lobes - like aspiration induced pneumonitis; trace pleural effusion L > R; 7mm noncalcified nodule RUL - ddx aspiration given n/v vs CAP - Continue Zosyn IV (provides abdominal and pulmonary coverage) DVT PPX: SCD's Code: Full Dispo: pending diet advancement and tolerance and improvement in abdominal pain , n/v s/p surgery Resident Physician Supervision Note: I interviewed and examined the patient. Discussed with Dr. Benavides and agree with findings and plan as documented in the note. Any exceptions or clarifications are listed here: None Documented By: Lion Madrigal nausea/vomiting again through the night for surgery tomorrow vitals noted nad but mildly ill appearing breathing unlabored no pallor or icterus intractable nausea/vomiting related to hiatal hernia - for surgical repair tomorrw, symptomatic care for now, stable question of aspiration pneumonia - stable on zosyn, continue at least perioperatively Resident Involvement: Resident Care Provided Care Provided: Adult Hospital Medicine
[2018-01-20 15:10] VITALS: BP 136/70; PULSE 67; TEMP 36.7; O2SAT 93
[2018-01-20 22:50] VITALS: BP 132/75; PULSE 86; TEMP 36.7; O2SAT 93
[2018-01-21] MEDS: PIPERACILL/TAZOBAC IV 3.375 GM in NSS 100ML IV SCH ×3 (00:04→22:15)
[2018-01-21] MEDS: D5W AND NSS 1,000 ML IV SCH ×3 (00:04→14:15)
[2018-01-21] MEDS: PANTOprazole INJ 40 MG in DEXTROSE 5% 100ML 100 ML IV SCH ×3 (00:05→10:19)
[2018-01-21] MEDS: MoRPHine SULFATE 4 MG/ML 1 ML CARP\\VIAL IV PRN ×3 (02:15→09:56)
[2018-01-21] MEDS: ONDANSETRON INJ 2 MG/ML 2 ML VIAL IV SCH ×3 (05:14→22:24)
[2018-01-21 05:23] LABS: BASO % 0.3 %; BASO ABS # 0.03 K/uL (0-0.2); EOS % 0.6 %; EOS ABS # 0.05 K/uL (0-0.5); HEMATOCRIT 40.2 % (42-52); HEMOGLOBIN 13.7 g/dL (14.0-18.0); IG# 0.01 K/uL (0.00-0.02); LYMPH ABS # 0.98 K/uL (1.2-3.4); MEAN CELL VOLUME 92.2 fL (80-100); MEAN CORPUSCULAR HEMOGLOBIN 31.4 pg (25-34); MEAN CORPUSCULAR HGB CONC 34.1 g/dl (32-36); MONO % 10.6 %; MONO ABS # 0.95 K/uL (0.11-0.59); NEUT % 77.4 %; NEUT ABS # 6.92 K/uL (1.4-6.5); PLATELET COUNT 191 K/uL (130-400); RED CELL DISTRIBUTION WIDTH CV 13.4 % (11.5-14.5); RED CELL DISTRIBUTION WIDTH SD 45.2 fL (36.4-46.3); WHITE BLOOD COUNT 8.94 K/uL (4.8-10.8)
[2018-01-21 06:07] LABS: CALCIUM 8.2 mg/dl (8.5-10.1); CREATININE 1.04 mg/dl (0.60-1.40); POTASSIUM 3.6 mmol/L (3.5-5.1)
[2018-01-21] MEDS: LACTOBACILLUS ACIDOPHILUS (FLORANEX) TAB PO SCH ×2 (07:55→12:30)
[2018-01-21 07:57] VITALS: BP_SYST 140; BP_SYST 160; BP_DIAS 62; BP_DIAS 80; PULSE 76; TEMP 36.6; O2SAT 95
--- NOTE | 2018-01-21 07:59 | History & Physical Bridge Note ---
H&P Re-Evaluation Bridge Note: I have examined the patient, reviewed the History & Physical and in the interval since the performance of the History & Physical I have noted the following changes of clinical significance: No changes noted
[2018-01-21 08:18] VITALS: O2SAT 95
[2018-01-21 08:26] VITALS: PULSE 65
[2018-01-21 08:33] VITALS: Ht 182.9 cm; Wt 86.2 kg
[2018-01-21] MEDS ORDERED: MIDAZOLAM HCL 1 MG/ML 2ML VIAL ONE (12:24)
[2018-01-21] MEDS ORDERED: FENTANYL CITRATE INJ 50 MCG/1 ML 2 ML VIAL ONE ×2 (12:25→15:27)
[2018-01-21] MEDS ORDERED: NURSING VERBAL MED ORDER ONE (12:30)
[2018-01-21] MEDS ORDERED: BUPIVACAINE 0.5 % 5 MG/1 ML MPF 30ML VIAL ONE (12:50)
[2018-01-21] MEDS ORDERED: SODIUM CHLORIDE 0.9% PF 50 ML VIAL ONE ×2 (12:50)
[2018-01-21] MEDS ORDERED: BUPIVACAINE LIPOSOME 1/3% 266 MG/20 ML VIAL ONE (12:50)
[2018-01-21] MEDS ORDERED: ALBUMIN HUMAN 5% 12.5 GM/250 ML VIAL IV ONE (13:48)
[2018-01-21] MEDS ORDERED: CISATRACURIUM BESYLATE IV SOLN 2 MG/ML 10 ML VIAL ONE ×2 (14:15→14:41)
[2018-01-21] MEDS ORDERED: PHENYLEPHRINE HCL INJ 10 MG/ML VIAL ONE ×2 (14:15→15:01)
[2018-01-21] MEDS ORDERED: GLYCOPYRROLATE INJ 0.2 MG/ML VIAL ONE (14:15)
[2018-01-21] MEDS ORDERED: ONDANSETRON INJ 2 MG/ML 2 ML VIAL ONE (14:15)
[2018-01-21] MEDS ORDERED: NEOSTIGMINE METHYLSULFATE 5 MG/5 ML SYR ONE (14:15)
[2018-01-21] MEDS ORDERED: DEXAMETHASONE SOD INJ 4 MG/ML VIAL ONE (14:15)
[2018-01-21] MEDS ORDERED: LIDOCAINE HCL 2% 2 ML VIAL (20MG/ML) ONE (14:15)
[2018-01-21] MEDS ORDERED: PROPOFOL IV EMULSION 10 MG/ML 20 ML VIAL ONE (14:15)
[2018-01-21] MEDS ORDERED: SUCCINYLCHOLINE CHLORIDE 20 MG/ML 10 ML VIAL IV ONE (14:15)
--- NOTE | 2018-01-21 14:48 | Family Medicine Progress Note ---
Progress Note Date of Service January 21, 2018. Subjective Pt evaluation today including: conversation w/ patient, physical exam, chart review, lab review Pain: 6-7/10 abdominal pain this AM PO Intake: clear diet - tolerating somewhat Voiding: no voiding problems This AM reports 6-7/10 abdominal pain again. A/w nausea and vomiting this AM. Otherwise asymptomatic Constitutional: No fever Respiratory: No shortness of breath Cardiovascular: No chest pain Abdomen: + pain, + nausea, + vomiting Male : No dysuria Medications Current Inpatient Medications Medications (Trade) Dose Ordered Sig/Blayne Route Start Time Stop Time Status Last Admin Dose Admin Ioversol (Optiray 320) 100 ml UD PRN IV 01/18/18 19:15 01/22/18 19:14 Acetaminophen (Tylenol Tab) 650 mg Q4H PRN PO 01/18/18 23:00 02/17/18 22:59 Al Hydrox/Mg Hydrox/Simethicone (Maalox Max Susp) 15 ml Q4H PRN PO 01/18/18 23:00 02/17/18 22:59 Magnesium Hydroxide (Milk Of Magnesia Susp) 30 ml Q6H PRN PO 01/18/18 23:00 02/17/18 22:59 Polyethylene (Miralax Powder Packet) 17 gm DAILY PRN PO 01/18/18 23:00 02/17/18 22:59 Prochlorperazine Edisylate 10 mg/ Syringe 10 ml @ 5 mls/min Q6H PRN IV 01/18/18 23:00 02/17/18 22:59 01/20/18 21:01 5 MLS/MIN Miscellaneous Information (Consult) 1 ea UD PRN N/A 01/19/18 01:00 02/18/18 00:59 Piperacillin Sod/ Tazobactam Sod 3.375 gm/Sodium Chloride 115 ml @ 28.75 mls/ hr Q8H IV 01/19/18 08:00 01/26/18 07:59 01/21/18 07:58 28.75 MLS/HR Pantoprazole Sodium 40 mg/ Dextrose 110 ml @ 20 mls/hr Q5H IV 01/19/18 03:45 02/18/18 03:44 Future hold 01/21/18 10:19 20 MLS/HR Dextrose/Sodium Chloride 1,000 ml @ 125 mls/hr Q8H IV 01/19/18 06:15 02/18/18 06:14 01/21/18 07:58 125 MLS/HR Ondansetron HCl (Zofran Inj) 4 mg Q6H IV 01/19/18 17:00 02/17/18 22:59 01/21/18 11:08 4 MG Morphine Sulfate (MoRPHine SULFATE INJ) 4 mg Q2H PRN IV 01/19/18 20:15 02/01/18 22:59 01/21/18 09:56 4 MG Morphine Sulfate (MoRPHine SULFATE INJ) 3 mg Q2H PRN IV 01/19/18 20:30 02/02/18 20:29 Morphine Sulfate (MoRPHine SULFATE INJ) 2 mg Q2H PRN IV 01/19/18 20:30 02/02/18 20:29 Lactobacillus Acidophilus (Floranex Tab) 4 tab TIDM PO 01/20/18 12:30 02/19/18 12:29 Objective Vital Signs Date Time Temp Pulse Resp B/P (MAP) Pulse Ox O2 Delivery O2 Flow Rate FiO2 01/21/18 09:39 Room Air 01/21/18 08:26 65 01/21/18 08:18 95 Room Air 01/21/18 07:57 36.6 76 20 140/62 (88) 95 Room Air 01/21/18 00:12 Room Air 01/20/18 22:50 36.7 86 16 132/75 (94) 93 Room Air 01/20/18 16:00 Room Air 01/20/18 15:10 36.7 67 18 136/70 (92) 93 Room Air Laboratory Results 01/21/18 05:08 Red Blood Count 4.36, Mean Corpuscular Volume 92.2, Mean Corpuscular Hemoglobin 31.4, Mean Corpuscular Hemoglobin Concent 34.1, Mean Platelet Volume 10.0, Neutrophils (%) (Auto) 77.4, Lymphocytes (%) (Auto) 11.0, Monocytes (%) (Auto) 10.6, Eosinophils (%) (Auto) 0.6, Basophils (%) (Auto) 0.3, Neutrophils # (Auto ) 6.92, Lymphocytes # (Auto) 0.98, Monocytes # (Auto) 0.95, Eosinophils # (Auto ) 0.05, Basophils # (Auto) 0.03 01/21/18 05:08 Test 01/21/18 05:08 White Blood Count 8.94 K/uL (4.8-10.8) Red Blood Count 4.36 M/uL (4.7-6.1) Hemoglobin 13.7 g/dL (14.0-18.0) Hematocrit 40.2 % (42-52) Mean Corpuscular Volume 92.2 fL (80-100) Mean Corpuscular Hemoglobin 31.4 pg (25-34) Mean Corpuscular Hemoglobin Concent 34.1 g/dl (32-36) Platelet Count 191 K/uL (130-400) Mean Platelet Volume 10.0 fL (7.4-10.4) Neutrophils (%) (Auto) 77.4 % Lymphocytes (%) (Auto) 11.0 % Monocytes (%) (Auto) 10.6 % Eosinophils (%) (Auto) 0.6 % Basophils (%) (Auto) 0.3 % Neutrophils # (Auto) 6.92 K/uL (1.4-6.5) Lymphocytes # (Auto) 0.98 K/uL (1.2-3.4) Monocytes # (Auto) 0.95 K/uL (0.11-0.59) Eosinophils # (Auto) 0.05 K/uL (0-0.5) Basophils # (Auto) 0.03 K/uL (0-0.2) RDW Standard Deviation 45.2 fL (36.4-46.3) RDW Coefficient of Variation 13.4 % (11.5-14.5) Immature Granulocyte % (Auto) 0.1 % Immature Granulocyte # (Auto) 0.01 K/uL (0.00-0.02) Anion Gap 3.0 mmol/L (3-11) Est Creatinine Clear Calc Drug Dose 85.0 ml/min Estimated GFR () 91.3 Estimated GFR (Non- 78.8 BUN/Creatinine Ratio 7.6 (10-20) Calcium Level 8.2 mg/dl (8.5-10.1) Assessment and Plan 57 yoM with hx of hiatal hernia w/t repair, cholecystectomy, SBO s/p laparotomy and lysis of adhesions (11/07) admitted for worsening Intermittent abdominal pain , nausea and vomiting. Persistent abdominal pain and n/v. pt on morphine, scheduled zofran and protonix IV. Concern for incarcerated stomach with no evidence of ischemia. Plan for robotic laparoscopic assisted surgery with Dr. Montano today Abdominal pain, N/V: History of Hiatal Hernia - controlled - Hx of Hiatal hernia s/p repair - CT Abdomen (01/18): -Considerable increase in size of hiatal hernia with the bulk of the stomach now superior to the diaphragm. -Mild small bowel ileus with no obstructive pattern. - CT chest: large paraesophageal hiatal hernia, majority of stomach located in the thoracic cavity - Continue Protonix 40mg IV Q5H - Continue Zofran 4mg IV Q6H - Continue Clear liquid diet - Consulted General Surgery - more appropriate for Thoracic Surgery - Consulted Thoracic Surgery (Charmaine): - Barium swallow: large paraesophageal hernia; obstruction cannot be excluded. No evidence of volvulus. - Surgery today for concern of incarcerated stomach with no evidence of ischemia: robotic assisted laparoscopic approach Possible Pneumonia - afebrile, no leukocytosis, no focal lung findings - Abdominal CT showing Interstitial infiltrate left base - CT chest: lower lobes - likely aspiration induced pneumonitis; trace pleural effusion L > R; 7mm noncalcified nodule RUL (follow up CT in 6 months) - ddx aspiration given n/v vs CAP - Continue Zosyn IV (provides abdominal and pulmonary coverage) DVT PPX: SCD's Code: Full Dispo: pending diet advancement and tolerance and improvement in abdominal pain , n/v s/p surgery Resident Physician Supervision Note: I interviewed and examined the patient. Discussed with Dr. Benavides and agree with findings and plan as documented in the note. Any exceptions or clarifications are listed here: None Documented By: Lion Madrigal seen post op feeling better already, not great but better vitals noted nad fatigued appearing breathing unlabored no pallor or icterus intractable nausea/vomiting related to hiatal hernia - post op, stable question of aspiration pneumonia - stable on zosyn, continue at least perioperatively Resident Involvement: Resident Care Provided Care Provided: Adult Hospital Medicine
[2018-01-21] MEDS ORDERED: EpHEDrine SULFATE 50MG/5ML SYR ONE (15:01)
[2018-01-21] MEDS ORDERED: NALOXONE HCL 0.4 MG/1 ML VIAL/CARP IV PRN (15:30)
[2018-01-21] MEDS ORDERED: LABETALOL HCL IV 5 MG/ML 20ML IV PRN (15:30)
[2018-01-21] MEDS ORDERED: FLUMAZENIL 0.1 MG/1 ML 10 ML VIAL IV PRN (15:30)
[2018-01-21] MEDS ORDERED: EpHEDrine SULFATE INJ 50 MG/ML AMP IV PRN (15:30)
[2018-01-21] MEDS ORDERED: HYDROmorphone INJ 2 MG/ML SYR/VIAL IV PRN (15:30)
[2018-01-21] MEDS ORDERED: ATROPINE SULFATE 0.1 MG/ML 5ML SYR IV PRN (15:30)
[2018-01-21] MEDS ORDERED: PROMETHAZINE HCL INJ 12.5 MG in SODIUM CHLORIDE 0.9% 50ML 50 ML IV PRN (15:30)
[2018-01-21] MEDS ORDERED: ONDANSETRON INJ 2 MG/ML 2 ML VIAL IV PRN (15:30)
[2018-01-21] MEDS ORDERED: CEFAZOLIN SOD 1 GM VIAL ONE (17:31)
[2018-01-21] MEDS ORDERED: HYDROmorphone INJ 2 MG/ML SYR/VIAL ONE ×2 (17:39→21:21)
[2018-01-21] MEDS ORDERED: SURGICEL ABSORB HEMOSTAT 2IN X 14IN TOP ONE (17:49)
--- NOTE | 2018-01-21 20:23 | [facility] Post Operative Brief Note ---
Immediate Operative Summary Operative Date January 21, 2018. Pre-Operative Diagnosis Recurrent paraesophageal hernia Post-Operative Diagnosis Recurrent paraesophageal hernia Procedure(s) Performed Robotic Assisted Laparoscopic Toupet Procedure Hiatal Hernia Repair reinforced with Ovitex Mesh, Esophagogastroduodenoscopy Reoperative Surgeon Dr Montano 3D Specialist Surgeon(s) Adal Cowan PA-C Estimated Blood Loss 100 mL Findings Consistent with Post-Op Diagnosis Specimens Permanent specimens A: Hernia sac Anesthesia Type General
[2018-01-21] MEDS ORDERED: METOCLOPRAMIDE HCL INJ 5 MG/ML 2 ML VIAL ONE (20:43)
[2018-01-21] MEDS ORDERED: MoRPHine SULFATE 4 MG/ML 1 ML CARP\\VIAL IV PRN (20:45)
[2018-01-21] MEDS ORDERED: OXYCODONE HCL IR 5 MG TAB (IMMEDIATE RELEASE) PO PRN (20:45)
[2018-01-21] MEDS: DOCUSATE SODIUM 100 MG CAP PO SCH (21:00)
[2018-01-21] MEDS ORDERED: METOCLOPRAMIDE HCL INJ 5 MG/ML 2 ML VIAL IV. STA (21:10)
--- NOTE | 2018-01-21 21:33 | DIAGNOSTIC IMAGING REPORT ---
CHEST ONE VIEW PORTABLE CLINICAL HISTORY: 57 years-old Male presenting with hiatal hernia . TECHNIQUE: Portable upright AP view of the chest was obtained. COMPARISON: 01/18/2018. FINDINGS: Atherosclerosis of the aortic arch. Prominence and tortuosity of the thoracic aorta. Cardiac silhouette top normal in size. Low lung volumes with hypoventilatory changes. Osseous structures normal. Large hiatal hernia. Free air under the diaphragm. Contrast noted in the subdiaphragmatic stomach. IMPRESSION: 1. Free intraperitoneal gas. This is highly concerning for hollow viscus perforation in the upper abdomen. 2. Large hilar hernia. 3. Low lung volumes with hypoventilatory changes. The report will be called/faxed according to standard departmental protocol. Electronically signed by: Pranay Singh M.D. 01/21/2018 9:32 PM Dictated Date/Time: 01/21/2018 9:30 PM
--- NOTE | 2018-01-21 21:35 | Anesthesiology Progress Note ---
Anesthesia Post Op Note Date & Time January 21, 2018 at 21:35 Vital Signs Pain Intensity: 6.0 Vital Signs Past 12 Hours Date Time Temp Pulse Resp B/P (MAP) Pulse Ox O2 Delivery O2 Flow Rate FiO2 01/21/18 21:30 83 15 96 01/21/18 21:30 84 15 01/21/18 21:25 85 16 144/99 98 01/21/18 21:25 86 16 01/21/18 21:20 89 19 01/21/18 21:20 88 19 142/93 98 01/21/18 21:15 85 19 137/87 98 01/21/18 21:15 86 19 01/21/18 21:10 79 14 01/21/18 21:10 79 14 146/95 93 01/21/18 21:05 90 17 01/21/18 21:05 91 17 143/86 95 01/21/18 21:01 126/55 01/21/18 21:00 96 17 97 01/21/18 21:00 96 17 01/21/18 20:55 90 17 132/87 01/21/18 20:55 36.0 93 15 132/87 97 Oxymask 10 01/21/18 20:55 17 01/21/18 09:39 Room Air Notes Mental Status: alert / awake / arousable, participated in evaluation Pt Amnestic to Procedure: Yes Nausea / Vomiting: adequately controlled Pain: adequately controlled Airway Patency, RR, SpO2: stable & adequate BP & HR: stable & adequate Hydration State: stable & adequate Anesthetic Complications: no major complications apparent
[2018-01-21 22:00] VITALS: BP 147/84; PULSE 90; TEMP 36.5; O2SAT 94
--- NOTE | 2018-01-21 22:09 | OPERATIVE REPORT ---
DATE OF OPERATION: 01/21/2018 PREOPERATIVE DIAGNOSIS: Incarcerated paraesophageal hernia - recurrent. POSTOPERATIVE DIAGNOSIS: Same. PROCEDURE PERFORMED: 1. Robot-assisted laparoscopic primary repair of diaphragmatic hernia after reduction of paraesophageal hernia. 2. Reinforcement of patch repair with an OviTex nonabsorbable mesh. 3. Toupet fundoplication. 4. Post-procedure esophagogastroscopy. SURGEON: Adan Montano MD BOOKING OFFICER: JOSE Fonseca ( Chapo was present for the entire case. He was at the patient's bedside while I was at the console. He expertly first assisted and closed the skin incisions at the conclusion of the case). ANESTHESIA: General anesthesia endotracheal intubation. INDICATION FOR PROCEDURE AND FINDINGS: Neil Colvin is a very healthy 57-year-old male who developed a large paraesophageal hernia 2 years ago and underwent a laparoscopic repair by Dr. Dave Lehman in 2016. He presented back with persistent vomiting but states he has had epigastric pain for several months and was found to have a large amount of his stomach in his chest. He was admitted and I was asked to see him. We had a barium swallow that showed his gastroesophageal junction was at the proper place, but he had a large paraesophageal hernia and his entire stomach was in his chest essentially; however, he did not appear to have torsion. DESCRIPTION OF PROCEDURE: On 01/21/2018, I brought the patient to the operating room and performed a reoperative robot-assisted laparoscopic takedown of his adhesions. He had a large defect after I freed this up. This was a meticulous dissection. I took out the hernia sac and I was able to get around the esophagus, although it was extremely difficult, particularly on the right side of the esophagus. At any rate, this is a large defect and a large space, but we were able to get this out nicely. Due to inflammation, it was difficult to dissect out the greater curvature, but we took down the short gastrics using the vessel sealer from [employer] in the robotic arm. We also used a Harmonic scalpel and cautery bhavin. I placed 6 ports. There was a 12 mm assistance port down near the umbilicus to the right of the rectus. I put a camera port just above the umbilicus, this was the 12 mm port. I put two 8-mm ports at the costal margin in midclavicular line. I then placed two 5 mm ports. The one on the right was a robotic arm and that was for a 5 mm retractor. The one on the left was for the liver retractor. After placing this and then insufflating CO2, we could see that the stomach was going into the chest. I grasped this with graspers and slowly pulled this out carefully and the entire stomach essentially came out except for one area posteriorly. I then began taking down adhesions on the left side first and anteriorly. This got us down into the sac very nicely and we took the sac out on the left side and then got anterior posteriorly to the esophagus. A bougie was placed so we could localize the esophagus. We really did not do much dissection directly on the esophagus. Attention was then turned towards the right side. The fat was stuck here and omentum was here. This was a meticulous dissection. We got all this down including the sac. We identified this, a 1-inch Maday was placed around the esophagus and it could be seen that it was in its proper position at the GE junction. Unfortunately, I had to take down all of this to completely free up the GE junction and freed up the rather attenuated diaphragmatic crura. I then used 0 silk which were pledgeted horizontal mattress sutures to repair the defect posteriorly. I placed 3 sutures in and this came together nicely and then placed 2 sutures anteriorly. This came together nicely. I then used a piece of OviTex and sutured this in place with 2-0 Prolene sutures. I completely covered the repair posteriorly and anteriorly. It did not go all the way around anteriorly, but this part of the diaphragm quite good. I was quite happy with it. I did not make it too tight. I then freed up the short gastrics using the vessel sealer and the stomach was very large. I then pulled the posterior fundus in a retroesophageal fashion and placed it and used a suture to essentially perform a Toupet by suturing it with 2-0 silk to the diaphragmatic crura anteriorly on the right. I then sutured the esophagus to the stomach essentially all the way down and then did the same thing on the right except that I pulled some of the fundus almost entirely around the esophagus, although I did not suture it to each other. This was to protect it from the mesh. This went very nicely. I then undocked the robot. I then performed an upper endoscopy. His stomach mucosa was friable and it was hemorrhagic, but appeared viable. We suctioned out a large amount of oral contrast. I then insufflated air well. We placed patient in Trendelenburg and placed saline around the repair site and there was no bubbling. I was quite happy with the appearance postoperatively. We closed the two 12-mm incisions with a #1 Maxon. A 4-0 Monocryl used in running subcuticular fashion to approximate the wound edges. He tolerated it quite well. I attest to the content of the Intraoperative Record and any orders documented therein. Any exception s are noted below.
[2018-01-21] MEDS: D5W AND 1/2NSS 1,000 ML IV SCH (22:15)
[2018-01-21] MEDS: ACETAMINOPHEN IV 1,000 MG in EMPTY BAG 0 ML IV SCH (22:24)
[2018-01-21] MEDS: METOCLOPRAMIDE HCL INJ 5 MG/ML 2 ML VIAL IV. SCH (22:24)
[2018-01-21] MEDS: KETOROLAC TROMETHAMINE 15 MG/ML VIAL IV. SCH (22:25)
[2018-01-21 22:32] VITALS: BP 135/88; PULSE 84; TEMP 36.6; O2SAT 92
[2018-01-21 23:00] VITALS: BP 111/69; PULSE 88; TEMP 36.4; O2SAT 93
[2018-01-22] VITALS (7 sets, daily range): BP systolic 114–124; BP diastolic 67–82; PULSE 82–93; TEMP 36.5–37.2; O2SAT 93–96
[2018-01-22] MEDS: ONDANSETRON INJ 2 MG/ML 2 ML VIAL IV SCH ×4 (03:09→14:43)
[2018-01-22] MEDS: PIPERACILL/TAZOBAC IV 3.375 GM in NSS 100ML IV SCH (05:37)
[2018-01-22] MEDS: ACETAMINOPHEN IV 1,000 MG in EMPTY BAG 0 ML IV SCH (05:37)
[2018-01-22] MEDS: KETOROLAC TROMETHAMINE 15 MG/ML VIAL IV. SCH ×2 (05:37→14:43)
[2018-01-22] MEDS: METOCLOPRAMIDE HCL INJ 5 MG/ML 2 ML VIAL IV. SCH (05:38)
[2018-01-22] MEDS: D5W AND 1/2NSS 1,000 ML IV SCH (05:41)
[2018-01-22 06:50] LABS: BASO % 0.1 %; BASO ABS # 0.01 K/uL (0-0.2); EOS % 0.1 %; EOS ABS # 0.01 K/uL (0-0.5); HEMATOCRIT 37.9 % (42-52); IG# 0.03 K/uL (0.00-0.02); LYMPH % 7.5 %; LYMPH ABS # 0.87 K/uL (1.2-3.4); MEAN CELL VOLUME 91.1 fL (80-100); MEAN CORPUSCULAR HEMOGLOBIN 31.3 pg (25-34); MEAN CORPUSCULAR HGB CONC 34.3 g/dl (32-36); MEAN PLATELET VOLUME 10.3 fL (7.4-10.4); MONO % 8.7 %; MONO ABS # 1.01 K/uL (0.11-0.59); NEUT % 83.3 %; NEUT ABS # 9.64 K/uL (1.4-6.5); PLATELET COUNT 207 K/uL (130-400); RED CELL DISTRIBUTION WIDTH CV 13.5 % (11.5-14.5); RED CELL DISTRIBUTION WIDTH SD 44.8 fL (36.4-46.3); WHITE BLOOD COUNT 11.57 K/uL (4.8-10.8)
[2018-01-22 07:17] LABS: CALCIUM 7.8 mg/dl (8.5-10.1); CREATININE 1.14 mg/dl (0.60-1.40); POTASSIUM 3.6 mmol/L (3.5-5.1)
[2018-01-22] MEDS: DOCUSATE SODIUM 100 MG CAP PO SCH ×2 (09:00→09:43)
[2018-01-22] MEDS ORDERED: ENOXAPARIN 40 MG/0.4 ML SYR SQ SCH (09:00)
--- NOTE | 2018-01-22 09:12 | DIAGNOSTIC IMAGING REPORT ---
SINGLE CONTRAST GASTROVIEW ESOPHAGRAM CLINICAL HISTORY: Status post hiatal hernia repair. COMPARISON STUDY: Barium esophagram dated 02.05. Chest CT dated 01/19/2018. TECHNIQUE: A single contrast Gastroview esophagram is performed. Multiple spot images of the esophagus are acquired. FINDINGS: The patient swallowed Gastroview without difficulty. The gastroesophageal junction distends normally. There is no evidence of intrinsic or extrinsic mass lesion. No aspiration was seen. The stomach is now located below the diaphragm. The duodenum is normal in configuration. No extraluminal contrast is identified. Cholecystectomy clips are identified in the right upper quadrant. Fluoroscopy time: 0.9 minutes. Fluoroscopic images: 12 IMPRESSION: 1. The stomach is now located below the diaphragm. 2. The gastroesophageal junction distends normally. No extraluminal contrast is seen. Electronically signed by: Brown Valerio M.D. 01/22/2018 9:10 AM Dictated Date/Time: 01/22/2018 8:20 AM
[2018-01-22] MEDS ORDERED: TRAM-453 PO ×2 (09:26)
[2018-01-22] MEDS ORDERED: TYLOTC325 PO ×2 (09:26)
--- NOTE | 2018-01-22 09:30 | Discharge Instructions ---
Discharge Instructions Date of Service January 22, 2018. Admission Reason for Admission: Epigastric Abdominal Pain, Hematemesis Discharge Discharge Diagnosis / Problem: Paraesophageal Hernia Discharge Goals Goal(s): Decrease discomfort, Improve function Activity Recommendations Activity Limitations: as noted below Lifting Limitations: no more than 10 pounds 1. Do not lift objects heaver than 10 pounds until cleared to do so by Dr. Montano. 2. DO not drive until cleared to do so by Dr. Montano. 3. Continue to consume a liquid diet and do NOT eat any food than requires chewing until cleared by Dr. Montano. . Instructions / Follow-Up Instructions / Follow-Up 1. You may remove dressing in 3 days and shower thereafter. No tub baths. 2. Office appointment with Dr. Montano in 1 week. Office will call you with date and time of appointment. 3. Take prilosec daily as opposed to as needed. Current Hospital Diet Patient's current hospital diet: Clear Liquid Diet Discharge Diet Recommended Diet: Full Liquid Diet Procedures Procedures Performed: Robotic Assisted Laparoscopic Toupet Procedure Hiatal Hernia Repair reinforced with Ovitex Mesh, Esophagogastroduodenoscopy Reoperative Pending Studies Studies pending at discharge: no Medical Emergencies . Who to Call and When: Medical Emergencies: If at any time you feel your situation is an emergency, please call 911 immediately. . Non-Emergent Contact Non-Emergency issues call your: Surgeon Call Non-Emergent contact if: you have a fever, your pain is not controlled, wound has increased drainage . "Provider Documentation" section prepared by Roc Cowan. .
[2018-01-22] MEDS ORDERED: OMEP20CA9 PO (09:31)
[2018-01-22] MEDS ORDERED: LANS30TA3 PO ×2 (12:10)
--- NOTE | 2018-01-22 13:45 | Discharge Summary ---
Discharge Summary Date of Service January 22, 2018. Discharge Summary Admission Date: Jan 18, 2018 at 23:22 Discharge Date: January 22, 2018 Discharge Disposition: Home Principal Diagnosis: Hiatal Hernia s/p repair Problems/Secondary Diagnoses: hx of previous hiatal hernia w/t repair hx of cholecystectomy Immunizations: Have You Had Influenza Vaccine: Unknown History of Tetanus Vaccine?: Yes Tetanus Immunization Date: February 18, 2013 History of Pneumococcal: Unknown History of Hepatitis B Vaccine: Yes Hepatitis Immunization Date: Mar 02, 2000 Procedures: SINGLE CONTRAST GASTROVIEW ESOPHAGRAM - POST PROCEDURE CLINICAL HISTORY: Status post hiatal hernia repair. COMPARISON STUDY: Barium esophagram dated 02.05. Chest CT dated 01/19/2018. TECHNIQUE: A single contrast Gastroview esophagram is performed. Multiple spot images of the esophagus are acquired. FINDINGS: The patient swallowed Gastroview without difficulty. The gastroesophageal junction distends normally. There is no evidence of intrinsic or extrinsic mass lesion. No aspiration was seen. The stomach is now located below the diaphragm. The duodenum is normal in configuration. No extraluminal contrast is identified. Cholecystectomy clips are identified in the right upper quadrant. Fluoroscopy time: 0.9 minutes. Fluoroscopic images: 12 IMPRESSION: 1. The stomach is now located below the diaphragm. ABD/PELVIS IV CONTRAST ONLY CT DOSE: 709.32 mGy.cm HISTORY: Pain. Obstruction. ABD PAIN, POSS OBSTRUCTION, IV CONTRAST ONLY TECHNIQUE: Multiaxial CT images of the abdomen and pelvis were performed following the use of intravenous contrast. A dose lowering technique was utilized adhering to the principles of ALARA. COMPARISON STUDY: 10/30/2016 FINDINGS: Mildly progressive interstitial change left base possibly inflammatory. Right base is clear. Fixed hiatal hernia increased in volume from the prior study. The bulk of the stomach is now superior to the diaphragmatic hiatus. The liver spleen and pancreas enhance uniformly. The kidneys enhance uniformly. Prior cholecystectomy. Bowel pattern is suggestive of a mild nonobstructive ileus. Scattered colonic diverticuli with no evidence for diverticulitis. Several repaired anterior abdominal wall hernias. No evidence for hernia recurrence. Colonic pattern is nonobstructive. No evidence for acute diverticulitis. IMPRESSION: 1. Considerable increase in size of a hiatal hernia with the bulk of the stomach now superior to the diaphragm. 2. Prior cholecystectomy. 3. Mild small bowel ileus with no evidence for an obstructive pattern. 4. Scattered colonic diverticuli with no evidence for diverticulitis. 5. Interstitial infiltrate left base (BARIUM SWALLOW) ESOPHAGUS PRE PROCEDURE CLINICAL HISTORY: 57 years-old Male presenting with hiatal hernia, history of repair, epigastric pain and hematemesis. TECHNIQUE: A standard air contrast barium esophagram is performed. Multiple spot images of the esophagus are acquired both upright and prone. COMPARISON: Chest CT from 01/19/2018. FINDINGS: The patient was able to ingest barium though experiencing significant nausea. Normal mucosal pattern. No evidence of intrinsic or extrinsic mass lesion. No aspiration observed. The gastroesophageal junction was located normally at the level of the diaphragm. The gastroesophageal junction distended normally. Filling of the proximal stomach was located below the diaphragm, the remaining stomach to the level of the antrum was located above the diaphragm. No contrast was observed transiting through the pylorus. Mild gastric distention evident. Fluoroscopy dosage (mGy): Not available. Fluoroscopy time: 1.9 minutes. Number of fluoroscopic spot images: 26. IMPRESSION: Findings consistent with large paraesophageal hernia. Obstruction is difficult to exclude given the absence of contrast transiting through the pylorus. No gross evidence of volvulus. CHEST ONE VIEW PORTABLE CLINICAL HISTORY: ABDOMINAL PAIN/GI pain COMPARISON STUDY: 10/30/2016 FINDINGS: Fixed hiatal hernia. Lungs otherwise are clear.-The diaphragms are smooth. No significant cardiac enlargement. IMPRESSION: Hiatal hernia. Otherwise negative study. Consultations: General Surgery Thoracic Surgery - Dr. Montano Medication Reconciliation New Medications: Acetaminophen (Tylenol) 325 Mg Tab 650 MG PO Q6H PRN for Pain for 30 Days, 0 Refills Lansoprazole (Prevacid Solutab) 30 Mg Lachelle 30 MG PO BID for 30 Days, #60 TAB Tramadol Hcl (Ultram) 50 Mg Tab 50 MG PO Q4H PRN for Pain, #18 TAB PRN PAIN Continued Medications: Coenzyme Q10 (Ubidecarenone) (Co Q-10) Unknown Strength Cap 1 CAP PO DAILY Garlic (Garlic) Unknown Strength Cap 1 CAP PO BID Magnesium Oxide (Mag-Ox) 400 Mg Tab 400 MG PO DAILY, TAB Misc Natural Products (Saw [place]) 1 Cap Cap 1 CAP PO DAILY Multivitamin (Multivitamin) Tab 1 TAB PO DAILY, TAB [place]-3 Fatty Acids (Fish Oil) 1 Cap Cap 1 CAP PO BID Turmeric (Curcuma Longa) (Turmeric) Unknown Strength Cap Unknown Dose PO DAILY Vitamin D & K (D3 + K2 Dots) 1 Tab Tab 1 TAB PO DAILY [[place] 7] () 1 CAP PO DAILY Discontinued Medications: Omeprazole (Prilosec) 20 Mg Cap 20 MG PO DAILY PRN for GI Upset Discharge Exam Review of Systems: Constitutional: No fever Respiratory: No shortness of breath Cardiovascular: No chest pain Abdomen: + pain (improved), No nausea, No vomiting Genitourinary - Male: No dysuria Physical Exam: General Appearance: no apparent distress Eyes: normal inspection Neck: supple Respiratory/Chest: lungs clear, normal breath sounds Cardiovascular: regular rate, rhythm, no murmur Abdomen / GI: normal bowel sounds, soft, + tenderness (to palpation over incision sites (6 laparoscopy incision sites - dressing C/D/I)) Extremities: normal inspection, no pedal edema Neurologic/Psychiatric: alert, oriented x 3 Skin: warm/dry Hospital Course 57 yoM with hx of hiatal hernia w/t repair, cholecystectomy, SBO s/p laparotomy and lysis of adhesions (11/07) admitted for worsening Intermittent abdominal pain , nausea and vomiting. Found to have a hiatal hernia with concern for incarcerated stomach but no evidence of ischemia. Had robotic laparoscopic assisted surgery with Dr. Montano on 01/21/18. Post surgery had improved abdominal pain and n/v and tolerated clear liquid diet. Abdominal pain, N/V: History of Hiatal Hernia - improved s/p surgery - Hx of previous Hiatal hernia s/p repair - CT Abdomen (01/18): -Considerable increase in size of hiatal hernia with the bulk of the stomach now superior to the diaphragm. -Mild small bowel ileus with no obstructive pattern. - CT chest: large paraesophageal hiatal hernia, majority of stomach located in the thoracic cavity - Received Protonix 40mg IV Q5H - Received Zofran 4mg IV Q6H and Reglan 10mg Q8H IV (post surgery) - Received Zosyn IV - Received Toradol, Morphine, Oxycodone and Tylenol for pain - Was on a clear liquid diet - Consulted General Surgery - more appropriate for Thoracic Surgery - Consulted Thoracic Surgery (Charmaine): - Barium swallow: large paraesophageal hernia; obstruction cannot be excluded. No evidence of volvulus. - Surgery on 01/21 for concern of incarcerated stomach with no evidence of ischemia: robotic assisted laparoscopic approach Possible Pneumonia - afebrile, no leukocytosis, no focal lung findings - Abdominal CT showing Interstitial infiltrate left base - CT chest: lower lobes - likely aspiration induced pneumonitis; trace pleural effusion L > R; 7mm noncalcified nodule RUL (follow up CT in 6 months) - ddx aspiration given n/v vs CAP - Received Zosyn IV (provides abdominal and pulmonary coverage) DVT PPX: SCD's Code: Full Dispo: home Resident Physician Supervision Note: I interviewed and examined the patient. Discussed with Dr. Benavides and agree with findings and plan as documented in the note. Any exceptions or clarifications are listed here: None Documented By: Lion Madrigal feeling better overall - notes that he's ready to go home d/w thoracic surgery stable for discharge and input greatly appreciated vitals noted nad ambulating wtihout difficulty intractable nausea/vomiting - from hiatal hernia - now improved post repair. gastritis from above PPI for now stable for discharge, outpt thoracic follow up Total Time Spent: Less than 30 minutes This includes examination of the patient, discharge planning, medication reconciliation, and communication with other providers. Discharge Instructions Please refer to the electronic Patient Visit Report (Discharge Instructions) for additional information. Additional Copies To Adan Montano MD
--- NOTE | 2018-01-23 00:56 | DISCHARGE SUMMARY ---
HOSPITAL COURSE: Mr. 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 He was quite uncomfortable. He had laparoscopic repair of a similar situation 2 years ago. The patient had the major operation yesterday with a reoperative fundoplication. I did a Toupet fundoplication to protect the stomach from the nonabsorbable mesh I placed around the hiatal hernia repair. The patient looks great. We did a swallowing study today and it looks absolutely superb. There is no leak. It goes through well. He feels much better. He and his were quite pleased with how well he feels. I am going to allow him to be discharged today. I will see him back next week.
== END 2018-01-22 15:25 | disposition home or self-care (01) | DRG 326 ==
LOC: C.EDB 18:45 → C.MSN 23:22 → ENRESERV 23:40
PROVIDERS: ADMIT Hospitalist; ATTEND Hospitalist
PROC: 0DJ08ZZ Inspection of Upper Intestinal Tract, Via Natural or Artificial Opening Endoscopic (ICD-10-PCS; principal; 2018-01-21 11:45)
PROC: 0WUF4JZ Supplement Abdominal Wall with Synthetic Substitute, Percutaneous Endoscopic Approach (ICD-10-PCS; principal; 2018-01-21 11:45)
PROC: 0DV44ZZ Restriction of Esophagogastric Junction, Percutaneous Endoscopic Approach (ICD-10-PCS; principal; 2018-01-21 11:45)
PROC: 8E0W4CZ Robotic Assisted Procedure of Trunk Region, Percutaneous Endoscopic Approach (ICD-10-PCS; principal; 2018-01-21 11:45)
DX: K44.0 Diaphragmatic hernia with obstruction, without gangrene (principal); J69.0 Pneumonitis due to inhalation of food and vomit; Z79.899 Other long term (current) drug therapy; Z82.49 Family history of ischemic heart disease and other diseases of the circulatory system; Z90.49 Acquired absence of other specified parts of digestive tract; Z87.19 Personal history of other diseases of the digestive system

== ENCOUNTER → 2018-01-25 | Outpatient (CLI) | payer BC ==
[~2018-01-25] MED LIST changes: +COEN100C3 PO; +GARL1CAP6 PO; +LANS30TA3 PO; +MAGN400T6 PO; +MISC1CAP60 PO; +MULT-506 PO; +OMEGA 7 PO; +OMEGCAP2 PO; +TRAM-453 PO; +TURM1CAP4 PO; +TYLOTC325 PO; +VITATAB8 PO
--- NOTE | 2018-01-25 14:07 | DIAGNOSTIC IMAGING REPORT ---
CHEST 2 VIEWS ROUTINE CLINICAL HISTORY: K44.9 Paraesophageal [id number] COMPARISON STUDY: 01/21/2018 FINDINGS: The heart is normal in size. There are left basal airspace opacity suspicious for a pneumonitis. There is blunting of the left lateral costophrenic angle. This may indicate a small left pleural effusion. There is a lucency at the right lung base. This could indicate a small amount of free intraperitoneal air versus platelike atelectatic change.[ IMPRESSION: 1. Left basilar airspace opacity suspicious for pneumonia 2. Small left pleural effusion 3. Small amount of free intraperitoneal air versus platelike atelectatic change at the right lung base Electronically signed by: Adiel Jones M.D. 01/25/2018 2:05 PM Dictated Date/Time: 01/25/2018 2:03 PM
== END | disposition home or self-care (01) ==
LOC: C.RAD1850 13:55
PROVIDERS: ATTEND Surgery
DX: K44.9 Diaphragmatic hernia without obstruction or gangrene (principal); R91.8 Other nonspecific abnormal finding of lung field; J90 Pleural effusion, not elsewhere classified

== ENCOUNTER → 2018-01-28 | Outpatient (CLI) | payer BC ==
[~2018-01-28] MED LIST changes: -DICY20TA10 PO; -LVT/20 PO; -OMEP20CA9 PO
--- NOTE | 2018-01-28 12:55 | DIAGNOSTIC IMAGING REPORT ---
CHEST 2 VIEWS ROUTINE CLINICAL HISTORY: K44.9 pneumonia COMPARISON STUDY: 01/25/2018 FINDINGS: Improved left basilar infiltrate. Slight minimal residual interstitial change. There may be a small component of hiatal hernia. Upper lungs are clear. No well-defined subdiaphragmatic free air is present currently. IMPRESSION: Improved appearance left base. The above report was generated using voice recognition software. It may contain grammatical, syntax or spelling errors. Electronically signed by: Negrito Haile M.D. 01/28/2018 12:54 PM Dictated Date/Time: 01/28/2018 12:52 PM
== END | disposition home or self-care (01) ==
LOC: C.RAD1850 12:44
PROVIDERS: ATTEND Surgery
DX: K44.9 Diaphragmatic hernia without obstruction or gangrene (principal)